=== PATIENT | female | born 1965 | race Caucasian/White ===

== ENCOUNTER 2016-07-30 07:55 | Inpatient (IN) | payer MEDICARE, BC ==
[2016-07-30] MEDS ORDERED: SODIUM CHLORIDE 0.9% 1,000 ML IV STA (08:00)
[2016-07-30] MEDS ORDERED: IPRATROPIUM-ALBUTEROL 3 ML NEB INHALATION STA (08:01)
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
[2016-07-30 08:54] LABS: Basophils # (A) 0.2 k/uL (0-0.2); Basophils % (A) 2 %; CH 30.5; CHCM 31.7; Eosinophils # (A) 0.2 k/uL (0-0.7); Eosinophils % (A) 2 %; HCT 48.5 % (34.0-46.0); HDW 3.07; HGB 15.2 gm/dL (11.4-16.0); Hypochromasia Slight; Luc # (Auto) 0.16; Luc % (Auto) 2; Lymphocytes # (A) 0.9 k/uL (1.0-4.8); Lymphocytes % (A) 11 %; MCH 30.3 pg (25.0-35.0); MCHC 31.3 g/dL (31.0-37.0); MCV 96.7 fL (80.0-100.0); Mean Platelet Volume 8.9; Monocytes # (A) 0.5 k/uL (0-1.0); Monocytes % (A) 7 %; Neutrophils # (A) 5.8 k/uL (1.3-7.7); Neutrophils % (A) 75 %; RBC 5.02 m/uL (3.80-5.40); RDW 15.2 % (11.5-15.5); WBC 7.7 k/uL (3.8-10.6); WBC (Perox) 7.88
[2016-07-30 09:05] LABS: ALT 38 U/L (9-52); AST 24 U/L (14-36); Alkaline Phosphatase 105 U/L (38-126); Anion Gap 12 mmol/L; Blood Urea Nitrogen 19 mg/dL (7-17); Calcium 9.3 mg/dL (8.4-10.2); Carbon Dioxide 28 mmol/L (22-30); Chloride 103 mmol/L (98-107); Glucose 287 mg/dL (74-99); Magnesium 1.9 mg/dL (1.6-2.3); Non-African American GFR(MDRD) 59 (>60 ml/min/1.73 sqM); Potassium 3.7 mmol/L (3.5-5.1); Sodium 143 mmol/L (137-145); Total Bilirubin 0.7 mg/dL (0.2-1.3); Total Protein 6.8 g/dL (6.3-8.2)
[2016-07-30 09:23] LABS: Partial Thromboplastin Time 22.7 sec (22.0-30.0); Prothrombin Time 10.3 sec (9.0-12.0)
[2016-07-30 09:29] LABS: Creatine Kinase 216 U/L (30-135)
[2016-07-30 09:42] LABS: Troponin I <0.012 ng/mL (0.000-0.034)
[2016-07-30 09:45] LABS: Creatine Kinase MB 3.5 ng/mL (0.0-2.4)
--- NOTE | 2016-07-30 10:11 | XR ---
EXAMINATION TYPE: XR chest 1V DATE OF EXAM: 07/30/2016 9:35 AM COMPARISON: 04/08/2016 HISTORY: 51-year-old female difficulty breathing TECHNIQUE: Single frontal view of the chest is obtained. FINDINGS: Heart is mildly enlarged. Diffuse interstitial and vascular prominence. No consolidation or pleural e ffusion. IMPRESSION: Lateral view cannot be obtained due to patient's condition. There is cardiomegaly and mild interstiti al prominence. Correlate for mild pulmonary vascular congestion.
[2016-07-30] MEDS ORDERED: ONDANSETRON 4 MG TAB PO PRN (12:30)
[2016-07-30] MEDS: CLINDAMYCIN 300 MG in DEXTROSE 5% IN WATER 50 ML IVPB SCH ×6 (15:53→23:32)
[2016-07-30] MEDS: SODIUM CHLORIDE 0.9% 1,000 ML IV SCH (15:56)
[2016-07-30] MEDS ORDERED: GABAPENTIN 400 MG CAP PO SCH (16:00)
[2016-07-30] MEDS: IPRATROPIUM-ALBUTEROL 3 ML NEB INHALATION SCH ×2 (16:41→21:09)
[2016-07-30 17:05] LABS: Glucose,Whole Blood 326 mg/dL (75-99)
[2016-07-30] MEDS ORDERED: LORazepam 0.5 MG TAB PO PRN (17:19)
[2016-07-30] MEDS: INSULIN NPL/INSULIN LISPRO 100 UNIT/ML 10 ML VIAL (Humalog 75/25) SQ SCH (17:22)
[2016-07-30] MEDS: INSULIN LISPRO (humaLOG) 300 UNIT/3 ML VIAL SQ SCH ×2 (17:23→20:35)
[2016-07-30] MEDS ORDERED: methylPREDNISolone SOD SUCCI 125 MG/2 ML VIAL IV SCH (18:00)
[2016-07-30] MEDS: ENOXAPARIN 40 MG/0.4 ML SYRINGE SQ SCH (18:52)
[2016-07-30] MEDS: GABAPENTIN 300 MG CAP PO SCH ×2 (18:52→21:27)
[2016-07-30] MEDS: TOPIRAMATE 100 MG TAB PO SCH (18:53)
[2016-07-30 19:32] LABS: Hemoglobin A1C 7.8 % (4.2-6.1)
[2016-07-30] MEDS: MORPHINE SULFATE ER 60 MG TABLET PO SCH (20:33)
[2016-07-30] MEDS: ATORVASTATIN 20 MG TAB PO SCH (20:34)
[2016-07-30] MEDS: busPIRone HCl 10 MG TAB PO SCH (20:34)
[2016-07-30] MEDS: MELOXICAM 7.5 MG TAB PO SCH (20:34)
[2016-07-30] MEDS: METOCLOPRAMIDE 10 MG TAB PO SCH (20:34)
[2016-07-30] MEDS: SERTRALINE 100 MG TAB PO SCH (20:35)
[2016-07-30 20:41] LABS: Glucose,Whole Blood 312 mg/dL (75-99)
[2016-07-30] MEDS: BACLOFEN 10 MG TAB PO SCH (21:27)
[2016-07-30] MEDS: OXYBUTYNIN CHLORIDE 5 MG TAB PO SCH (21:27)
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
[2016-07-30] MEDS: methylPREDNISolone SOD SUCCI 40 MG/ML 1 ML VIAL IV SCH (23:32)
[2016-07-31] MEDS: IPRATROPIUM-ALBUTEROL 3 ML NEB INHALATION SCH ×6 (00:30→19:35)
[2016-07-31 02:26] LABS: Glucose,Whole Blood 216 mg/dL (75-99)
[2016-07-31] MEDS: HYDROcodone/APAP 10-325MG 1 EACH TAB PO PRN ×2 (04:12→23:46)
[2016-07-31] MEDS: LEVOTHYROXINE 100 MCG TAB PO SCH (06:10)
[2016-07-31] MEDS: CLINDAMYCIN 300 MG in DEXTROSE 5% IN WATER 50 ML IVPB SCH ×8 (06:10→23:46)
[2016-07-31] MEDS ORDERED: NON-FORMULARY DRUG (Dextroamphetamine/Amphetamine [Adderall] 20 MG) PO SCH (07:00)
[2016-07-31 07:41] LABS: Glucose,Whole Blood 312 mg/dL (75-99)
[2016-07-31] MEDS: busPIRone HCl 10 MG TAB PO SCH ×2 (08:20→21:23)
[2016-07-31] MEDS: GABAPENTIN 300 MG CAP PO SCH ×3 (08:20→21:26)
[2016-07-31] MEDS: OXYBUTYNIN CHLORIDE 5 MG TAB PO SCH ×3 (08:20→21:26)
[2016-07-31] MEDS: methylPREDNISolone SOD SUCCI 40 MG/ML 1 ML VIAL IV SCH ×2 (08:20→17:59)
[2016-07-31] MEDS: TOPIRAMATE 100 MG TAB PO SCH ×2 (08:21→17:45)
[2016-07-31] MEDS: SERTRALINE 100 MG TAB PO SCH ×2 (08:21→21:26)
[2016-07-31] MEDS: BACLOFEN 10 MG TAB PO SCH ×3 (08:21→21:26)
[2016-07-31] MEDS: MELOXICAM 7.5 MG TAB PO SCH ×2 (08:21→21:24)
[2016-07-31] MEDS: MORPHINE SULFATE ER 60 MG TABLET PO SCH ×2 (08:22→21:27)
[2016-07-31] MEDS: INSULIN NPL/INSULIN LISPRO 100 UNIT/ML 10 ML VIAL (Humalog 75/25) SQ SCH ×2 (08:28→17:49)
[2016-07-31] MEDS: INSULIN LISPRO (humaLOG) 300 UNIT/3 ML VIAL SQ SCH ×4 (08:28→21:23)
[2016-07-31] MEDS ORDERED: LEVOFLOXACIN 500 MG TAB PO SCH (09:00)
[2016-07-31 12:48] LABS: Glucose,Whole Blood 287 mg/dL (75-99)
[2016-07-31] MEDS ORDERED: MAG HYDROX/AL HYDROX/SIMETH 30 ML CUP PO PRN (13:24)
[2016-07-31] MEDS: SODIUM CHLORIDE 0.9% 1,000 ML IV SCH (14:31)
[2016-07-31 14:53] LABS: Appearance,Urine Clear (Clear); Bilirubin,Urine Negative (Negative); Glucose,Urine (UA) 4+ (Negative); Ketones,Urine Negative (Negative); Leukocyte Esterase,Urine Negative (Negative); Nitrite,Urine Negative (Negative); PH, Urine 6.5 (5.0-8.0); Protein,Urine Negative (Negative); Specific Gravity,Urine 1.014 (1.001-1.035); UA Billing (MACRO vs. MICRO) CHEM; Urobilinogen,Urine <2.0 mg/dL (<2.0)
[2016-07-31 17:28] LABS: Glucose,Whole Blood 310 mg/dL (75-99)
[2016-07-31] MEDS: ENOXAPARIN 40 MG/0.4 ML SYRINGE SQ SCH (17:43)
[2016-07-31] MEDS ORDERED: TAMSULOSIN 0.4 MG CAP.ER.24H PO SCH (18:30)
[2016-07-31] MEDS: ATORVASTATIN 20 MG TAB PO SCH (21:23)
[2016-07-31] MEDS: METOCLOPRAMIDE 10 MG TAB PO SCH (21:25)
[2016-07-31 21:31] LABS: Glucose,Whole Blood 243 mg/dL (75-99)
--- NOTE | 2016-07-31 22:56 | PN ---
DATE OF SERVICE: 07/31/2016 PRESENTING COMPLAINT: Pneumonia. INTERVAL HISTORY: This patient presented with pneumonia with sepsis-like picture presentation. Cough is better, breathing better, tolerating a diet. Patient did have urine retention, ( )100. Lying in bed. Review of systems done for constitutional, cardiovascular, GI, pulmonary; as above. Current medications are reviewed that include: IV clindamycin and ( ). On examination, temperature 98.5, pulse 87, respirations 20, blood pressure 120/66, pulse ox 94% on nasal cannula. GENERAL APPEARANCE: Lying in bed, comfortable. EYES: Pupils equal. Conjunctivae normal. NECK: JVD not raised. Mass not palpable. RESPIRATORY: Effort increased. LUNGS: Diminished breath sounds. CARDIOVASCULAR: First and second sounds normal. No edema. ABDOMEN: Soft, nontender. Liver and spleen not palpable. PSYCHIATRY: Awake, answering questions appropriately. INVESTIGATIONS: Accu-Cheks are noted. Blood cultures are negative. ASSESSMENT: 1. Possible pneumonia with sepsis like presentation with some clinical response. 2. Moderate obesity body mass index of 47.8. 3. Diabetes mellitus type 2, chronically on insulin. 4. Primary osteoarthritis of multiple joints, bilateral. 5. Hypothyroidism. 6. Peripheral neuropathy secondary to diabetes. 7. Chronic low back pain. 8. Depression not otherwise specified. 9. Restless leg syndrome. 10. Possible acute metabolic encephalopathy, on presentation with sepsis, with clinical improvement. 11. Acute urinary retention, could be underlying sepsis. PLAN: Straight catheter was placed. We will put the patient on Flomax. Continue with antibiotics for another 24 hours, switched to p.o. steroids.
[2016-08-01] MEDS: IPRATROPIUM-ALBUTEROL 3 ML NEB INHALATION SCH ×5 (00:29→16:31)
[2016-08-01 03:20] LABS: Glucose,Whole Blood 152 mg/dL (75-99)
[2016-08-01] MEDS: CLINDAMYCIN 300 MG in DEXTROSE 5% IN WATER 50 ML IVPB SCH ×4 (05:46→13:14)
[2016-08-01] MEDS: LEVOTHYROXINE 100 MCG TAB PO SCH (05:47)
[2016-08-01 07:55] LABS: Glucose,Whole Blood 283 mg/dL (75-99)
[2016-08-01 08:13] VITALS: BP 157/67; RESP 22; TEMP 97.6
[2016-08-01] MEDS: busPIRone HCl 10 MG TAB PO SCH (08:33)
[2016-08-01] MEDS: BACLOFEN 10 MG TAB PO SCH ×2 (08:33→16:58)
[2016-08-01] MEDS: INSULIN LISPRO (humaLOG) 300 UNIT/3 ML VIAL SQ SCH ×2 (08:33→13:14)
[2016-08-01] MEDS: INSULIN NPL/INSULIN LISPRO 100 UNIT/ML 10 ML VIAL (Humalog 75/25) SQ SCH (08:33)
[2016-08-01] MEDS: GABAPENTIN 300 MG CAP PO SCH ×2 (08:34→16:58)
[2016-08-01] MEDS: MORPHINE SULFATE ER 60 MG TABLET PO SCH (08:34)
[2016-08-01] MEDS: MELOXICAM 7.5 MG TAB PO SCH (08:34)
[2016-08-01] MEDS: SERTRALINE 100 MG TAB PO SCH (08:35)
[2016-08-01] MEDS: OXYBUTYNIN CHLORIDE 5 MG TAB PO SCH ×2 (08:35→16:58)
[2016-08-01] MEDS: TOPIRAMATE 100 MG TAB PO SCH (08:35)
[2016-08-01] MEDS ORDERED: predniSONE 20 MG TAB PO SCH (09:00)
[2016-08-01 12:17] LABS: Glucose,Whole Blood 278 mg/dL (75-99)
[2016-08-01] MEDS: SODIUM CHLORIDE 0.9% 1,000 ML IV SCH (13:17)
[2016-08-01 16:34] VITALS: PULSE 70
--- NOTE | 2016-08-03 12:44 | DS ---
DATE OF ADMISSION: 07/30/2016 DATE OF DISCHARGE: 08/01/2016 FINAL DIAGNOSIS(ES): 1. Possible pneumonia with sepsis ( ) presentation. 2. Moderate obesity body mass index of 47.8. 3. Diabetes mellitus type 2, chronically on insulin. 4. Chronic urinary incontinence. 5. Primary osteoarthritis, multiple joints, bilateral. 6. Hypothyroidism, chronic. 7. Peripheral neuropathy secondary to diabetes. 8. Chronic low back pain, probably osteoarthritis. 9. Depression not otherwise specified. 10. Restless leg syndrome. 11. Acute metabolic encephalopathy on presentation with sepsis could be some contribution from pain medications. 12. Acute urinary retention, probably from underlying sepsis. HOSPITAL COURSE: This patient presented with pneumonia, sepsis like picture, responded well to antibiotics. Back to her baseline. Keen to go home. The patient with rather hefty dose of pain medications. I did make some changes. The patient is still well controlled. I did decrease Neurontin from 800 mg 3 times a day down to 400 mg 3 times a day. Also, the baclofen from 20 mg three times a day to 10 mg 3 times a day. As ( ) higher doses of pain medication, normally the side effects take over with not too much benefit in pain. Care was discussed with the patient. On examination: LUNGS: Fair air entry. PSYCH: Alert and oriented x3. Mood and affect is normal. DISCHARGE MEDICATIONS: 1. Lipitor 20 mg q.h.s. 2. Adderall 20 mg b.i.d. 3. Lasix ( ) mg daily p.r.n. 4. [place] 10 1 tablets q.8 p.r.n. 5. Ativan 0.5 p.o. daily p.r.n. 6. Levothyroxine 300 mcg p.o. daily. 7. Mobic 7.5 p.o. b.i.d. 8. MS Contin 50 mg p.o. q.12. 9. Zofran 1 mg p.o. q.8 p.r.n. 10. Ditropan 500 mg p.o. t.i.d. 11. Potassium 20 meq p.o. daily. 12. Zoloft 100 mg p.o. b.i.d. 13. Topamax 100 mg p.o. daily. 14. ( ) mg before supper. 15. BuSpar 10 mg p.o. b.i.d. 16. Requip 1 mg p.o. q.h.s. 17. Humalog mix 75/( ) 40 units subcu b.i.d. 18. Proventil HFA 2 puffs q.6 p.r.n. 19. Humalog per t.i.d. 20. Silvadene cream topical daily. 21. Baclofen 10 mg p.o. t.i.d. 22. Clindamycin 150 mg p.o. q.6 24 capsules. 23. Neurontin 400 mg p.o. t.i.d., new dose. 24. Flomax 0.4 mg at supper. 25. Prednisone 40 mg for 3 days. Patient to follow up with Dr. Sánchez on 08/04/2016. Care was discussed with the patient.
== END 2016-08-01 17:36 | disposition home health service (06) | DRG 871 ==
LOC: EC 07:55 → 5MS5E 12:28 → 4MS4W 14:40
PROVIDERS: ADMIT Hospitalist; ATTEND Hospitalist
DX: A41.9 Sepsis, unspecified organism (principal); J18.9 Pneumonia, unspecified organism; G93.41 Metabolic encephalopathy; J44.0 Chronic obstructive pulmonary disease with (acute) lower respiratory infection; J44.1 Chronic obstructive pulmonary disease with (acute) exacerbation; E11.42 Type 2 diabetes mellitus with diabetic polyneuropathy; I50.9 Heart failure, unspecified; E03.9 Hypothyroidism, unspecified; E66.01 Morbid (severe) obesity due to excess calories; F32.9 Major depressive disorder, single episode, unspecified; G25.81 Restless legs syndrome; G89.4 Chronic pain syndrome; M15.9 Polyosteoarthritis, unspecified; R09.02 Hypoxemia; R32 Unspecified urinary incontinence; R33.9 Retention of urine, unspecified; I65.29 Occlusion and stenosis of unspecified carotid artery; M47.896 Other spondylosis, lumbar region; R53.82 Chronic fatigue, unspecified; Z68.42 Body mass index [BMI] 45.0-49.9, adult; Z79.4 Long term (current) use of insulin; Z79.899 Other long term (current) drug therapy; Z86.14 Personal history of Methicillin resistant Staphylococcus aureus infection; Z88.5 Allergy status to narcotic agent; Z88.0 Allergy status to penicillin; Z91.041 Radiographic dye allergy status; Z91.040 Latex allergy status
CPT/HCPCS: 36415; 71010; 80053; 81003; 82550; 82553; 83036; 83605; 83735; 83880; 84484; 85025; 85610; 85730; 87040; 87077; 87086; 87186; 93005; 94640; 94760; 96360; 96361; 99291

== ENCOUNTER → 2020-08-02 | Outpatient (CLI) | payer MEDICARE ==
--- NOTE | 2020-08-02 19:14 | US ---
EXAMINATION TYPE: US venous doppler duplex LE DATE OF EXAM: 08/02/2020 6:45 PM COMPARISON: US 2013 CLINICAL HISTORY: edema. Edema and pain. No hx of DVT. SIDE PERFORMED: Bilateral TECHNIQUE: The lower extremity deep venous system is examined utilizing real time linear array sonog marciano with graded compression, doppler sonography and color-flow sonography. VESSELS IMAGED: Common Femoral Vein Deep Femoral Vein Greater Saphenous Vein * Femoral Vein Popliteal Vein Small Saphenous Vein * Proximal Calf Veins (* superficial vessels) *Exam is limited due to large patient body habitus. Right Leg: No evidence of DVT in veins imaged at this time. Exam limited. Unable to fully compress d istal femoral veins bilaterally due to patient's pain tolerance. Left Leg: No evidence of DVT in veins imaged at this time. Exam limited. Unable to fully compress di stal femoral veins bilaterally due to patient's pain tolerance. IMPRESSION: No evidence of deep vein thrombosis in the left leg.
== END | disposition home or self-care (01) ==
LOC: RADUSMAIN 17:23
PROVIDERS: ATTEND Family Medicine
DX: R60.0 Localized edema (principal)
CPT/HCPCS: 93970

== ENCOUNTER 2021-04-15 13:54 | Emergency (ER) | payer MEDICARE ==
[2021-04-15 14:11] VITALS: RESP 18
[2021-04-15] MEDS ORDERED: HYDROmorphone 0.5 MG/0.5 ML SYRINGE IM STA (14:34)
--- NOTE | 2021-04-15 16:05 | XR ---
EXAMINATION TYPE: XR femur RT, XR tibia fibula RT DATE OF EXAM: 04/15/2021 CLINICAL HISTORY: Fall injury with pain TECHNIQUE: Two views of the right femur and leg are obtained. COMPARISON: None. FINDINGS: No acute fracture or dislocation in the right femur. Moderate to severe axial joint space l oss in the right hip with moderate acetabular spurring. There is lateral fixating plate through healed fracture distal femur. Metallic hardware from total ri ght knee arthroplasty is present. No new fracture is seen. No acute displaced fracture in the right tibia or fibula. Right ankle joint appears within normal falcon its. The hoh osseous structures are demineralized. There are soft tissue phleboliths anterior prox imal leg level. There is moderate diffuse subcutaneous edema and soft tissue swelling noted greatest distally. IMPRESSION: There is no acute fracture or dislocation seen in the right leg or femur.
[2021-04-15] MEDS ORDERED: IBUPROFEN 600 MG TAB PO STA (16:18)
[2021-04-15] MEDS ORDERED: ACETAMINOPHEN TAB 325 MG TAB PO STA (16:18)
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
[2021-04-15 19:25] VITALS: BP 105/66; PULSE 51; TEMP 99.7
== END 2021-04-15 19:26 | disposition home or self-care (01) ==
LOC: EC 13:54
DX: S70.11XA Contusion of right thigh, initial encounter (principal); S80.11XA Contusion of right lower leg, initial encounter; E11.40 Type 2 diabetes mellitus with diabetic neuropathy, unspecified; I50.9 Heart failure, unspecified; M19.90 Unspecified osteoarthritis, unspecified site; F32.9 Major depressive disorder, single episode, unspecified; Z79.1 Long term (current) use of non-steroidal anti-inflammatories (NSAID); Z79.52 Long term (current) use of systemic steroids; Z79.4 Long term (current) use of insulin; Z79.890 Hormone replacement therapy; Z79.51 Long term (current) use of inhaled steroids; Z79.899 Other long term (current) drug therapy; Z88.0 Allergy status to penicillin; Z88.1 Allergy status to other antibiotic agents; Z90.49 Acquired absence of other specified parts of digestive tract; Z83.3 Family history of diabetes mellitus; W05.0XXA Fall from non-moving wheelchair, initial encounter
CPT/HCPCS: 73552; 73590; 99284; 96372; J1170

== ENCOUNTER 2021-12-25 14:26 | Inpatient (IN) | payer MEDICARE ==
[2021-12-25 14:46] LABS: Glucose,Whole Blood 456 mg/dL (75-99)
[2021-12-25] MEDS ORDERED: SODIUM CHLORIDE 0.9% 1,000 ML IV ONE ×4 (14:51→23:18)
[2021-12-25 15:01] LABS: Appearance,Urine Clear (Clear); Bilirubin,Urine 1+ (Negative); Blood,Urine Large (Negative); Color,Urine Yellow; Glucose,Urine (UA) 4+ (Negative); Leukocyte Esterase,Urine Negative (Negative); Mucus,Urine Rare /hpf; Nitrite,Urine Negative (Negative); PH, Urine 6.5 (5.0-8.0); Protein,Urine 2+ (Negative); RBC,Urine 5 /hpf (0-5); Specific Gravity,Urine 1.027 (1.001-1.035); Squamous Epithelial Cell,Urine <1 /hpf (0-4); WBC,Urine 4 /hpf (0-5)
[2021-12-25 15:09] LABS: Ketones,Urine 3+ (Negative)
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
[2021-12-25 15:13] LABS: Basophils # (A) 0.1 k/uL (0-0.2); Basophils % (A) 1 %; Eosinophils % (A) 0 %; HGB 18.4 gm/dL (11.4-16.0); Hypochromasia Slight; Lymphocytes # (A) 0.9 k/uL (1.0-4.8); Lymphocytes % (A) 7 %; MCH 30.7 pg (25.0-35.0); MCHC 32.4 g/dL (31.0-37.0); MCV 94.6 fL (80.0-100.0); Mean Platelet Volume 9.8; Monocytes # (A) 0.8 k/uL (0-1.0); Monocytes % (A) 6 %; Neutrophils # (A) 11.3 k/uL (1.3-7.7); Neutrophils % (A) 85 %; Platelet Count 201 k/uL (150-450); RBC 6.01 m/uL (3.80-5.40); RDW 15.1 % (11.5-15.5); WBC 13.4 k/uL (3.8-10.6)
[2021-12-25] MEDS ORDERED: cefTRIAXone IN SWFI 1,000 MG/10 ML SYRINGE IVP STA (15:20)
[2021-12-25 15:21] LABS: ABG Base Excess -5.9 mmol/L; ABG HCO3 20 mmol/L (21-25); ABG Oxygen Saturation 89.7 % (94-97); ABG PCO2 35 mmHg (35-45); ABG PH 7.36 (7.35-7.45); ABG TCO2 21 mmol/L (19-24); Allen Test Performed? Yes
[2021-12-25 15:22] LABS: HCT 56.8 % (34.0-46.0)
[2021-12-25 15:24] LABS: ALT 28 U/L (4-34); AST 100 U/L (14-36); African American GFR (CKD) 40 (>60 ml/min/1.73 sqM); Albumin 4.3 g/dL (3.5-5.0); Alkaline Phosphatase 138 U/L (38-126); Anion Gap 22 mmol/L; Blood Urea Nitrogen 27 mg/dL (7-17); Calcium 9.6 mg/dL (8.4-10.2); Carbon Dioxide 22 mmol/L (22-30); Chloride 90 mmol/L (98-107); Glucose 421 mg/dL (74-99); Non-African American GFR(CKD) 35 (>60 ml/min/1.73 sqM); Potassium 2.8 mmol/L (3.5-5.1); Sodium 134 mmol/L (137-145); Total Bilirubin 1.1 mg/dL (0.2-1.3)
[2021-12-25 15:25] LABS: ABG PO2 57 mmHg (83-108)
--- NOTE | 2021-12-25 15:46 | XR ---
EXAMINATION TYPE: XR chest 1V portable DATE OF EXAM: 12/25/2021 COMPARISON: Chest x-ray July 30, 2016 HISTORY: Altered mental status and weakness. TECHNIQUE: Single AP portable frontal upright view of the chest is obtained. FINDINGS: There is no suspicious new focal air space opacity, pleural effusion, or pneumothorax seen . The cardiac silhouette size is mildly enlarged. The osseous structures are intact. IMPRESSION: Mild cardiomegaly without acute pulmonary process.
[2021-12-25] MEDS ORDERED: Magnesium Replacement Protocol 1 EACH MISC MISCELLANE PRN (16:16)
[2021-12-25] MEDS ORDERED: INSULIN REGULAR BOLUS (FROM DRIP BAG) IV ONE (16:16)
[2021-12-25] MEDS ORDERED: Potassium Replacement Protocol 1 EACH MISC MISCELLANE PRN (16:16)
[2021-12-25] MEDS ORDERED: ACETAMINOPHEN TAB 500 MG TAB PO STA (16:18)
[2021-12-25] MEDS: INSULIN REGULAR 100 UNIT in SODIUM CHLORIDE 0.9% 100 ML IV SCH ×2 (16:43→23:14)
[2021-12-25] MEDS: SODIUM CHLORIDE 0.9% 1,000 ML IV SCH ×2 (16:45→23:41)
[2021-12-25 16:49] LABS: Glucose,Whole Blood 433 mg/dL (70-110)
[2021-12-25] MEDS ORDERED: NALOXONE 0.4 MG/ML 1 ML VIAL IV PRN (17:29)
[2021-12-25] MEDS ORDERED: hydrOXYzine HCL 25 MG TAB PO PRN (17:32)
[2021-12-25] MEDS ORDERED: LORazepam 0.5 MG TAB PO PRN (17:32)
[2021-12-25] MEDS ORDERED: PROCHLORPERAZINE 10 MG TAB PO PRN (17:32)
[2021-12-25 17:46] LABS: Glucose,Whole Blood 356 mg/dL (70-110)
[2021-12-25 17:51] LABS: INR 1.5 (<1.2); Partial Thromboplastin Time 23.7 sec (22.0-30.0); Prothrombin Time 15.4 sec (9.0-12.0)
[2021-12-25 18:50] LABS: Amphetamine Screen,Urine Not Detected (NotDetected); Barbiturate Screen,Urine Not Detected (NotDetected); Benzodiazepines Screen,Urine Not Detected (NotDetected); Cocaine Screen,Urine Not Detected (NotDetected); Methadone Screen, Urine Not Detected (NotDetected); Opiate Screen,Urine Detected (NotDetected); Oxycodone Screen, Urine Not Detected (NotDetected); Phencyclidine Screen,Urine Not Detected (NotDetected); Tricyclic Antidepressant,Urine Not Detected (NotDetected); Urn Cannabinoid Scrn Not Detected (NotDetected)
[2021-12-25 18:51] LABS: Glucose,Whole Blood 339 mg/dL (70-110)
[2021-12-25] MEDS ORDERED: POTASSIUM CHLORIDE 20 MEQ in WATER FOR INJECTION 1 100ML.BAG IVPB STA (18:59)
[2021-12-25] MEDS ORDERED: POTASSIUM BICARBONATE/CIT AC 20 MEQ TABLET.EFF PO ONE (19:00)
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
[2021-12-25 20:08] LABS: Glucose,Whole Blood 272 mg/dL (70-110)
[2021-12-25] MEDS ORDERED: BACLOFEN 10 MG TAB PO SCH (21:00)
[2021-12-25 21:18] LABS: African American GFR (CKD) 46 (>60 ml/min/1.73 sqM); Anion Gap 15 mmol/L; Blood Urea Nitrogen 26 mg/dL (7-17); Carbon Dioxide 21 mmol/L (22-30); Chloride 100 mmol/L (98-107); Glucose 207 mg/dL (74-99); Non-African American GFR(CKD) 40 (>60 ml/min/1.73 sqM); Sodium 136 mmol/L (137-145)
--- NOTE | 2021-12-25 21:22 | US ---
EXAMINATION TYPE: US kidneys/renal and bladder DATE OF EXAM: 12/25/2021 COMPARISON: NONE CLINICAL HISTORY: KATELYNN. DKA, KATELYNN EXAM MEASUREMENTS: Right Kidney: 9.3 x 4.8 x 4.2 cm Left Kidney: Unable to visualize Right Kidney: Very limited visualization due to morbidly obese patient. Left Kidney: Unable to visualize due to large body habitus and immobility. Bladder: Not visualized There is no evidence for hydronephrosis at this point in time. No nephrolithiasis is seen. No kacey s are identified. The urinary bladder is anechoic. Bilateral ureteral jets are seen. IMPRESSION: 1. Limited evaluation without gross evidence for right hydronephrosis. 2. Left kidney is not visualized. 3. Bladder not visualized.
[2021-12-25 21:26] LABS: Glucose,Whole Blood 232 mg/dL (70-110)
[2021-12-25 21:32] LABS: Phosphorus <0.5 mg/dL (2.5-4.5)
--- NOTE | 2021-12-25 22:00 | CT ---
EXAMINATION TYPE: CT brain wo con CT DLP: 1241.4 mGycm, Automated exposure control for dose reduction was used. DATE OF EXAM: 12/25/2021 9:48 PM COMPARISON: None. CLINICAL INDICATION:Female, 56 years old with history of altered MS, ams TECHNIQUE: Brain: Multiple axial CT images of the brain were obtained without IV contrast. FINDINGS: Brain: Extra-axial spaces: No abnormal extra-axial fluid collections. Ventricular system: Within normal limits Cerebral parenchyma: No acute intraparenchymal hemorrhage or mass effect. The mendoza-white junction is well differentiated. Cerebellum: Unremarkable. Mass effect: No evidence of midline shift. Intracranial vasculature: unremarkable Soft tissues: Normal. Calvarium/osseous structures: No depressed skull fracture. Paranasal sinuses and mastoid air cells: Mild scattered paranasal sinus disease. Visualized orbits: Bilateral aphakia IMPRESSION: No acute intracranial process.
[2021-12-25 22:37] LABS: Glucose,Whole Blood 256 mg/dL (70-110)
[2021-12-25] MEDS ORDERED: DEXTROSE 5%-0.45% NACL 1,000 ML with POTASSIUM CHLORIDE 20 MEQ IV SCH ×2 (23:00)
[2021-12-25] MEDS: LORATADINE 10 MG TAB PO SCH (23:12)
[2021-12-25] MEDS: METOCLOPRAMIDE 10 MG TAB PO SCH (23:12)
[2021-12-25] MEDS: MORPHINE SULFATE ER 60 MG TABLET PO SCH (23:12)
[2021-12-25] MEDS: POTAS-SOD-PHOS 278-164-250 MG 1 EACH PACKET PO SCH (23:13)
[2021-12-25] MEDS: busPIRone HCl 10 MG TAB PO SCH (23:21)
[2021-12-25] MEDS: tiZANidine 4 MG TAB PO SCH (23:22)
[2021-12-25] MEDS: Dextroamphetamine/Amphetamine [Adderall] PO SCH (23:22)
[2021-12-25] MEDS: SERTRALINE 100 MG TAB PO SCH (23:22)
[2021-12-25] MEDS: PANTOPRAZOLE 40 MG TABLET PO SCH (23:22)
[2021-12-25 23:29] LABS: Glucose,Whole Blood 190 mg/dL (70-110)
[2021-12-26 00:43] LABS: Glucose,Whole Blood 230 mg/dL (70-110)
[2021-12-26] MEDS: HEPARIN SODIUM,PORCINE/PF 5,000 UNIT/0.5 ML SYRINGE SQ SCH ×4 (01:31→22:34)
[2021-12-26 01:37] LABS: Glucose,Whole Blood 236 mg/dL (70-110)
[2021-12-26 01:41] LABS: Albumin 3.4 g/dL (3.5-5.0); Calcium 8.7 mg/dL (8.4-10.2); Total Bilirubin 0.8 mg/dL (0.2-1.3); Total Protein 5.9 g/dL (6.3-8.2)
[2021-12-26 02:02] LABS: Potassium 2.4 mmol/L (3.5-5.1)
[2021-12-26 02:03] LABS: Phosphorus 0.8 mg/dL (2.5-4.5)
--- NOTE | 2021-12-26 02:15 | CT ---
EXAM: CT Abdomen and Pelvis Without Intravenous Contrast CLINICAL HISTORY: Sepsis Reason: sepsis TECHNIQUE: Axial computed tomography images of the abdomen and pelvis without intravenous contrast. CTDI is 39 mGy and DLP is 2633.2 mGy-cm. This CT exam was performed using one or more of the following dose reduction techniques: automated exposure control, adjustment of the mA and/or kV according to patient size, and/or use of iterative reconstruction technique. COMPARISON: Ultrasound from December 25, 2021 FINDINGS: Lung bases: Trace amount of edema or atelectasis in the lung bases. ABDOMEN: Liver: The liver is mildly enlarged at 18 cm craniocaudad. Gallbladder and bile ducts: Previous cholecystectomy. No biliary duct dilation is seen. Pancreas: Unremarkable. No ductal dilation. Spleen: Unremarkable. No splenomegaly. Adrenals: Unremarkable. No mass. Kidneys and ureters: The kidneys are unremarkable. No hydronephrosis or ureterolithiasis is seen. The urinary bladder is decompressed by Martin catheter. Stomach and bowel: Anterior pelvic wall hernia containing a section of sigmoid colon. There is mild gaseous distention of the sigmoid colon. No sign of obstruction. No pneumoperitoneum, or free fluid is seen. No mucosal thickening. PELVIS: Appendix: No findings to suggest acute appendicitis. Bladder: See above. Reproductive: Unremarkable as visualized. ABDOMEN and PELVIS: Intraperitoneal space: See above. Bones/joints: No acute fracture. No dislocation. Soft tissues: Hazy increased density in the right posterior thigh and buttock soft tissues could represent contusion, cellulitis, or developing decubitus ulcer. Vasculature: The abdominal aorta is mildly calcified but nondilated. Lymph nodes: Unremarkable. No enlarged lymph nodes. IMPRESSION: 1. The kidneys are unremarkable. No hydronephrosis or ureterolithiasis is seen. The urinary bladder is decompressed by Martin catheter. 2. Hazy increased density in the right posterior thigh and buttock soft tissues could represent contusion, cellulitis, or developing decubitus ulcer. 3. Anterior pelvic wall hernia containing a section of sigmoid colon. There is mild gaseous distention of the sigmoid colon. No sign of obstruction. No pneumoperitoneum, or free fluid is seen.
[2021-12-26] MEDS: POTASSIUM CHLORIDE 10 MEQ in WATER FOR INJECTION 1 100ML.BAG IVPB SCH ×13 (02:22→22:31)
[2021-12-26 02:31] LABS: Glucose,Whole Blood 177 mg/dL (70-110)
[2021-12-26] MEDS ORDERED: Phosphorus Replacement Protoco 1 EACH MISC MISCELLANE PRN (02:41)
[2021-12-26 03:36] LABS: Glucose,Whole Blood 209 mg/dL (70-110)
[2021-12-26] MEDS: POTASSIUM PHOSPHATE 10 MMOL in SODIUM CHLORIDE 0.9% 250 ML IV SCH ×3 (03:39→08:51)
[2021-12-26] MEDS ORDERED: INSULIN NPH 300 UNIT/3 ML VIAL SQ ONE (04:08)
[2021-12-26] MEDS ORDERED: DEXTROSE 5%-0.45% NACL 1,000 ML IV SCH (04:15)
[2021-12-26 04:34] LABS: Glucose,Whole Blood 213 mg/dL (70-110)
[2021-12-26] MEDS ORDERED: D5-0.45% NACL WITH KCL 20MEQ/L 1,000 ML IV SCH (05:30)
[2021-12-26 05:40] LABS: Albumin 3.2 g/dL (3.5-5.0); C Reactive Protein 1.6 mg/dL (<1.0); Calcium 8.5 mg/dL (8.4-10.2); Potassium 2.9 mmol/L (3.5-5.1); Total Bilirubin 0.9 mg/dL (0.2-1.3); Total Protein 5.5 g/dL (6.3-8.2)
[2021-12-26] MEDS: LEVOTHYROXINE 100 MCG TAB PO SCH (05:56)
[2021-12-26] MEDS: DOCUSATE 100 MG CAP PO SCH (05:56)
[2021-12-26 06:53] LABS: Glucose,Whole Blood 293 mg/dL (70-110)
[2021-12-26] MEDS: INSULIN ASPART (NovoLOG) 100 UNIT/ML VIAL SQ SCH ×3 (06:56→17:14)
[2021-12-26] MEDS: OXYBUTYNIN 15 MG TAB.ER.24 PO SCH ×2 (07:00→17:22)
[2021-12-26] MEDS ORDERED: Potassium Replacement Protocol 1 EACH MISC MISCELLANE PRN ×2 (07:44→10:57)
--- NOTE | 2021-12-26 08:29 | CA ---
Transthoracic Echo Report Name: Carolina Cedillo Age: 56 Gender: F : 1965 Exam Date: 12/25/2021 15:41 Exam Location: [facility] Ht (in): 67 Wt (lb): 268 Ordering Physician: Andrew Johnson MD Attending/Referring Phys: Engineer And Geologist Anabella Stack RDCS Procedure CPT: Indications: abnormal ekg Cardiac Hx: Technical Quality: Technically difficult study Contrast 1: Lumason Total Dose (mL): 1 Contrast 2: Total Dose (mL): MEASUREMENTS (Male / Female) Normal Values 2D ECHO LV Diastolic Diameter PLAX 2.6 cm 4.2 - 5.9 / 3.9 - 5.3 cm LV Systolic Diameter PLAX 1.6 cm IVS Diastolic Thickness 1.4 cm 0.6 - 1.0 / 0.6 - 0.9 cm LVPW Diastolic Thickness 1.4 cm 0.6 - 1.0 / 0.6 - 0.9 cm LV Relative Wall Thickness 1.1 RV Internal Dim ED PLAX 1.8 cm M-MODE Aortic Root Diameter MM 2.5 cm LA Systolic Diameter MM 1.1 cm LA Ao Ratio MM 0.4 AV Cusp Separation MM 1.6 cm DOPPLER AV Peak Velocity 177.0 cm/s AV Peak Gradient 12.5 mmHg LVOT Peak Velocity 133.9 cm/s LVOT Peak Gradient 7.2 mmHg MV Area PHT 6.8 cm??? MR Peak Velocity 153.8 cm/s MR Peak Gradient 9.5 mmHg Mitral E Point Velocity 52.7 cm/s Mitral A Point Velocity 98.9 cm/s Mitral E to A Ratio 0.5 MV Deceleration Time 112.0 ms TR Peak Velocity 221.0 cm/s TR Peak Gradient 19.5 mmHg Right Ventricular Systolic Press 24.5 mmHg FINDINGS Left Ventricle Moderately increased septal wall thickness. Moderately increased posterior wall thickness. Left ventricular ejection fraction is estimated at 65-70 %. Hyperdynamic due to heart rate.left ventricular cavity size normal. Right Ventricle The right ventricle is normal in size and function. Right Atrium The right atrium is normal in size. Left Atrium The left atrium is normal in size. Mitral Valve Structurally normal mitral valve without significant stenosis or prolapse. There is mild mitral regurgitation. Aortic Valve Structurally normal aortic valve without significant sclerosis or stenosis. There is no aortic regurgitation. Tricuspid Valve Structurally normal tricuspid valve without significant stenosis. Pulmonary artery systolic pressure is normal. Trace tricuspid regurgitation. Pulmonic Valve Structurally normal pulmonic valve without significant stenosis. There is no pulmonic regurgitation. Pericardium Normal pericardium without effusion. Aorta Normal aortic root dimension. CONCLUSIONS Technically difficult study. Echo contrast was used him enhance quality of images. LV systolic function is probably normal and may be hyperdynamic. Doppler exam is suboptimal [place] no significant abnormalities. No pericardial effusion. This is however a difficult study overall. Previewed by: Dr. Suzy Eisenberg MD (Electronically Signed) Final Date: 26 December 2021 08:28
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
[2021-12-26] MEDS: Dextroamphetamine/Amphetamine [Adderall] PO SCH ×2 (08:50→21:23)
[2021-12-26] MEDS: SODIUM CHLORIDE 0.9% 1,000 ML IV SCH ×3 (08:53→22:40)
[2021-12-26] MEDS ORDERED: TOPIRAMATE 100 MG TAB PO SCH ×2 (09:00→17:30)
[2021-12-26] MEDS: tiZANidine 4 MG TAB PO SCH ×2 (11:29→21:25)
[2021-12-26 11:42] LABS: Glucose,Whole Blood 313 mg/dL (70-110)
[2021-12-26] MEDS ORDERED: POTASSIUM CHLORIDE 10 MEQ in WATER FOR INJECTION 1 100ML.BAG IVPB STA (12:50)
--- NOTE | 2021-12-26 12:57 | P.PN ---
Subjective Progress Note Date: 12/26/21 History of Present Illness per H&P H&P Date: 12/25/21 56-year-old female with past medical history significant for insulin-dependent type 2 diabetes mellitus chronic pain syndrome secondary to chronic back pain and right hip pain, hypothyroidism. Patient is not a very good history secondary to altered mental status. She is alert oriented to herself. She appears very weak and fatigue and disheveled. RN and emergency room stated that EMS told her that her brother called EMS due to increased weakness and altered mental status. Patient is complaining of right ear pain. She denies any chest pain but she stated that she short of breath. Other than that unable to obtain a good review of system secondary to altered mental status. Interval history: Patient was and examined at the bedside. She is alert oriented 2. She is complaining of chronic buttock and hip pain. Patient denies any chest pain shortness of breath. Physical examination: General: Oriented 2 Obese. appears older than stated age Derm: warm, dry Head: atraumatic, normocephalic, symmetric Eyes: EOMI, no lid lag, anicteric sclera Mouth: Dry Cardiovascular: S1S2 reg, no murmur, positive posterior tibial pulse bilateral, Lungs: CTA bilateral, no rhonchi, no rales , no accessory muscle use Abdominal: soft, obese nontender to palpation, no guarding, no appreciable organomegaly. Abdominal fold candidiasis Ext: Chronic venous changes, no edema, no contractures Neuro: Unable to assess secondary to confusion Psych: Confused Assessment and plan: #Acute toxic metabolic encephalopathy -Stable -Medications including narcotics and gabapentin -Worsening mental status secondary to acute renal failure and dehydration -CT of the head without contrast ordered -Neuro consultation was placed #Insulin-dependent type 2 diabetes mellitus with Uncontrolled hyperglycemia -Patient currently on insulin drip -8.1 #Severe dehydration with hemoconcentration -Resume IV fluids #Lactic acidosis -Computed tomography scan of chest, without contrast abdomen and pelvis unremarkable -Resume IV fluids #Chronic pain syndrome -Patient on gabapentin and long-acting morphine and oxycodone for breakthrough pain -Holding long-acting morphine and gabapentin due to altered mental status and acute toxic metabolic encephalopathy #Fever of unknown origin -Blood culture urine culture ordered -Negative influenza and COVID 19 -Patient on Rocephin and Flagyl per infectious disease recommendation #Severe hypokalemia -Replaced -Holding home dose Lasix #Type II and a STEMI secondary to above -2-D echo ordered and cardiology consultation was placed -Trend troponin #Hypothyroidism -TSH of resume levothyroxine #Super Morbid obesity BMI 42 #Abdominal fold candidiasis -Nystatin powder #Severe debility and deconditioning -Consult PT/OT #Right buttock because ulcer -Present on admission -Consult wound care #DVT prophylaxis with subcutaneous heparin Objective - Vital Signs Vital signs: Vital Signs Temp 98.7 F 12/26/21 11:19 Pulse 121 H 12/26/21 11:19 Resp 17 12/26/21 11:19 BP 105/55 12/26/21 11:19 Pulse Ox 94 L 12/26/21 11:19 FiO2 Intake & Output 12/25/21 12/26/21 12/26/21 18:59 06:59 18:59 Intake Total 221.192 Output Total 900 Balance -678.808 Weight 122 kg 125 kg Intake: Intake, IV Titration 121.192 Amount Insulin Regular 100 unit 121.192 In Sodium Chloride 0.9% 100 ml @ 0.1 UNITS/KG/HR 12.322 mls/hr IV .[id number] [facility] Rx#:[id number] Oral 100 Output: Urine 900 Other: Voiding Method Indwelling Catheter Indwelling Catheter - Labs CBC & Chem 7: 12/25/21 14:57 12/26/21 04:57 Labs: Abnormal Lab Results - Last 24 Hours (Table) 12/25/21 12/25/21 12/25/21 Range/Units 14:44 14:46 14:46 WBC (3.8-10.6) k/uL RBC (3.80-5.40) m/uL Hgb (11.4-16.0) gm/dL Hct (34.0-46.0) % Neutrophils # (1.3-7.7) k/uL Lymphocytes # (1.0-4.8) k/uL PT (9.0-12.0) sec INR (<1.2) ABG pO2 (83-108) mmHg ABG HCO3 (21-25) mmol/L ABG O2 Saturation (94-97) % Sodium (137-145) mmol/L Potassium (3.5-5.1) mmol/L Chloride (98-107) mmol/L Carbon Dioxide (22-30) mmol/L BUN (7-17) mg/dL Creatinine (0.52-1.04) mg/dL Glucose (74-99) mg/dL POC Glucose (mg/dL) 456 H (75-99) mg/dL Hemoglobin A1c (0.0-6.0) % Plasma Lactic Acid Roddy (0.7-2.0) mmol/L Phosphorus (2.5-4.5) mg/dL AST (14-36) U/L Alkaline Phosphatase (38-126) U/L CK-MB (CK-2) (0.0-2.4) ng/mL Troponin I (0.000-0.034) ng/mL C-Reactive Protein (<1.0) mg/dL Total Protein (6.3-8.2) g/dL Albumin (3.5-5.0) g/dL Urine Protein 2+ H (Negative) Urine Glucose (UA) 4+ H (Negative) Urine Ketones 3+ H (Negative) Urine Blood Large H (Negative) Urine Bilirubin 1+ H (Negative) Urine Mucus Rare H (None) /hpf Urine Opiates Screen Detected H (NotDetected) 12/25/21 12/25/21 12/25/21 Range/Units 14:57 14:57 14:57 WBC 13.4 H (3.8-10.6) k/uL RBC 6.01 H (3.80-5.40) m/uL Hgb 18.4 H (11.4-16.0) gm/dL Hct 56.8 H (34.0-46.0) % Neutrophils # 11.3 H (1.3-7.7) k/uL Lymphocytes # 0.9 L (1.0-4.8) k/uL PT (9.0-12.0) sec INR (<1.2) ABG pO2 (83-108) mmHg ABG HCO3 (21-25) mmol/L ABG O2 Saturation (94-97) % Sodium 134 L (137-145) mmol/L Potassium 2.8 L (3.5-5.1) mmol/L Chloride 90 L (98-107) mmol/L Carbon Dioxide (22-30) mmol/L BUN 27 H (7-17) mg/dL Creatinine 1.61 H (0.52-1.04) mg/dL Glucose 421 H (74-99) mg/dL POC Glucose (mg/dL) (75-99) mg/dL Hemoglobin A1c (0.0-6.0) % Plasma Lactic Acid Roddy (0.7-2.0) mmol/L Phosphorus (2.5-4.5) mg/dL AST 100 H (14-36) U/L Alkaline Phosphatase 138 H (38-126) U/L CK-MB (CK-2) (0.0-2.4) ng/mL Troponin I 0.060 H* (0.000-0.034) ng/mL C-Reactive Protein (<1.0) mg/dL Total Protein (6.3-8.2) g/dL Albumin (3.5-5.0) g/dL Urine Protein (Negative) Urine Glucose (UA) (Negative) Urine Ketones (Negative) Urine Blood (Negative) Urine Bilirubin (Negative) Urine Mucus (None) /hpf Urine Opiates Screen (NotDetected) 12/25/21 12/25/21 12/25/21 Range/Units 15:15 15:17 16:48 WBC (3.8-10.6) k/uL RBC (3.80-5.40) m/uL Hgb (11.4-16.0) gm/dL Hct (34.0-46.0) % Neutrophils # (1.3-7.7) k/uL Lymphocytes # (1.0-4.8) k/uL PT (9.0-12.0) sec INR (<1.2) ABG pO2 57 L* (83-108) mmHg ABG HCO3 20 L (21-25) mmol/L ABG O2 Saturation 89.7 L (94-97) % Sodium (137-145) mmol/L Potassium (3.5-5.1) mmol/L Chloride (98-107) mmol/L Carbon Dioxide (22-30) mmol/L BUN (7-17) mg/dL Creatinine (0.52-1.04) mg/dL Glucose (74-99) mg/dL POC Glucose (mg/dL) 433 H (75-99) mg/dL Hemoglobin A1c (0.0-6.0) % Plasma Lactic Acid Roddy 3.8 H* (0.7-2.0) mmol/L Phosphorus (2.5-4.5) mg/dL AST (14-36) U/L Alkaline Phosphatase (38-126) U/L CK-MB (CK-2) (0.0-2.4) ng/mL Troponin I (0.000-0.034) ng/mL C-Reactive Protein (<1.0) mg/dL Total Protein (6.3-8.2) g/dL Albumin (3.5-5.0) g/dL Urine Protein (Negative) Urine Glucose (UA) (Negative) Urine Ketones (Negative) Urine Blood (Negative) Urine Bilirubin (Negative) Urine Mucus (None) /hpf Urine Opiates Screen (NotDetected) 12/25/21 12/25/21 12/25/21 Range/Units 17:24 17:44 18:18 WBC (3.8-10.6) k/uL RBC (3.80-5.40) m/uL Hgb (11.4-16.0) gm/dL Hct (34.0-46.0) % Neutrophils # (1.3-7.7) k/uL Lymphocytes # (1.0-4.8) k/uL PT 15.4 H (9.0-12.0) sec INR 1.5 H (<1.2) ABG pO2 (83-108) mmHg ABG HCO3 (21-25) mmol/L ABG O2 Saturation (94-97) % Sodium (137-145) mmol/L Potassium (3.5-5.1) mmol/L Chloride (98-107) mmol/L Carbon Dioxide (22-30) mmol/L BUN (7-17) mg/dL Creatinine (0.52-1.04) mg/dL Glucose (74-99) mg/dL POC Glucose (mg/dL) 356 H (75-99) mg/dL Hemoglobin A1c 8.1 H (0.0-6.0) % Plasma Lactic Acid Roddy (0.7-2.0) mmol/L Phosphorus (2.5-4.5) mg/dL AST (14-36) U/L Alkaline Phosphatase (38-126) U/L CK-MB (CK-2) (0.0-2.4) ng/mL Troponin I (0.000-0.034) ng/mL C-Reactive Protein (<1.0) mg/dL Total Protein (6.3-8.2) g/dL Albumin (3.5-5.0) g/dL Urine Protein (Negative) Urine Glucose (UA) (Negative) Urine Ketones (Negative) Urine Blood (Negative) Urine Bilirubin (Negative) Urine Mucus (None) /hpf Urine Opiates Screen (NotDetected) 12/25/21 12/25/21 12/25/21 Range/Units 18:40 18:40 18:49 WBC (3.8-10.6) k/uL RBC (3.80-5.40) m/uL Hgb (11.4-16.0) gm/dL Hct (34.0-46.0) % Neutrophils # (1.3-7.7) k/uL Lymphocytes # (1.0-4.8) k/uL PT (9.0-12.0) sec INR (<1.2) ABG pO2 (83-108) mmHg ABG HCO3 (21-25) mmol/L ABG O2 Saturation (94-97) % Sodium (137-145) mmol/L Potassium (3.5-5.1) mmol/L Chloride (98-107) mmol/L Carbon Dioxide (22-30) mmol/L BUN (7-17) mg/dL Creatinine (0.52-1.04) mg/dL Glucose (74-99) mg/dL POC Glucose (mg/dL) 339 H (75-99) mg/dL Hemoglobin A1c (0.0-6.0) % Plasma Lactic Acid Roddy 4.1 H* (0.7-2.0) mmol/L Phosphorus (2.5-4.5) mg/dL AST (14-36) U/L Alkaline Phosphatase (38-126) U/L CK-MB (CK-2) 7.0 H (0.0-2.4) ng/mL Troponin I (0.000-0.034) ng/mL C-Reactive Protein (<1.0) mg/dL Total Protein (6.3-8.2) g/dL Albumin (3.5-5.0) g/dL Urine Protein (Negative) Urine Glucose (UA) (Negative) Urine Ketones (Negative) Urine Blood (Negative) Urine Bilirubin (Negative) Urine Mucus (None) /hpf Urine Opiates Screen (NotDetected) 12/25/21 12/25/21 12/25/21 Range/Units 20:06 20:56 20:56 WBC (3.8-10.6) k/uL RBC (3.80-5.40) m/uL Hgb (11.4-16.0) gm/dL Hct (34.0-46.0) % Neutrophils # (1.3-7.7) k/uL Lymphocytes # (1.0-4.8) k/uL PT (9.0-12.0) sec INR (<1.2) ABG pO2 (83-108) mmHg ABG HCO3 (21-25) mmol/L ABG O2 Saturation (94-97) % Sodium 136 L (137-145) mmol/L Potassium 3.0 L (3.5-5.1) mmol/L Chloride (98-107) mmol/L Carbon Dioxide 21 L (22-30) mmol/L BUN 26 H (7-17) mg/dL Creatinine 1.46 H (0.52-1.04) mg/dL Glucose 207 H (74-99) mg/dL POC Glucose (mg/dL) 272 H (75-99) mg/dL Hemoglobin A1c (0.0-6.0) % Plasma Lactic Acid Roddy (0.7-2.0) mmol/L Phosphorus <0.5 L* (2.5-4.5) mg/dL AST (14-36) U/L Alkaline Phosphatase (38-126) U/L CK-MB (CK-2) (0.0-2.4) ng/mL Troponin I 0.072 H* (0.000-0.034) ng/mL C-Reactive Protein 2.0 H (<1.0) mg/dL Total Protein (6.3-8.2) g/dL Albumin (3.5-5.0) g/dL Urine Protein (Negative) Urine Glucose (UA) (Negative) Urine Ketones (Negative) Urine Blood (Negative) Urine Bilirubin (Negative) Urine Mucus (None) /hpf Urine Opiates Screen (NotDetected) 12/25/21 12/25/21 12/25/21 Range/Units 21:25 21:59 21:59 WBC (3.8-10.6) k/uL RBC (3.80-5.40) m/uL Hgb (11.4-16.0) gm/dL Hct (34.0-46.0) % Neutrophils # (1.3-7.7) k/uL Lymphocytes # (1.0-4.8) k/uL PT (9.0-12.0) sec INR (<1.2) ABG pO2 (83-108) mmHg ABG HCO3 (21-25) mmol/L ABG O2 Saturation (94-97) % Sodium (137-145) mmol/L Potassium (3.5-5.1) mmol/L Chloride (98-107) mmol/L Carbon Dioxide (22-30) mmol/L BUN (7-17) mg/dL Creatinine (0.52-1.04) mg/dL Glucose (74-99) mg/dL POC Glucose (mg/dL) 232 H (75-99) mg/dL Hemoglobin A1c (0.0-6.0) % Plasma Lactic Acid Roddy 4.4 H* (0.7-2.0) mmol/L Phosphorus (2.5-4.5) mg/dL AST (14-36) U/L Alkaline Phosphatase (38-126) U/L CK-MB (CK-2) (0.0-2.4) ng/mL Troponin I 0.082 H* (0.000-0.034) ng/mL C-Reactive Protein (<1.0) mg/dL Total Protein (6.3-8.2) g/dL Albumin (3.5-5.0) g/dL Urine Protein (Negative) Urine Glucose (UA) (Negative) Urine Ketones (Negative) Urine Blood (Negative) Urine Bilirubin (Negative) Urine Mucus (None) /hpf Urine Opiates Screen (NotDetected) 12/25/21 12/25/21 12/26/21 Range/Units 22:35 23:28 00:39 WBC (3.8-10.6) k/uL RBC (3.80-5.40) m/uL Hgb (11.4-16.0) gm/dL Hct (34.0-46.0) % Neutrophils # (1.3-7.7) k/uL Lymphocytes # (1.0-4.8) k/uL PT (9.0-12.0) sec INR (<1.2) ABG pO2 (83-108) mmHg ABG HCO3 (21-25) mmol/L ABG O2 Saturation (94-97) % Sodium (137-145) mmol/L Potassium 2.4 L* (3.5-5.1) mmol/L Chloride (98-107) mmol/L Carbon Dioxide (22-30) mmol/L BUN 28 H (7-17) mg/dL Creatinine 1.42 H (0.52-1.04) mg/dL Glucose 221 H (74-99) mg/dL POC Glucose (mg/dL) 256 H 190 H (75-99) mg/dL Hemoglobin A1c (0.0-6.0) % Plasma Lactic Acid Roddy (0.7-2.0) mmol/L Phosphorus 0.8 L* (2.5-4.5) mg/dL AST 75 H (14-36) U/L Alkaline Phosphatase (38-126) U/L CK-MB (CK-2) (0.0-2.4) ng/mL Troponin I (0.000-0.034) ng/mL C-Reactive Protein (<1.0) mg/dL Total Protein 5.9 L (6.3-8.2) g/dL Albumin 3.4 L (3.5-5.0) g/dL Urine Protein (Negative) Urine Glucose (UA) (Negative) Urine Ketones (Negative) Urine Blood (Negative) Urine Bilirubin (Negative) Urine Mucus (None) /hpf Urine Opiates Screen (NotDetected) 12/26/21 12/26/21 12/26/21 Range/Units 00:39 00:40 01:11 WBC (3.8-10.6) k/uL RBC (3.80-5.40) m/uL Hgb (11.4-16.0) gm/dL Hct (34.0-46.0) % Neutrophils # (1.3-7.7) k/uL Lymphocytes # (1.0-4.8) k/uL PT (9.0-12.0) sec INR (<1.2) ABG pO2 (83-108) mmHg ABG HCO3 (21-25) mmol/L ABG O2 Saturation (94-97) % Sodium (137-145) mmol/L Potassium (3.5-5.1) mmol/L Chloride (98-107) mmol/L Carbon Dioxide (22-30) mmol/L BUN (7-17) mg/dL Creatinine (0.52-1.04) mg/dL Glucose (74-99) mg/dL POC Glucose (mg/dL) 230 H (75-99) mg/dL Hemoglobin A1c (0.0-6.0) % Plasma Lactic Acid Roddy 3.1 H* (0.7-2.0) mmol/L Phosphorus (2.5-4.5) mg/dL AST (14-36) U/L Alkaline Phosphatase (38-126) U/L CK-MB (CK-2) (0.0-2.4) ng/mL Troponin I 0.107 H* (0.000-0.034) ng/mL C-Reactive Protein (<1.0) mg/dL Total Protein (6.3-8.2) g/dL Albumin (3.5-5.0) g/dL Urine Protein (Negative) Urine Glucose (UA) (Negative) Urine Ketones (Negative) Urine Blood (Negative) Urine Bilirubin (Negative) Urine Mucus (None) /hpf Urine Opiates Screen (NotDetected) 12/26/21 12/26/21 12/26/21 Range/Units 01:35 02:29 03:35 WBC (3.8-10.6) k/uL RBC (3.80-5.40) m/uL Hgb (11.4-16.0) gm/dL Hct (34.0-46.0) % Neutrophils # (1.3-7.7) k/uL Lymphocytes # (1.0-4.8) k/uL PT (9.0-12.0) sec INR (<1.2) ABG pO2 (83-108) mmHg ABG HCO3 (21-25) mmol/L ABG O2 Saturation (94-97) % Sodium (137-145) mmol/L Potassium (3.5-5.1) mmol/L Chloride (98-107) mmol/L Carbon Dioxide (22-30) mmol/L BUN (7-17) mg/dL Creatinine (0.52-1.04) mg/dL Glucose (74-99) mg/dL POC Glucose (mg/dL) 236 H 177 H 209 H (75-99) mg/dL Hemoglobin A1c (0.0-6.0) % Plasma Lactic Acid Roddy (0.7-2.0) mmol/L Phosphorus (2.5-4.5) mg/dL AST (14-36) U/L Alkaline Phosphatase (38-126) U/L CK-MB (CK-2) (0.0-2.4) ng/mL Troponin I (0.000-0.034) ng/mL C-Reactive Protein (<1.0) mg/dL Total Protein (6.3-8.2) g/dL Albumin (3.5-5.0) g/dL Urine Protein (Negative) Urine Glucose (UA) (Negative) Urine Ketones (Negative) Urine Blood (Negative) Urine Bilirubin (Negative) Urine Mucus (None) /hpf Urine Opiates Screen (NotDetected) 12/26/21 12/26/21 12/26/21 Range/Units 04:32 04:57 04:57 WBC (3.8-10.6) k/uL RBC (3.80-5.40) m/uL Hgb (11.4-16.0) gm/dL Hct (34.0-46.0) % Neutrophils # (1.3-7.7) k/uL Lymphocytes # (1.0-4.8) k/uL PT (9.0-12.0) sec INR (<1.2) ABG pO2 (83-108) mmHg ABG HCO3 (21-25) mmol/L ABG O2 Saturation (94-97) % Sodium (137-145) mmol/L Potassium 2.9 L (3.5-5.1) mmol/L Chloride (98-107) mmol/L Carbon Dioxide (22-30) mmol/L BUN 29 H (7-17) mg/dL Creatinine 1.44 H (0.52-1.04) mg/dL Glucose 238 H (74-99) mg/dL POC Glucose (mg/dL) 213 H (75-99) mg/dL Hemoglobin A1c (0.0-6.0) % Plasma Lactic Acid Roddy (0.7-2.0) mmol/L Phosphorus (2.5-4.5) mg/dL AST 81 H (14-36) U/L Alkaline Phosphatase (38-126) U/L CK-MB (CK-2) (0.0-2.4) ng/mL Troponin I 0.105 H* (0.000-0.034) ng/mL C-Reactive Protein 1.6 H (<1.0) mg/dL Total Protein 5.5 L (6.3-8.2) g/dL Albumin 3.2 L (3.5-5.0) g/dL Urine Protein (Negative) Urine Glucose (UA) (Negative) Urine Ketones (Negative) Urine Blood (Negative) Urine Bilirubin (Negative) Urine Mucus (None) /hpf Urine Opiates Screen (NotDetected) 12/26/21 12/26/21 12/26/21 Range/Units 04:57 04:57 06:52 WBC (3.8-10.6) k/uL RBC (3.80-5.40) m/uL Hgb (11.4-16.0) gm/dL Hct (34.0-46.0) % Neutrophils # (1.3-7.7) k/uL Lymphocytes # (1.0-4.8) k/uL PT (9.0-12.0) sec INR (<1.2) ABG pO2 (83-108) mmHg ABG HCO3 (21-25) mmol/L ABG O2 Saturation (94-97) % Sodium (137-145) mmol/L Potassium (3.5-5.1) mmol/L Chloride (98-107) mmol/L Carbon Dioxide (22-30) mmol/L BUN (7-17) mg/dL Creatinine (0.52-1.04) mg/dL Glucose (74-99) mg/dL POC Glucose (mg/dL) 293 H (75-99) mg/dL Hemoglobin A1c (0.0-6.0) % Plasma Lactic Acid Roddy 2.8 H* (0.7-2.0) mmol/L Phosphorus 1.4 L (2.5-4.5) mg/dL AST (14-36) U/L Alkaline Phosphatase (38-126) U/L CK-MB (CK-2) (0.0-2.4) ng/mL Troponin I (0.000-0.034) ng/mL C-Reactive Protein (<1.0) mg/dL Total Protein (6.3-8.2) g/dL Albumin (3.5-5.0) g/dL Urine Protein (Negative) Urine Glucose (UA) (Negative) Urine Ketones (Negative) Urine Blood (Negative) Urine Bilirubin (Negative) Urine Mucus (None) /hpf Urine Opiates Screen (NotDetected) 12/26/21 Range/Units 11:40 WBC (3.8-10.6) k/uL RBC (3.80-5.40) m/uL Hgb (11.4-16.0) gm/dL Hct (34.0-46.0) % Neutrophils # (1.3-7.7) k/uL Lymphocytes # (1.0-4.8) k/uL PT (9.0-12.0) sec INR (<1.2) ABG pO2 (83-108) mmHg ABG HCO3 (21-25) mmol/L ABG O2 Saturation (94-97) % Sodium (137-145) mmol/L Potassium (3.5-5.1) mmol/L Chloride (98-107) mmol/L Carbon Dioxide (22-30) mmol/L BUN (7-17) mg/dL Creatinine (0.52-1.04) mg/dL Glucose (74-99) mg/dL POC Glucose (mg/dL) 313 H (75-99) mg/dL Hemoglobin A1c (0.0-6.0) % Plasma Lactic Acid Roddy (0.7-2.0) mmol/L Phosphorus (2.5-4.5) mg/dL AST (14-36) U/L Alkaline Phosphatase (38-126) U/L CK-MB (CK-2) (0.0-2.4) ng/mL Troponin I (0.000-0.034) ng/mL C-Reactive Protein (<1.0) mg/dL Total Protein (6.3-8.2) g/dL Albumin (3.5-5.0) g/dL Urine Protein (Negative) Urine Glucose (UA) (Negative) Urine Ketones (Negative) Urine Blood (Negative) Urine Bilirubin (Negative) Urine Mucus (None) /hpf Urine Opiates Screen (NotDetected) Microbiology - Last 24 Hours (Table) 12/25/21 19:50 Urine Culture - Preliminary Urine,Catheterized
[2021-12-26] MEDS: busPIRone HCl 10 MG TAB PO SCH ×2 (13:35→21:23)
[2021-12-26] MEDS: MORPHINE SULFATE ER 60 MG TABLET PO SCH ×2 (13:35→21:24)
[2021-12-26] MEDS: POTAS-SOD-PHOS 278-164-250 MG 1 EACH PACKET PO SCH ×3 (13:39→21:29)
[2021-12-26] MEDS: SERTRALINE 100 MG TAB PO SCH ×2 (13:39→21:24)
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
[2021-12-26 16:38] LABS: Hepatitis A Antibody IgM Nonreactive (Nonreactive); Hepatitis B Core IgM Nonreactive (Nonreactive); Hepatitis B Surface Antigen Nonreactive (Nonreactive); Hepatitis C IgG Antibody Nonreactive (Nonreactive)
[2021-12-26 16:41] LABS: Glucose,Whole Blood 367 mg/dL (70-110)
[2021-12-26 16:50] VITALS: BMI 43.1
[2021-12-26] MEDS: metroNIDAZOLE-NS PMX 500 MG in SALINE 1 100ML.BAG IVPB SCH ×2 (17:14→22:34)
[2021-12-26 19:01] LABS: Potassium 3.2 mmol/L (3.5-5.1)
[2021-12-26 20:17] LABS: Glucose,Whole Blood 305 mg/dL (70-110)
[2021-12-26] MEDS: INSULIN DETEMIR (LEVEMIR) 100 UNIT/ML SYR SQ SCH (21:23)
[2021-12-26] MEDS: METOCLOPRAMIDE 10 MG TAB PO SCH (21:23)
[2021-12-26] MEDS: LORATADINE 10 MG TAB PO SCH (21:23)
[2021-12-26] MEDS: PANTOPRAZOLE 40 MG TABLET PO SCH (21:24)
[2021-12-26] MEDS: NYSTATIN 100,000 UNIT/GM POWD 15 GM TOPICAL SCH (21:29)
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
[2021-12-27 00:58] LABS: Albumin 2.9 g/dL (3.5-5.0); Calcium 8.1 mg/dL (8.4-10.2); Phosphorus 1.7 mg/dL (2.5-4.5); Potassium 3.7 mmol/L (3.5-5.1); Total Bilirubin 0.6 mg/dL (0.2-1.3); Total Protein 5.2 g/dL (6.3-8.2)
[2021-12-27] MEDS: SODIUM PHOSPHATE 10 MMOL in SODIUM CHLORIDE 0.9% 250 ML IVPB SCH ×2 (01:38→04:32)
[2021-12-27] MEDS ORDERED: POTASSIUM CHLORIDE ER 20 MEQ TAB.ER PO SCH (02:00)
[2021-12-27] MEDS: LEVOTHYROXINE 100 MCG TAB PO SCH (05:37)
[2021-12-27 05:57] LABS: Glucose,Whole Blood 283 mg/dL (70-110)
[2021-12-27] MEDS: OXYBUTYNIN 15 MG TAB.ER.24 PO SCH ×2 (05:58→18:01)
[2021-12-27] MEDS: DOCUSATE 100 MG CAP PO SCH (05:58)
[2021-12-27] MEDS: INSULIN ASPART (NovoLOG) 100 UNIT/ML VIAL SQ SCH ×3 (06:11→18:06)
[2021-12-27] MEDS: ALBUTEROL NEBULIZED 2.5 MG/3 ML INHALATION PRN (08:13)
--- NOTE | 2021-12-27 08:21 | XR ---
EXAMINATION TYPE: XR chest 1V portable DATE OF EXAM: 12/27/2021 Comparison: 12/25/2021 Clinical History: 56 year-old female shortness of breath, dyspnea Findings: Portable exam further limited by large body habitus. Heart borderline enlarged. Prominence to the vas cular markings possibly due to magnification from large body habitus. No chang consolidation or pleur al effusion. Impression: Portable exam further limited by large body habitus. There is borderline heart size. No definite acut e process.
[2021-12-27] MEDS: Dextroamphetamine/Amphetamine [Adderall] PO SCH ×2 (08:40→20:16)
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
[2021-12-27] MEDS: HEPARIN SODIUM,PORCINE/PF 5,000 UNIT/0.5 ML SYRINGE SQ SCH ×3 (10:01→23:16)
[2021-12-27] MEDS: tiZANidine 4 MG TAB PO SCH ×2 (10:01→20:20)
[2021-12-27] MEDS: TOPIRAMATE 100 MG TAB PO SCH ×2 (10:01→20:20)
[2021-12-27] MEDS: busPIRone HCl 10 MG TAB PO SCH ×2 (10:02→20:20)
[2021-12-27] MEDS: SERTRALINE 100 MG TAB PO SCH ×2 (10:02→20:20)
[2021-12-27] MEDS: metroNIDAZOLE-NS PMX 500 MG in SALINE 1 100ML.BAG IVPB SCH ×3 (10:02→23:16)
[2021-12-27] MEDS: oxyCODONE-APAP 10-325MG 1 EACH TAB PO PRN (10:03)
[2021-12-27] MEDS: NYSTATIN 100,000 UNIT/GM POWD 15 GM TOPICAL SCH ×2 (10:03→20:20)
[2021-12-27 10:05] LABS: Calcium 7.9 mg/dL (8.4-10.2); Magnesium 1.6 mg/dL (1.6-2.3); Potassium 3.1 mmol/L (3.5-5.1); Total Bilirubin 0.6 mg/dL (0.2-1.3); Total Protein 5.2 g/dL (6.3-8.2)
[2021-12-27 10:08] LABS: Basophils % (A) 0 %; Eosinophils % (A) 0 %; Lymphocytes # (A) 1.5 k/uL (1.0-4.8); Lymphocytes % (A) 10 %; MCH 29.6 pg (25.0-35.0); MCHC 31.6 g/dL (31.0-37.0); MCV 93.6 fL (80.0-100.0); Mean Platelet Volume 9.6; Monocytes % (A) 6 %; Neutrophils # (A) 12.5 k/uL (1.3-7.7); Neutrophils % (A) 82 %; Platelet Count 116 k/uL (150-450); RDW 15.1 % (11.5-15.5); WBC 15.1 k/uL (3.8-10.6)
[2021-12-27 10:15] LABS: HGB 14.2 gm/dL (11.4-16.0)
--- NOTE | 2021-12-27 10:17 | P.PN ---
Subjective Patient is seen for follow-up for acute kidney injury. Patient was on NSAIDs prior to admission. There is possible component of urine retention as well. Currently patient has an indwelling Martin catheter. Serum creatinine has improved from 1.6 to 1.0 mg/dL. Blood pressure had been low and patient was maintained on IV fluids. 24-hour urine output at about 900 mL. No significant complaints today Objective - Vital Signs Vital signs: Vital Signs Temp 98.2 F 12/27/21 07:56 Pulse 111 H 12/27/21 08:26 Resp 18 12/27/21 07:56 BP 132/78 12/27/21 07:56 Pulse Ox 96 12/27/21 07:56 FiO2 Intake & Output 12/26/21 12/27/21 12/27/21 18:59 06:59 18:59 Intake Total 222 Output Total 550 350 400 Balance -550 -128 -400 Weight 125 kg Intake: Oral 222 Output: Urine 550 350 400 Other: Voiding Method Indwelling Catheter Indwelling Catheter - Exam Patient is awake, comfortable, not in any acute distress Examination of the heart S1 and S2 Examination of the lungs bilateral breath sounds are heard Abdomen is soft nontender obese Examination lower extremity shows edema 1+ bilaterally [facility] exam grossly intact - Labs CBC & Chem 7: 12/25/21 14:57 12/27/21 09:26 Labs: Abnormal Lab Results - Last 24 Hours (Table) 12/26/21 12/26/21 12/26/21 Range/Units 11:40 16:39 18:32 Sodium 135 L (137-145) mmol/L Potassium 3.2 L (3.5-5.1) mmol/L Carbon Dioxide 18 L (22-30) mmol/L BUN 24 H (7-17) mg/dL Creatinine 1.14 H (0.52-1.04) mg/dL Glucose 305 H (74-99) mg/dL POC Glucose (mg/dL) 313 H 367 H (70-110) mg/dL Calcium 7.0 L (8.4-10.2) mg/dL Phosphorus (2.5-4.5) mg/dL AST (14-36) U/L Total Protein (6.3-8.2) g/dL Albumin (3.5-5.0) g/dL 12/26/21 12/27/21 12/27/21 Range/Units 20:16 00:07 05:49 Sodium 134 L (137-145) mmol/L Potassium (3.5-5.1) mmol/L Carbon Dioxide (22-30) mmol/L BUN 25 H (7-17) mg/dL Creatinine 1.18 H (0.52-1.04) mg/dL Glucose 317 H (74-99) mg/dL POC Glucose (mg/dL) 305 H 283 H (70-110) mg/dL Calcium 8.1 L (8.4-10.2) mg/dL Phosphorus 1.7 L (2.5-4.5) mg/dL AST 62 H (14-36) U/L Total Protein 5.2 L (6.3-8.2) g/dL Albumin 2.9 L (3.5-5.0) g/dL 12/27/21 Range/Units 09:26 Sodium 135 L (137-145) mmol/L Potassium 3.1 L (3.5-5.1) mmol/L Carbon Dioxide (22-30) mmol/L BUN 22 H (7-17) mg/dL Creatinine (0.52-1.04) mg/dL Glucose 244 H (74-99) mg/dL POC Glucose (mg/dL) (70-110) mg/dL Calcium 7.9 L (8.4-10.2) mg/dL Phosphorus (2.5-4.5) mg/dL AST 54 H (14-36) U/L Total Protein 5.2 L (6.3-8.2) g/dL Albumin 3.0 L (3.5-5.0) g/dL Microbiology - Last 24 Hours (Table) 12/25/21 15:15 Blood Culture - Preliminary Blood No Growth after 24 hours 12/25/21 14:57 Blood Culture - Preliminary Blood No Growth after 24 hours Assessment and Plan Assessment: 1. Acute kidney injury, ATN nonoliguric secondary to low blood pressure. Patient was also maintained on nonsteroidal anti-inflammatory agents prior to admission. She may have had a component of urine retention as well as 900 mL of urine as documented. I'm not sure this was obtained on initial Martin catheter p lacement. UA shows 2+ protein and large blood. Renal function significantly improved. Currently maintained on IV fluids. Diuretics and NSAIDs currently on hold 2. Hypokalemia associated with use of diuretics prior to admission currently being replaced magnesium 1.9 3. Lactic acidosis currently improving 4. Diabetic ketoacidosis status post insulin drip 5. Chronic kidney disease NKF stage II with previous creatinine 0.9 in 2017 but UA has shown proteinuria. Etiology is diabetic kidney disease 6. Elevated troponin being followed by cardiology. No evidence of acute MN Plan: Decrease IV fluids Continue to Replace potassium and phosphorus Encourage increased oral intake.
[2021-12-27 11:36] LABS: Glucose,Whole Blood 217 mg/dL (70-110)
[2021-12-27] MEDS: MORPHINE SULFATE ER 60 MG TABLET PO SCH ×2 (11:40→20:20)
[2021-12-27] MEDS ORDERED: Potassium Replacement Protocol 1 EACH MISC MISCELLANE PRN (11:41)
[2021-12-27] MEDS: POTAS-SOD-PHOS 278-164-250 MG 1 EACH PACKET PO SCH ×3 (11:47→20:21)
--- NOTE | 2021-12-27 11:54 | CDI ---
Documentation Clarification Form Date: From: Mckenna Melgar RN, CCDS Admit Date: 12/25/2021 04:33:00 PM Patient Name: Carolina Cedillo Visit Number: [id number] Discharge Date: ATTENTION: The Clinical Documentation Specialists (CDI) and [facility] Coding Staff appreciate your assistance in clarifying documentation. Please respond to the clarification below the line at the bottom and electronically sign. The CDI & [facility] Coding staff will review the response and follow-up if needed. Please note: Queries are made part of the Legal Health Record. If you have any questions, please contact the author of this message via ITS. Dr. Viktoria Candelario Insulin-dependent type 2 diabetes mellitus with uncontrolled hyperglycemia is documented in the H/P and subsequent progress notes. On admission she had positive acetone. Additional specificity regarding the diabetes diagnosis is requested. 12/26 Cardiology consult: Elevated troponin secondary to diabetic ketoacidosis and renal insufficiency History/Risk Factors: Diabetes Mellitus, Heart Failure Clinical Indicators: 56-year-old female present to ED with severe fatigue, altered mental status and hyperglycemia. 12/25 VS: 123/80 131 20 100.9 12/25 Labs: Acetone, Positive; Glucose 421, 456 12/25 Labs WBC 13.4, K+ 2.8 Bun 27, CR 1.61, Lactic acid 3.8, 4.1, 4.4, Troponin I 0.060, 0.082; UA: Glucose 4+, Ketones 3+ Treatment Cardiac/Telemetry monitoring Insulin Drip per orders w blood sugar monitoring, change to Novolog 12 Units SQ AC-TID 12/26 Levemir 37 units SQ Q HS .9NS bolus 1000 mls x3 .9NS @130 MLS/HR IV Please further clarify DM Type II with uncontrolled hyperglycemia with: [X ] Diabetes Type 2 with uncontrolled hyperglycemia and diabetic ketoacidosis [ ] Other, please specify [ ] Unable to Determine (Template Last Revised: September 2020) MTDD
--- NOTE | 2021-12-27 11:57 | P.PN ---
Subjective Progress Note Date: 12/27/21 Patient has a known history of hypertension dyslipidemia diabetes and morbid obesity presented to the hospital with mental status change and had an abnormal EKG raising the possibility of an anterior wall myocardial infarction. Patient did not have any chest pain shortness of breath and was not in heart failure. Her EKG showed sinus rhythm with left axis deviation and poor R wave progression and some ST segment elevations from V1 to V4. EKG changes were new when compared to old EKG from several years ago. An echocardiogram on this admission did not reveal any LV systolic dysfunction or wall motion abnormalities. Her mild troponin elevation probably related to her diabetic ketoacidosis. She is examined today resting comfortably in bed. She denies chest pain or shortness of breath. Her heart rate is elevated in the low 100s will start Toprol-XL 25 mg daily. Recommended patient undergo further workup outpatient. Objective - Vital Signs Vital signs: Vital Signs Temp 98.3 F 12/27/21 11:39 Pulse 104 H 12/27/21 11:39 Resp 16 12/27/21 11:39 BP 124/75 12/27/21 11:39 Pulse Ox 97 12/27/21 11:39 FiO2 Intake & Output 12/26/21 12/27/21 12/27/21 18:59 06:59 18:59 Intake Total 222 Output Total 550 350 400 Balance -550 -128 -400 Weight 125 kg Intake: Oral 222 Output: Urine 550 350 400 Other: Voiding Method Indwelling Catheter Indwelling Catheter - Exam PHYSICAL EXAM: VITAL SIGNS: Reviewed. GENERAL: Well-developed in no acute distress. HEENT: Head is normocephalic. Pupils are equal, round. Sclerae anicteric. Mucous membranes of the mouth are moist. NECK: Supple. No JVD or thyromegaly RESPIRATORY: Respirations even and unlabored. Lungs diminished to auscultation bilaterally. CARDIO: Regular rate and rhythm. S1 and S2 heard. No murmur or gallops. EXTREMITIES: Normal range of motion. No clubbing or cyanosis. Peripheral pulses intact. Negative for bilateral lower extremity edema NEURO: Orientated to person, time, mood is appropriate - Labs CBC & Chem 7: 12/27/21 09:26 12/27/21 09:26 Labs: Abnormal Lab Results - Last 24 Hours (Table) 12/26/21 12/26/21 12/26/21 Range/Units 16:39 18:32 20:16 WBC (3.8-10.6) k/uL Plt Count (150-450) k/uL Neutrophils # (1.3-7.7) k/uL Sodium 135 L (137-145) mmol/L Potassium 3.2 L (3.5-5.1) mmol/L Carbon Dioxide 18 L (22-30) mmol/L BUN 24 H (7-17) mg/dL Creatinine 1.14 H (0.52-1.04) mg/dL Glucose 305 H (74-99) mg/dL POC Glucose (mg/dL) 367 H 305 H (70-110) mg/dL Calcium 7.0 L (8.4-10.2) mg/dL Phosphorus (2.5-4.5) mg/dL AST (14-36) U/L Total Protein (6.3-8.2) g/dL Albumin (3.5-5.0) g/dL 12/27/21 12/27/21 12/27/21 Range/Units 00:07 05:49 09:26 WBC 15.1 H (3.8-10.6) k/uL Plt Count 116 L (150-450) k/uL Neutrophils # 12.5 H (1.3-7.7) k/uL Sodium 134 L (137-145) mmol/L Potassium (3.5-5.1) mmol/L Carbon Dioxide (22-30) mmol/L BUN 25 H (7-17) mg/dL Creatinine 1.18 H (0.52-1.04) mg/dL Glucose 317 H (74-99) mg/dL POC Glucose (mg/dL) 283 H (70-110) mg/dL Calcium 8.1 L (8.4-10.2) mg/dL Phosphorus 1.7 L (2.5-4.5) mg/dL AST 62 H (14-36) U/L Total Protein 5.2 L (6.3-8.2) g/dL Albumin 2.9 L (3.5-5.0) g/dL 12/27/21 12/27/21 Range/Units 09:26 11:34 WBC (3.8-10.6) k/uL Plt Count (150-450) k/uL Neutrophils # (1.3-7.7) k/uL Sodium 135 L (137-145) mmol/L Potassium 3.1 L (3.5-5.1) mmol/L Carbon Dioxide (22-30) mmol/L BUN 22 H (7-17) mg/dL Creatinine (0.52-1.04) mg/dL Glucose 244 H (74-99) mg/dL POC Glucose (mg/dL) 217 H (70-110) mg/dL Calcium 7.9 L (8.4-10.2) mg/dL Phosphorus (2.5-4.5) mg/dL AST 54 H (14-36) U/L Total Protein 5.2 L (6.3-8.2) g/dL Albumin 3.0 L (3.5-5.0) g/dL Microbiology - Last 24 Hours (Table) 12/25/21 15:15 Blood Culture - Preliminary Blood No Growth after 24 hours 12/25/21 14:57 Blood Culture - Preliminary Blood No Growth after 24 hours Assessment and Plan Assessment: Elevated troponin secondary to diabetic ketoacidosis and renal insufficiency Acute coronary syndrome ruled out due to normal LV function without wall motion abnormalities Diabetic ketoacidosis Hypokalemia Plan: Echocardiogram ordered and reviewed Continue with all current cardiac medications Continue with telemetry monitoring Recommended further workup outpatient, Lexiscan after discharge Further recommendations based on clinical course The above impression and plan of care have been discussed and directed by the signing physician. Viridiana Peña, nurse practitioner, acting as scribe for signing physician.
[2021-12-27] MEDS: POTASSIUM CHLORIDE ER 20 MEQ TAB.ER PO SCH ×2 (12:30→17:59)
--- NOTE | 2021-12-27 12:45 | CDI ---
Documentation Clarification Form Date: 12/27/2021 11:55:39 AM From: Mckenna Melgar RN, CCDS Admit Date: 12/25/2021 04:33:00 PM Patient Name: Carolina Cedillo Visit Number: [id number] Discharge Date: ATTENTION: The Clinical Documentation Specialists (CDI) and [facility] Coding Staff appreciate your assistance in clarifying documentation. Please respond to the clarification below the line at the bottom and electronically sign. The CDI & [facility] Coding staff will review the response and follow-up if needed. Please note: Queries are made part of the Legal Health Record. If you have any questions, please contact the author of this message via ITS. Dr. Viktoria Candelario Conflicting documentation has been found in the medical record. As attending physician, please provide clarification. 12/25 H/P and subsequent progress notes: Type II and a STEMI 12/26 Cardiology consult: Elevated troponin secondary to diabetic ketoacidosis and renal insufficiency 12/27 Cardiology progress notes: She did not have any chest pain, shortness of breath and was not in heart failure. ECHO No LV systolic dysfunction or wall motion abnormalities. Her mild troponin elevation probably related to her diabetic ketoacidosis. Acute coronary syndrome ruled out due to normal LV function without wall motion abnormalities. History/Risk Factors: Diabetes Mellitus, Heart Failure Clinical Indicators: 56-year-old female present to ED with severe fatigue, altered mental status and hypergycemia 12/25 VS: 123/80 131 20 100.9 12/25 Labs WBC 13.4, K+ 2.8 Bun 27, CR 1.61, Lactic acid 3.8, 4.1, 4.4, Troponin I 0.060, 0.082; UA: Glucose 4+, Ketones 3+ 12/25 EKG: sinus tachycardia at 125 bpm. Patient has a very unique T-wave with some minimal elevation in leads V4 V5 and inferiorly 12/25 ECHO: Left ventricular EF is estimated at 65-70 % Treatment: Cardiac/Telemetry monitoring Insulin Drip per orders w blood sugar monitoring, change to Novolog 12 Units SQ AC-TID 12/26 Toprol-XL 25 MG Daily (12/27 cardiology notes not on med sheet) Levemir 37 units SQ Q HS .9NS @130 MLS/HR IV Lexican after discharge Please clarify which diagnosis is most appropriate: [ X ] Type II AK secondary diabetic ketoacidosis [ ] Other (please specify) [ ] Unable to determine (Template Last Revised: September 2020) MTDD
[2021-12-27] MEDS: SODIUM CHLORIDE 0.9% 1,000 ML IV SCH ×2 (14:37→14:41)
[2021-12-27 14:52] LABS: Protein, Total 5.2 g/dL (6.2-8.2)
[2021-12-27] MEDS ORDERED: POTASSIUM CHLORIDE ER 20 MEQ TAB.ER PO STA (15:02)
--- NOTE | 2021-12-27 15:09 | P.PN ---
Subjective History of Present Illness per H&P H&P Date: 12/25/21 56-year-old female with past medical history significant for insulin-dependent type 2 diabetes mellitus chronic pain syndrome secondary to chronic back pain and right hip pain, hypothyroidism. Patient is not a very good history secondary to altered mental status. She is alert oriented to herself. She appears very weak and fatigue and disheveled. RN and emergency room stated that EMS told her that her brother called EMS due to increased weakness and altered mental status. Patient is complaining of right ear pain. She denies any chest pain but she stated that she short of breath. Other than that unable to obtain a good review of system secondary to altered mental status. Interval history: Patient was and examined at the bedside. She is alert oriented 2. She is complaining of chronic buttock and hip pain. Patient denies any chest pain shortness of breath. Physical examination: General: Oriented 2. Obese. appears older than stated age Derm: warm, dry Head: atraumatic, normocephalic, symmetric Eyes: EOMI, no lid lag, anicteric sclera Mouth: Dry Cardiovascular: S1S2 reg, no murmur, positive posterior tibial pulse bilateral, Lungs: CTA bilateral, no rhonchi, no rales , no accessory muscle use Abdominal: soft, obese nontender to palpation, no guarding, no appreciable organomegaly. Abdominal fold candidiasis Ext: Chronic venous changes, no edema, no contractures Neuro: Unable to assess secondary to confusion Psych: Confused Assessment and plan: #Acute toxic metabolic encephalopathy -Stable -Unclear etiology could be secondary to Medications including narcotics, gabapentin and Atarax -Worsening mental status secondary to acute renal failure and dehydration -CT of the head without contrast ordered -Neuro decreased to topamax 100 mg twice daily -Holding Atarax and gabapentin -Lumbar puncture ordered #Insulin-dependent type 2 diabetes mellitus with Uncontrolled hyperglycemia -Patient currently on insulin drip -A1c 8.1 #Severe dehydration with hemoconcentration. -Resume IV fluids #Lactic acidosis -Computed tomography scan of chest, without contrast abdomen and pelvis unremarkable -Resume IV fluids. #Chronic pain syndrome -Patient on gabapentin and long-acting morphine and oxycodone for breakthrough pain -Holding long-acting morphine and gabapentin due to altered mental status and acute toxic metabolic encephalopathy #Fever of unknown origin #Leukocytosis -Discussed with neurologist lumbar puncture -Blood culture urine culture ordered -Negative influenza and COVID 19 -Patient on Rocephin and Flagyl per infectious disease recommendation #Severe hypokalemia -Replaced -Holding home dose Lasix #Type II and a STEMI secondary to above -2-D echo ordered and cardiology consultation was placed -Trend troponin #Hypothyroidism -TSH of resume Levothyroxine #Super Morbid obesity BMI 42 #Abdominal fold candidiasis -Nystatin powder #Severe debility and deconditioning -Consult PT/OT #Right buttock because ulcer -Present on admission -Consult wound care #DVT prophylaxis with subcutaneous heparin Objective - Vital Signs Vital signs: Vital Signs Temp 98.3 F 12/27/21 11:39 Pulse 104 H 12/27/21 11:39 Resp 16 12/27/21 11:39 BP 124/75 12/27/21 11:39 Pulse Ox 97 12/27/21 11:39 FiO2 Intake & Output 12/26/21 12/27/21 12/27/21 18:59 06:59 18:59 Intake Total 222 222 Output Total 550 350 400 Balance -550 -128 -178 Weight 125 kg Intake: Oral 222 222 Output: Urine 550 350 400 Other: Voiding Method Indwelling Catheter Indwelling Catheter Indwelling Catheter # Bowel Movements 1 - Labs CBC & Chem 7: 12/27/21 09:26 12/27/21 09:26 Labs: Abnormal Lab Results - Last 24 Hours (Table) 12/26/21 12/26/21 12/26/21 Range/Units 16:39 18:32 20:16 WBC (3.8-10.6) k/uL Plt Count (150-450) k/uL Neutrophils # (1.3-7.7) k/uL Sodium 135 L (137-145) mmol/L Potassium 3.2 L (3.5-5.1) mmol/L Carbon Dioxide 18 L (22-30) mmol/L BUN 24 H (7-17) mg/dL Creatinine 1.14 H (0.52-1.04) mg/dL Glucose 305 H (74-99) mg/dL POC Glucose (mg/dL) 367 H 305 H (70-110) mg/dL Calcium 7.0 L (8.4-10.2) mg/dL Phosphorus (2.5-4.5) mg/dL AST (14-36) U/L Total Protein (6.3-8.2) g/dL Total Protein (PEP) (6.2-8.2) g/dL Albumin (3.5-5.0) g/dL 12/27/21 12/27/21 12/27/21 Range/Units 00:07 05:49 09:26 WBC 15.1 H (3.8-10.6) k/uL Plt Count 116 L (150-450) k/uL Neutrophils # 12.5 H (1.3-7.7) k/uL Sodium 134 L (137-145) mmol/L Potassium (3.5-5.1) mmol/L Carbon Dioxide (22-30) mmol/L BUN 25 H (7-17) mg/dL Creatinine 1.18 H (0.52-1.04) mg/dL Glucose 317 H (74-99) mg/dL POC Glucose (mg/dL) 283 H (70-110) mg/dL Calcium 8.1 L (8.4-10.2) mg/dL Phosphorus 1.7 L (2.5-4.5) mg/dL AST 62 H (14-36) U/L Total Protein 5.2 L (6.3-8.2) g/dL Total Protein (PEP) (6.2-8.2) g/dL Albumin 2.9 L (3.5-5.0) g/dL 12/27/21 12/27/21 12/27/21 Range/Units 09:26 09:26 11:34 WBC (3.8-10.6) k/uL Plt Count (150-450) k/uL Neutrophils # (1.3-7.7) k/uL Sodium 135 L (137-145) mmol/L Potassium 3.1 L (3.5-5.1) mmol/L Carbon Dioxide (22-30) mmol/L BUN 22 H (7-17) mg/dL Creatinine (0.52-1.04) mg/dL Glucose 244 H (74-99) mg/dL POC Glucose (mg/dL) 217 H (70-110) mg/dL Calcium 7.9 L (8.4-10.2) mg/dL Phosphorus (2.5-4.5) mg/dL AST 54 H (14-36) U/L Total Protein 5.2 L (6.3-8.2) g/dL Total Protein (PEP) 5.2 L (6.2-8.2) g/dL Albumin 3.0 L (3.5-5.0) g/dL Microbiology - Last 24 Hours (Table) 12/25/21 19:50 Urine Culture - Final Urine,Catheterized 12/25/21 15:15 Blood Culture - Preliminary Blood No Growth after 24 hours 12/25/21 14:57 Blood Culture - Preliminary Blood No Growth after 24 hours
[2021-12-27 16:25] LABS: Glucose,Whole Blood 189 mg/dL (70-110)
[2021-12-27] MEDS: HYDROPHILIC CREAM 180 GM TUBE TOPICAL SCH (17:59)
[2021-12-27] MEDS: PANTOPRAZOLE 40 MG TABLET PO SCH (20:20)
[2021-12-27] MEDS: LORATADINE 10 MG TAB PO SCH (20:20)
[2021-12-27] MEDS: METOCLOPRAMIDE 10 MG TAB PO SCH (20:20)
[2021-12-27 20:49] LABS: Glucose,Whole Blood 239 mg/dL (70-110)
[2021-12-27] MEDS: INSULIN DETEMIR (LEVEMIR) 100 UNIT/ML SYR SQ SCH (20:53)
--- NOTE | 2021-12-27 22:08 | P.PN ---
Subjective Progress Note Date: 12/27/21 Principal diagnosis: Fever Patient is a 53 female presenting to the hospital for evaluation of weakness fatigue symptoms for about a week and did have low-grade fever of 1.9 on presentation hospital. Initial Workup including CT of abdominal pelvis has been negative. On today's evaluation that is 12/27/2021, the patient is afebrile the patient is more awake and alert today she is breathing comfortably on room air. Denies any headache no nausea no vomiting and abdominal pain no diarrhea Objective - Vital Signs Vital signs: Vital Signs Temp 98.3 F 12/27/21 11:39 Pulse 104 H 12/27/21 11:39 Resp 16 12/27/21 11:39 BP 124/75 12/27/21 11:39 Pulse Ox 97 12/27/21 11:39 FiO2 Intake & Output 12/26/21 12/27/21 12/27/21 18:59 06:59 18:59 Intake Total 222 Output Total 550 350 400 Balance -550 -128 -400 Weight 125 kg Intake: Oral 222 Output: Urine 550 350 400 Other: Voiding Method Indwelling Catheter Indwelling Catheter - Exam GENERAL DESCRIPTION: Middle-age female male lying in bed in no distress RESPIRATORY SYSTEM: Unlabored breathing , decreased breath sounds at bases HEART: S1 S2 regular rate and rhythm , ABDOMEN: Soft , no tenderness EXTREMITIES: Left lower extremity some superficial ulceration with minimal redness, right posterior thigh and gluteal area with no swelling no redness - Labs CBC & Chem 7: 12/27/21 09:26 12/27/21 09:26 Labs: Abnormal Lab Results - Last 24 Hours (Table) 12/26/21 12/26/21 12/26/21 Range/Units 16:39 18:32 20:16 WBC (3.8-10.6) k/uL Plt Count (150-450) k/uL Neutrophils # (1.3-7.7) k/uL Sodium 135 L (137-145) mmol/L Potassium 3.2 L (3.5-5.1) mmol/L Carbon Dioxide 18 L (22-30) mmol/L BUN 24 H (7-17) mg/dL Creatinine 1.14 H (0.52-1.04) mg/dL Glucose 305 H (74-99) mg/dL POC Glucose (mg/dL) 367 H 305 H (70-110) mg/dL Calcium 7.0 L (8.4-10.2) mg/dL Phosphorus (2.5-4.5) mg/dL AST (14-36) U/L Total Protein (6.3-8.2) g/dL Albumin (3.5-5.0) g/dL 12/27/21 12/27/21 12/27/21 Range/Units 00:07 05:49 09:26 WBC 15.1 H (3.8-10.6) k/uL Plt Count 116 L (150-450) k/uL Neutrophils # 12.5 H (1.3-7.7) k/uL Sodium 134 L (137-145) mmol/L Potassium (3.5-5.1) mmol/L Carbon Dioxide (22-30) mmol/L BUN 25 H (7-17) mg/dL Creatinine 1.18 H (0.52-1.04) mg/dL Glucose 317 H (74-99) mg/dL POC Glucose (mg/dL) 283 H (70-110) mg/dL Calcium 8.1 L (8.4-10.2) mg/dL Phosphorus 1.7 L (2.5-4.5) mg/dL AST 62 H (14-36) U/L Total Protein 5.2 L (6.3-8.2) g/dL Albumin 2.9 L (3.5-5.0) g/dL 12/27/21 12/27/21 Range/Units 09:26 11:34 WBC (3.8-10.6) k/uL Plt Count (150-450) k/uL Neutrophils # (1.3-7.7) k/uL Sodium 135 L (137-145) mmol/L Potassium 3.1 L (3.5-5.1) mmol/L Carbon Dioxide (22-30) mmol/L BUN 22 H (7-17) mg/dL Creatinine (0.52-1.04) mg/dL Glucose 244 H (74-99) mg/dL POC Glucose (mg/dL) 217 H (70-110) mg/dL Calcium 7.9 L (8.4-10.2) mg/dL Phosphorus (2.5-4.5) mg/dL AST 54 H (14-36) U/L Total Protein 5.2 L (6.3-8.2) g/dL Albumin 3.0 L (3.5-5.0) g/dL Microbiology - Last 24 Hours (Table) 12/25/21 19:50 Urine Culture - Final Urine,Catheterized 12/25/21 15:15 Blood Culture - Preliminary Blood No Growth after 24 hours 12/25/21 14:57 Blood Culture - Preliminary Blood No Growth after 24 hours Assessment and Plan (1) Fever Current Visit: Yes Status: Acute Code(s): R50.9 - FEVER, UNSPECIFIED SNOMED Code(s): 313546365 Plan: 1patient presented to hospital with generalized weakness did have a fever in this patient did have a subsequent visualization of the left leg and a stage II wound to the sacral area however the nursing staff mention there was no evidence of any redness or drainage, in this patient with negative UA CT abdominal pelvis did not show any acute abnormality chest x-ray was negative with a question of possible cellulitis etiology of her fever. 2patient with multiple antibiotic allergies that would limit the number of antibiotics safe to use. 3patient to continue with Rocephin 2 g daily while waiting for the cultures to finalize 4local wound care to left leg wound with Aquacel silver dressing change every 48 hour. 5we will recheck her inflammatory markers and CBC with am lab Time with Patient: Less than 30
[2021-12-28 05:18] LABS: Basophils % (A) 0 %; Eosinophils % (A) 0 %; HCT 41.8 % (34.0-46.0); HGB 13.3 gm/dL (11.4-16.0); Lymphocytes # (A) 1.5 k/uL (1.0-4.8); Lymphocytes % (A) 18 %; MCH 30.2 pg (25.0-35.0); MCHC 31.9 g/dL (31.0-37.0); MCV 94.6 fL (80.0-100.0); Mean Platelet Volume 9.4; Monocytes # (A) 0.6 k/uL (0-1.0); Monocytes % (A) 7 %; Neutrophils % (A) 73 %; RBC 4.42 m/uL (3.80-5.40); RDW 15.2 % (11.5-15.5); WBC 8.3 k/uL (3.8-10.6)
[2021-12-28 05:29] LABS: Platelet Count 91 k/uL (150-450)
[2021-12-28 05:40] LABS: Albumin 2.6 g/dL (3.5-5.0); C Reactive Protein 0.5 mg/dL (<1.0); Calcium 7.7 mg/dL (8.4-10.2); Magnesium 1.6 mg/dL (1.6-2.3); Phosphorus 1.5 mg/dL (2.5-4.5); Total Bilirubin 0.5 mg/dL (0.2-1.3); Total Protein 4.8 g/dL (6.3-8.2)
[2021-12-28 06:25] LABS: Glucose,Whole Blood 171 mg/dL (70-110)
[2021-12-28] MEDS: LEVOTHYROXINE 100 MCG TAB PO SCH (06:31)
[2021-12-28] MEDS: DOCUSATE 100 MG CAP PO SCH (06:31)
[2021-12-28] MEDS: OXYBUTYNIN 15 MG TAB.ER.24 PO SCH ×2 (06:32→17:20)
[2021-12-28] MEDS: INSULIN ASPART (NovoLOG) 100 UNIT/ML VIAL SQ SCH ×3 (06:32→17:19)
[2021-12-28] MEDS: TOPIRAMATE 100 MG TAB PO SCH ×2 (08:11→21:20)
[2021-12-28] MEDS: MORPHINE SULFATE ER 60 MG TABLET PO SCH ×2 (08:11→21:19)
[2021-12-28] MEDS: POTAS-SOD-PHOS 278-164-250 MG 1 EACH PACKET PO SCH ×3 (08:12→21:20)
[2021-12-28] MEDS: NYSTATIN 100,000 UNIT/GM POWD 15 GM TOPICAL SCH ×2 (08:12→21:21)
[2021-12-28] MEDS: busPIRone HCl 10 MG TAB PO SCH ×2 (08:12→21:19)
[2021-12-28] MEDS: SERTRALINE 100 MG TAB PO SCH ×2 (08:12→21:19)
[2021-12-28] MEDS: HYDROPHILIC CREAM 180 GM TUBE TOPICAL SCH (08:12)
[2021-12-28] MEDS: tiZANidine 4 MG TAB PO SCH ×2 (08:12→21:20)
[2021-12-28] MEDS: Dextroamphetamine/Amphetamine [Adderall] PO SCH ×2 (08:13→21:20)
[2021-12-28] MEDS: metroNIDAZOLE-NS PMX 500 MG in SALINE 1 100ML.BAG IVPB SCH ×2 (08:13→17:21)
[2021-12-28] MEDS: HEPARIN SODIUM,PORCINE/PF 5,000 UNIT/0.5 ML SYRINGE SQ SCH ×2 (09:32→17:20)
[2021-12-28] MEDS: POTASSIUM CHLORIDE ER 20 MEQ TAB.ER PO SCH ×3 (09:56→12:33)
[2021-12-28] MEDS: SODIUM CHLORIDE 0.9% 1,000 ML IV SCH (11:39)
[2021-12-28 11:43] LABS: Glucose,Whole Blood 167 mg/dL (70-110)
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
--- NOTE | 2021-12-28 12:20 | P.PN ---
Subjective History of Present Illness per H&P: H&P Date: 12/25/21 56-year-old female with past medical history significant for insulin-dependent t ype 2 diabetes mellitus chronic pain syndrome secondary to chronic back pain and right hip pain, hypothyroidism. Patient is not a very good history secondary to altered mental status. She is alert oriented to herself. She appears very weak and fatigue and disheveled. RN and emergency room stated that EMS told her that her brother called EMS due to increased weakness and altered mental status. Patient is complaining of right ear pain. She denies any chest pain but she stated that she short of breath. Other than that unable to obtain a good review of system secondary to altered mental status. Interval history: Patient was and examined at the bedside. She is alert oriented 2. She is complaining of chronic buttock and hip pain. Patient denies any chest pain shortness of breath. Physical examination: General: Oriented 2. Obese. appears older than stated age Derm: warm, dry Head: atraumatic, normocephalic, symmetric Eyes: EOMI, no lid lag, anicteric sclera Mouth: Dry Cardiovascular: S1S2 reg, no murmur, positive posterior tibial pulse bilateral, Lungs: CTA bilateral, no rhonchi, no rales , no accessory muscle use Abdominal: soft, obese nontender to palpation, no guarding, no appreciable organomegaly. Abdominal fold candidiasis Ext: Chronic venous changes, no edema, no contractures Neuro: Unable to assess secondary to confusion Psych: Confused Assessment and plan: #Acute toxic metabolic encephalopathy -Improving but the patient still alert oriented 2 -Unclear etiology could be secondary to Medications including narcotics, gabapentin and Atarax -Worsening mental status secondary to acute renal failure and dehydration -CT of the head without contrast ordered -Neuro decreased to topamax 100 mg twice daily -Holding Atarax and gabapentin -Lumbar puncture ordered but the patient declines #Insulin-dependent type 2 diabetes mellitus with Uncontrolled hyperglycemia -She is currently off insulin drip -Resume basal bolus insulin -A1c 8.1 #Severe dehydration with hemoconcentration. -Improving with IV fluids #Acute kidney injury -Most likely secondary to prerenal azotemia and dehydration -Improved with IV fluids #Lactic acidosis -Possibly secondary to dehydration -Computed tomography scan of chest, without contrast abdomen and pelvis unremarkable -Resume IV fluids. #Chronic pain syndrome -Patient on gabapentin and long-acting morphine and oxycodone for breakthrough pain -Holding long-acting morphine and gabapentin due to altered mental status and acute toxic metabolic encephalopathy #Fever of unknown origin #Leukocytosis -Discussed with neurologist lumbar puncture -Blood culture urine culture ordered -Negative influenza and COVID 19 -Patient on Rocephin and Flagyl per infectious disease recommendation #Severe hypokalemia -Replaced -Holding home dose Lasix #Type II and a STEMI secondary to above -2-D echo ordered and cardiology consultation was placed -Trend troponin #Hypothyroidism -TSH of resume Levothyroxine #Super Morbid obesity BMI 42 #Abdominal fold candidiasis -Nystatin powder #Severe debility and deconditioning -Consult PT/OT #Right buttock because ulcer -Present on admission -Consult wound care #DVT prophylaxis with subcutaneous heparin Objective - Vital Signs Vital signs: Vital Signs Temp 98.2 F 12/28/21 08:00 Pulse 105 H 12/28/21 08:00 Resp 18 12/28/21 08:00 BP 124/76 12/28/21 08:00 Pulse Ox 96 12/28/21 08:00 FiO2 Intake & Output 12/27/21 12/28/21 12/28/21 18:59 06:59 18:59 Intake Total 722 1070 250 Output Total 400 Balance 322 1070 250 Intake: IV 10 Invasive Line 1 10 Intake, IV Titration 100 Amount metroNIDAZOLE-NS PMX 500 100 mg In Saline 1 100ml.bag @ 100 mls/hr IVPB Q8HR [facility] Rx#:[id number] Oral 722 970 240 Output: Urine 400 Other: Voiding Method Indwelling Catheter Indwelling Catheter Indwelling Catheter # Bowel Movements 1 - Labs CBC & Chem 7: 12/28/21 04:50 12/28/21 04:50 Labs: Abnormal Lab Results - Last 24 Hours (Table) 12/27/21 12/27/21 12/27/21 Range/Units 09:26 16:19 20:48 Plt Count (150-450) k/uL Sodium (137-145) mmol/L Potassium (3.5-5.1) mmol/L Glucose (74-99) mg/dL POC Glucose (mg/dL) 189 H 239 H (70-110) mg/dL Calcium (8.4-10.2) mg/dL Phosphorus (2.5-4.5) mg/dL AST (14-36) U/L Total Protein (6.3-8.2) g/dL Total Protein (PEP) 5.2 L (6.2-8.2) g/dL Albumin (3.5-5.0) g/dL Procalcitonin (0.02-0.09) ng/mL IgG 522.0 L (700.0-1600.0) mg/dL 12/28/21 12/28/21 12/28/21 Range/Units 04:50 04:50 04:50 Plt Count 91 L (150-450) k/uL Sodium 135 L (137-145) mmol/L Potassium 3.0 L (3.5-5.1) mmol/L Glucose 196 H (74-99) mg/dL POC Glucose (mg/dL) (70-110) mg/dL Calcium 7.7 L (8.4-10.2) mg/dL Phosphorus 1.5 L (2.5-4.5) mg/dL AST 38 H (14-36) U/L Total Protein 4.8 L (6.3-8.2) g/dL Total Protein (PEP) (6.2-8.2) g/dL Albumin 2.6 L (3.5-5.0) g/dL Procalcitonin 0.31 H (0.02-0.09) ng/mL IgG (700.0-1600.0) mg/dL 12/28/21 12/28/21 Range/Units 06:23 11:41 Plt Count (150-450) k/uL Sodium (137-145) mmol/L Potassium (3.5-5.1) mmol/L Glucose (74-99) mg/dL POC Glucose (mg/dL) 171 H 167 H (70-110) mg/dL Calcium (8.4-10.2) mg/dL Phosphorus (2.5-4.5) mg/dL AST (14-36) U/L Total Protein (6.3-8.2) g/dL Total Protein (PEP) (6.2-8.2) g/dL Albumin (3.5-5.0) g/dL Procalcitonin (0.02-0.09) ng/mL IgG (700.0-1600.0) mg/dL Microbiology - Last 24 Hours (Table) 12/25/21 15:15 Blood Culture - Preliminary Blood No Growth after 48 hours 12/25/21 14:57 Blood Culture - Preliminary Blood No Growth after 48 hours 12/25/21 19:50 Urine Culture - Final Urine,Catheterized
--- NOTE | 2021-12-28 12:32 | P.PN ---
Subjective Progress Note Date: 12/28/21 Principal diagnosis: Fever Patient is a 53 female presenting to the hospital for evaluation of weakness fatigue symptoms for about a week and did have low-grade fever of 1.9 on presentation hospital. Initial Workup including CT of abdominal pelvis has been negative. On today's evaluation that is 12/28/2021, the patient remains to be afebrile, the patient is breathing comfortably on room air. the pt denies any headache no nausea no vomiting and abdominal pain no diarrhea Objective - Vital Signs Vital signs: Vital Signs Temp 98.2 F 12/28/21 08:00 Pulse 105 H 12/28/21 08:00 Resp 18 12/28/21 08:00 BP 124/76 12/28/21 08:00 Pulse Ox 96 12/28/21 08:00 FiO2 Intake & Output 12/27/21 12/28/21 12/28/21 18:59 06:59 18:59 Intake Total 722 1070 250 Output Total 400 Balance 322 1070 250 Intake: IV 10 Invasive Line 1 10 Intake, IV Titration 100 Amount metroNIDAZOLE-NS PMX 500 100 mg In Saline 1 100ml.bag @ 100 mls/hr IVPB Q8HR [facility] Rx#:[id number] Oral 722 970 240 Output: Urine 400 Other: Voiding Method Indwelling Catheter Indwelling Catheter Indwelling Catheter # Bowel Movements 1 - Exam GENERAL DESCRIPTION: Middle-age female male lying in bed in no distress RESPIRATORY SYSTEM: Unlabored breathing , decreased breath sounds at bases HEART: S1 S2 regular rate and rhythm , ABDOMEN: Soft , no tenderness EXTREMITIES: Left lower extremity some superficial ulceration with minimal redness, right posterior thigh and gluteal area with no swelling no redness - Labs CBC & Chem 7: 12/28/21 04:50 12/28/21 04:50 Labs: Abnormal Lab Results - Last 24 Hours (Table) 12/27/21 12/27/21 12/27/21 Range/Units 09:26 16:19 20:48 Plt Count (150-450) k/uL Sodium (137-145) mmol/L Potassium (3.5-5.1) mmol/L Glucose (74-99) mg/dL POC Glucose (mg/dL) 189 H 239 H (70-110) mg/dL Calcium (8.4-10.2) mg/dL Phosphorus (2.5-4.5) mg/dL AST (14-36) U/L Total Protein (6.3-8.2) g/dL Total Protein (PEP) 5.2 L (6.2-8.2) g/dL Albumin (3.5-5.0) g/dL Procalcitonin (0.02-0.09) ng/mL IgG 522.0 L (700.0-1600.0) mg/dL 12/28/21 12/28/21 12/28/21 Range/Units 04:50 04:50 04:50 Plt Count 91 L (150-450) k/uL Sodium 135 L (137-145) mmol/L Potassium 3.0 L (3.5-5.1) mmol/L Glucose 196 H (74-99) mg/dL POC Glucose (mg/dL) (70-110) mg/dL Calcium 7.7 L (8.4-10.2) mg/dL Phosphorus 1.5 L (2.5-4.5) mg/dL AST 38 H (14-36) U/L Total Protein 4.8 L (6.3-8.2) g/dL Total Protein (PEP) (6.2-8.2) g/dL Albumin 2.6 L (3.5-5.0) g/dL Procalcitonin 0.31 H (0.02-0.09) ng/mL IgG (700.0-1600.0) mg/dL 12/28/21 Range/Units 06:23 Plt Count (150-450) k/uL Sodium (137-145) mmol/L Potassium (3.5-5.1) mmol/L Glucose (74-99) mg/dL POC Glucose (mg/dL) 171 H (70-110) mg/dL Calcium (8.4-10.2) mg/dL Phosphorus (2.5-4.5) mg/dL AST (14-36) U/L Total Protein (6.3-8.2) g/dL Total Protein (PEP) (6.2-8.2) g/dL Albumin (3.5-5.0) g/dL Procalcitonin (0.02-0.09) ng/mL IgG (700.0-1600.0) mg/dL Microbiology - Last 24 Hours (Table) 12/25/21 15:15 Blood Culture - Preliminary Blood No Growth after 48 hours 12/25/21 14:57 Blood Culture - Preliminary Blood No Growth after 48 hours 12/25/21 19:50 Urine Culture - Final Urine,Catheterized Assessment and Plan (1) Fever Current Visit: Yes Status: Acute Code(s): R50.9 - FEVER, UNSPECIFIED SNOMED Code(s): 503354159 Plan: 1patient presented to hospital with generalized weakness did have a fever in this patient did have a subsequent visualization of the left leg and a stage II wound to the sacral area however the nursing staff mention there was no evidence of any redness or drainage, in this patient with negative UA CT abdominal pelvis did not show any acute abnormality chest x-ray was negative with a question of possible cellulitis etiology of her fever. 2patient with multiple antibiotic allergies that would limit the number of antibiotics safe to use. 3patient has shown clinical improvement the patient white count has normalized cultures are negative so far, patient to continue with Rocephin 2 g daily and plan to finish therapy with oral antibiotics 4local wound care to left leg wound with Aquacel silver dressing change every 48 hour. Time with Patient: Less than 30
[2021-12-28 12:44] LABS: LDH 657 U/L (313-618)
[2021-12-28 12:57] LABS: INR 2.2 (<1.2); Partial Thromboplastin Time 29.8 sec (22.0-30.0); Prothrombin Time 21.9 sec (9.0-12.0); Reticulocyte % 0.9 % (0.5-2.0)
--- NOTE | 2021-12-28 13:05 | P.PN ---
Subjective Progress Note Date: 12/28/21 Patient has a known history of hypertension dyslipidemia diabetes sleep apnea and morbid obesity presented to the hospital with mental status change and had an abnormal EKG raising the possibility of an anterior wall myocardial infarction. Patient did not have any chest pain shortness of breath and was not in heart failure. Her EKG showed sinus rhythm with left axis deviation and poor R wave progression and some ST segment elevations from V1 to V4. EKG changes were new when compared to old EKG from several years ago. An echocardiogram on this admission did not reveal any LV systolic dysfunction or wall motion abnormalities. Her mild troponin elevation probably related to her diabetic ketoacidosis. Patient is seen today resting comfortably in bed with no signs of acute distress. She continues to deny chest pain or shortness of breath. Patient's heart rate is well-controlled today. All other vital signs are stable and well- controlled. Will continue Toprol-XL 25 mg daily patient is hypokalemia, will supplement potassium. Objective - Vital Signs Vital signs: Vital Signs Temp 98.2 F 12/28/21 08:00 Pulse 105 H 12/28/21 08:00 Resp 18 12/28/21 08:00 BP 124/76 12/28/21 08:00 Pulse Ox 96 12/28/21 08:00 FiO2 Intake & Output 12/27/21 12/28/21 12/28/21 18:59 06:59 18:59 Intake Total 722 1070 250 Output Total 400 Balance 322 1070 250 Intake: IV 10 Invasive Line 1 10 Intake, IV Titration 100 Amount metroNIDAZOLE-NS PMX 500 100 mg In Saline 1 100ml.bag @ 100 mls/hr IVPB Q8HR [facility] Rx#:[id number] Oral 722 970 240 Output: Urine 400 Other: Voiding Method Indwelling Catheter Indwelling Catheter Indwelling Catheter # Bowel Movements 1 - Exam PHYSICAL EXAM: VITAL SIGNS: Reviewed. GENERAL: Well-developed in no acute distress. HEENT: Head is normocephalic. Pupils are equal, round. Sclerae anicteric. Mucous membranes of the mouth are moist. NECK: Supple. No JVD or thyromegaly RESPIRATORY: Respirations even and unlabored. Lungs diminished to auscultation bilaterally. CARDIO: Regular rate and rhythm. S1 and S2 heard. No murmur or gallops. EXTREMITIES: Normal range of motion. No clubbing or cyanosis. Peripheral pulses intact. Negative for bilateral lower extremity edema NEURO: Orientated to person, time, mood is appropriate - Labs CBC & Chem 7: 12/28/21 04:50 12/28/21 04:50 Labs: Abnormal Lab Results - Last 24 Hours (Table) 12/27/21 12/27/21 12/27/21 Range/Units 09:26 16:19 20:48 Plt Count (150-450) k/uL Sodium (137-145) mmol/L Potassium (3.5-5.1) mmol/L Glucose (74-99) mg/dL POC Glucose (mg/dL) 189 H 239 H (70-110) mg/dL Calcium (8.4-10.2) mg/dL Phosphorus (2.5-4.5) mg/dL AST (14-36) U/L Total Protein (6.3-8.2) g/dL Total Protein (PEP) 5.2 L (6.2-8.2) g/dL Albumin (3.5-5.0) g/dL Procalcitonin (0.02-0.09) ng/mL IgG 522.0 L (700.0-1600.0) mg/dL 12/28/21 12/28/21 12/28/21 Range/Units 04:50 04:50 04:50 Plt Count 91 L (150-450) k/uL Sodium 135 L (137-145) mmol/L Potassium 3.0 L (3.5-5.1) mmol/L Glucose 196 H (74-99) mg/dL POC Glucose (mg/dL) (70-110) mg/dL Calcium 7.7 L (8.4-10.2) mg/dL Phosphorus 1.5 L (2.5-4.5) mg/dL AST 38 H (14-36) U/L Total Protein 4.8 L (6.3-8.2) g/dL Total Protein (PEP) (6.2-8.2) g/dL Albumin 2.6 L (3.5-5.0) g/dL Procalcitonin 0.31 H (0.02-0.09) ng/mL IgG (700.0-1600.0) mg/dL 12/28/21 12/28/21 Range/Units 06:23 11:41 Plt Count (150-450) k/uL Sodium (137-145) mmol/L Potassium (3.5-5.1) mmol/L Glucose (74-99) mg/dL POC Glucose (mg/dL) 171 H 167 H (70-110) mg/dL Calcium (8.4-10.2) mg/dL Phosphorus (2.5-4.5) mg/dL AST (14-36) U/L Total Protein (6.3-8.2) g/dL Total Protein (PEP) (6.2-8.2) g/dL Albumin (3.5-5.0) g/dL Procalcitonin (0.02-0.09) ng/mL IgG (700.0-1600.0) mg/dL Microbiology - Last 24 Hours (Table) 12/25/21 15:15 Blood Culture - Preliminary Blood No Growth after 48 hours 12/25/21 14:57 Blood Culture - Preliminary Blood No Growth after 48 hours 12/25/21 19:50 Urine Culture - Final Urine,Catheterized Assessment and Plan Assessment: Elevated troponin secondary to diabetic ketoacidosis and renal insufficiency Acute coronary syndrome ruled out due to normal LV function without wall motion abnormalities Diabetic ketoacidosis Hypokalemia Plan: Supplement potassium Continue with all current cardiac medications Continue with telemetry monitoring Recommended further workup outpatient, Lexiscan after discharge Further recommendations based on clinical course The above impression and plan of care have been discussed and directed by the signing physician. Viridiana Peña, nurse practitioner, acting as scribe for signing physician.
--- NOTE | 2021-12-28 13:23 | XR ---
EXAMINATION TYPE: XR chest 1V portable DATE OF EXAM: 12/28/2021 COMPARISON: Chest x-ray 12/27/2021 HISTORY: Dyspnea TECHNIQUE: Single frontal view of the chest is obtained. FINDINGS: Technique is somewhat apical lordotic. There is no focal air space opacity, pleural effusi on, or pneumothorax seen. The cardiac silhouette size is within normal limits. The osseous structu res are intact. IMPRESSION: No acute process.
--- NOTE | 2021-12-28 13:49 | P.PN ---
Subjective Patient is seen for follow-up for acute kidney injury. Patient was on NSAIDs prior to admission. There is possible component of urine retention as well. Currently patient has an indwelling Martin catheter. Serum creatinine has improved from 1.6 to 0.8 mg/dL. She was 3.0 Blood pressure had been low and patient was maintained on IV fluids. No significant complaints today Objective - Vital Signs Vital signs: Vital Signs Temp 97.9 F 12/28/21 12:18 Pulse 82 12/28/21 12:18 Resp 18 12/28/21 12:18 BP 98/59 12/28/21 12:18 Pulse Ox 95 12/28/21 12:18 FiO2 Intake & Output 12/27/21 12/28/21 12/28/21 18:59 06:59 18:59 Intake Total 722 1070 250 Output Total 400 Balance 322 1070 250 Intake: IV 10 Invasive Line 1 10 Intake, IV Titration 100 Amount metroNIDAZOLE-NS PMX 500 100 mg In Saline 1 100ml.bag @ 100 mls/hr IVPB Q8HR [facility] Rx#:[id number] Oral 722 [id number] 240 Output: Urine 400 Other: Voiding Method Indwelling Catheter Indwelling Catheter Indwelling Catheter # Bowel Movements 1 - Exam Patient is awake, comfortable, not in any acute distress Patient currently receiving a bed bath Abdomen is soft nontender obese Examination lower extremity shows edema 1+ bilaterally [employer] exam grossly intact - Labs CBC & Chem 7: 12/28/21 04:50 12/28/21 04:50 Labs: Abnormal Lab Results - Last 24 Hours (Table) 12/27/21 12/27/21 12/27/21 Range/Units 09:26 16:19 20:48 Plt Count (150-450) k/uL PT (9.0-12.0) sec INR (<1.2) Sodium (137-145) mmol/L Potassium (3.5-5.1) mmol/L Glucose (74-99) mg/dL POC Glucose (mg/dL) 189 H 239 H (70-110) mg/dL Calcium (8.4-10.2) mg/dL Phosphorus (2.5-4.5) mg/dL AST (14-36) U/L Lactate Dehydrogenase (313-618) U/L Total Protein (6.3-8.2) g/dL Total Protein (PEP) 5.2 L (6.2-8.2) g/dL Albumin (3.5-5.0) g/dL Procalcitonin (0.02-0.09) ng/mL IgG 522.0 L (700.0-1600.0) mg/dL 12/28/21 12/28/21 12/28/21 Range/Units 04:50 04:50 04:50 Plt Count 91 L (150-450) k/uL PT (9.0-12.0) sec INR (<1.2) Sodium 135 L (137-145) mmol/L Potassium 3.0 L (3.5-5.1) mmol/L Glucose 196 H (74-99) mg/dL POC Glucose (mg/dL) (70-110) mg/dL Calcium 7.7 L (8.4-10.2) mg/dL Phosphorus 1.5 L (2.5-4.5) mg/dL AST 38 H (14-36) U/L Lactate Dehydrogenase (313-618) U/L Total Protein 4.8 L (6.3-8.2) g/dL Total Protein (PEP) (6.2-8.2) g/dL Albumin 2.6 L (3.5-5.0) g/dL Procalcitonin 0.31 H (0.02-0.09) ng/mL IgG (700.0-1600.0) mg/dL 12/28/21 12/28/21 12/28/21 Range/Units 06:23 11:41 11:53 Plt Count (150-450) k/uL PT (9.0-12.0) sec INR (<1.2) Sodium (137-145) mmol/L Potassium (3.5-5.1) mmol/L Glucose (74-99) mg/dL POC Glucose (mg/dL) 171 H 167 H (70-110) mg/dL Calcium (8.4-10.2) mg/dL Phosphorus (2.5-4.5) mg/dL AST (14-36) U/L Lactate Dehydrogenase 657 H (313-618) U/L Total Protein (6.3-8.2) g/dL Total Protein (PEP) (6.2-8.2) g/dL Albumin (3.5-5.0) g/dL Procalcitonin (0.02-0.09) ng/mL IgG (700.0-1600.0) mg/dL 12/28/21 Range/Units 11:53 Plt Count (150-450) k/uL PT 21.9 H (9.0-12.0) sec INR 2.2 H (<1.2) Sodium (137-145) mmol/L Potassium (3.5-5.1) mmol/L Glucose (74-99) mg/dL POC Glucose (mg/dL) (70-110) mg/dL Calcium (8.4-10.2) mg/dL Phosphorus (2.5-4.5) mg/dL AST (14-36) U/L Lactate Dehydrogenase (313-618) U/L Total Protein (6.3-8.2) g/dL Total Protein (PEP) (6.2-8.2) g/dL Albumin (3.5-5.0) g/dL Procalcitonin (0.02-0.09) ng/mL IgG (700.0-1600.0) mg/dL Microbiology - Last 24 Hours (Table) 12/25/21 15:15 Blood Culture - Preliminary Blood No Growth after 48 hours 12/25/21 14:57 Blood Culture - Preliminary Blood No Growth after 48 hours 12/25/21 19:50 Urine Culture - Final Urine,Catheterized Assessment and Plan Assessment: 1. Acute kidney injury, ATN nonoliguric secondary to low blood pressure. Patient was also maintained on nonsteroidal anti-inflammatory agents prior to admission. She may have had a component of urine retention as well as 900 mL of urine as documented. I'm not sure this was obtained on initial Martin catheter placement. UA shows 2+ protein and large blood. Renal function significantly improved. Currently maintained on IV fluids. Diuretics and NSAIDs currently on hold 2. Hypokalemia associated with use of diuretics prior to admission currently being replaced magnesium 1.9 3. Lactic acidosis currently improving 4. Diabetic ketoacidosis status post insulin drip 5. Chronic kidney disease NKF stage II with previous creatinine 0.9 in 2017 but UA has shown proteinuria. Etiology is diabetic kidney disease 6. Elevated troponin being followed by cardiology. No evidence of acute [place] 7. Hypophosphatemia maintained on Neutra-Phos Plan: DC IV fluids Continue to Replace potassium and phosphorus Encourage increased oral intake.
[2021-12-28 16:37] LABS: Glucose,Whole Blood 134 mg/dL (70-110)
[2021-12-28 18:23] LABS: Rheumatoid Factor, Qnt <10 IU/mL (0-15)
[2021-12-28 18:29] LABS: % Iron Saturation 43.69 (12.00-45.00)
[2021-12-28 20:16] LABS: Glucose,Whole Blood 106 mg/dL (70-110)
[2021-12-28] MEDS: INSULIN DETEMIR (LEVEMIR) 100 UNIT/ML SYR SQ SCH (21:19)
[2021-12-28] MEDS: LORATADINE 10 MG TAB PO SCH (21:19)
[2021-12-28] MEDS: PANTOPRAZOLE 40 MG TABLET PO SCH (21:19)
[2021-12-28] MEDS: oxyCODONE-APAP 10-325MG 1 EACH TAB PO PRN (21:19)
[2021-12-28] MEDS: METOCLOPRAMIDE 10 MG TAB PO SCH (21:20)
[2021-12-29] MEDS: metroNIDAZOLE-NS PMX 500 MG in SALINE 1 100ML.BAG IVPB SCH ×2 (00:27→09:27)
[2021-12-29] MEDS: HEPARIN SODIUM,PORCINE/PF 5,000 UNIT/0.5 ML SYRINGE SQ SCH ×3 (00:28→17:10)
--- NOTE | 2021-12-29 02:07 | P.PN ---
Subjective Progress Note Date: 12/27/21 Patient was seen for a follow-up. Patient is laying comfortably in the bed. Patient is more alert and awake. Patient denies any headache, no dizziness. Denies any neck pain. Per nurse patient is getting more better. More alert and awake, and better oriented. Still gets confused. Less lethargic. Objective - Vital Signs Vital signs: Vital Signs Temp 98.3 F 12/27/21 11:39 Pulse 104 H 12/27/21 11:39 Resp 16 12/27/21 11:39 BP 124/75 12/27/21 11:39 Pulse Ox 97 12/27/21 11:39 FiO2 Intake & Output 12/26/21 12/27/21 12/27/21 18:59 06:59 18:59 Intake Total 222 222 Output Total 550 350 400 Balance -550 -128 -178 Weight 125 kg Intake: Oral 222 222 Output: Urine 550 350 400 Other: Voiding Method Indwelling Catheter Indwelling Catheter Indwelling Catheter # Bowel Movements 1 - Exam Patient is alert and awake. Speech and language functions are normal. Patient can name and repeat very well. Patient states it's February and the year is 2020. She knows that she is in [facility] in [facility] and name of the current president. Her pupils are equal, round and reactive to light, visual huggins are full, extraocular muscles intact, face is symmetric and tongue protrudes the midline. Rest of the examination is unchanged. - Labs CBC & Chem 7: 12/28/21 04:50 12/28/21 04:50 Labs: Abnormal Lab Results - Last 24 Hours (Table) 12/26/21 12/26/21 12/26/21 Range/Units 16:39 18:32 20:16 WBC (3.8-10.6) k/uL Plt Count (150-450) k/uL Neutrophils # (1.3-7.7) k/uL Sodium 135 L (137-145) mmol/L Potassium 3.2 L (3.5-5.1) mmol/L Carbon Dioxide 18 L (22-30) mmol/L BUN 24 H (7-17) mg/dL Creatinine 1.14 H (0.52-1.04) mg/dL Glucose 305 H (74-99) mg/dL POC Glucose (mg/dL) 367 H 305 H (70-110) mg/dL Calcium 7.0 L (8.4-10.2) mg/dL Phosphorus (2.5-4.5) mg/dL AST (14-36) U/L Total Protein (6.3-8.2) g/dL Albumin (3.5-5.0) g/dL 12/27/21 12/27/21 12/27/21 Range/Units 00:07 05:49 09:26 WBC 15.1 H (3.8-10.6) k/uL Plt Count 116 L (150-450) k/uL Neutrophils # 12.5 H (1.3-7.7) k/uL Sodium 134 L (137-145) mmol/L Potassium (3.5-5.1) mmol/L Carbon Dioxide (22-30) mmol/L BUN 25 H (7-17) mg/dL Creatinine 1.18 H (0.52-1.04) mg/dL Glucose 317 H (74-99) mg/dL POC Glucose (mg/dL) 283 H (70-110) mg/dL Calcium 8.1 L (8.4-10.2) mg/dL Phosphorus 1.7 L (2.5-4.5) mg/dL AST 62 H (14-36) U/L Total Protein 5.2 L (6.3-8.2) g/dL Albumin 2.9 L (3.5-5.0) g/dL 12/27/21 12/27/21 Range/Units 09:26 11:34 WBC (3.8-10.6) k/uL Plt Count (150-450) k/uL Neutrophils # (1.3-7.7) k/uL Sodium 135 L (137-145) mmol/L Potassium 3.1 L (3.5-5.1) mmol/L Carbon Dioxide (22-30) mmol/L BUN 22 H (7-17) mg/dL Creatinine (0.52-1.04) mg/dL Glucose 244 H (74-99) mg/dL POC Glucose (mg/dL) 217 H (70-110) mg/dL Calcium 7.9 L (8.4-10.2) mg/dL Phosphorus (2.5-4.5) mg/dL AST 54 H (14-36) U/L Total Protein 5.2 L (6.3-8.2) g/dL Albumin 3.0 L (3.5-5.0) g/dL Microbiology - Last 24 Hours (Table) 12/25/21 19:50 Urine Culture - Final Urine,Catheterized 12/25/21 15:15 Blood Culture - Preliminary Blood No Growth after 24 hours 12/25/21 14:57 Blood Culture - Preliminary Blood No Growth after 24 hours Assessment and Plan Assessment: * Altered mental status, likely due to metabolic encephalopathy. Reasons multifactorial as mentioned below. Encephalopathy much improved. Patient more alert and awake and oriented. * Diabetic ketoacidosis * Hypoxemia (on ABG) * Uncontrolled diabetes * Decubitus ulcer sacral region, stage II * Hypokalemia * Lactic acidosis * Mild renal insufficiency * Severe peripheral neuropathy Plan: * Patient's mental status, encephalopathy has much improved. * Patient is taking high dose Topamax 300 mg a day (for headaches). High dose Topamax can be associated with lactic acidosis and may be contributing to her altered mental status. We will decrease Topamax down to 100 mg twice a day. * Patient declined MRI of the cervical spine, we will cancel it. * Patient has chronic weakness of the lower extremities. Patient was recommended to follow up with a neurologist. She may need EMG and nerve conduction of lower extremities to rule out any inflammatory polyneuropathy. * B12 364, folate 5.40, MMA, B6, IgM normal 128, IgG 522, IgA 182 normal, rheumatoid factor negative, immunofixation electrophoresis, serum protein electrophoresis. Hemoglobin A1c is 8.1 * We will start folic acid 1 mg daily and vitamin B12 1000 g IM 1 dose, then 1000 g orally daily. * Discussed in detail with infectious disease and primary physician. Patient denies headache, her neck is supple. No clinical evidence of meningitis.
--- NOTE | 2021-12-29 02:14 | P.PN ---
Subjective Progress Note Date: 12/28/21 This is a telemedicine neurology follow performed today on 12/28/2021. Patient is laying comfortably in the bed. Patient is more alert and awake. Patient denies any headache, no dizziness. Denies any neck pain. Per nurse patient is getting more better. More alert and awake, and better oriented 2. Patient is more appropriate, alert, but sometimes gets gets confused regarding the month and year. Primary physician has recommended lumbar puncture, but she has declined. Objective - Vital Signs Vital signs: Vital Signs Temp 97.9 F 12/28/21 20:00 Pulse 72 12/29/21 00:00 Resp 16 12/29/21 00:00 BP 102/54 12/29/21 00:00 Pulse Ox 95 12/29/21 00:00 FiO2 Intake & Output 12/28/21 12/28/21 12/29/21 06:59 18:59 06:59 Intake Total 1070 1600 Output Total 250 Balance 1070 1350 Intake: IV 10 Invasive Line 1 10 Intake, IV Titration 100 750 Amount Sodium Chloride 0.9% 1, 600 000 ml @ 50 mls/hr IV . Q20H JEREL Rx#:[id number] cefTRIAXone 2 gm In 50 Sodium Chloride 0.9% 50 ml @ 100 mls/hr IVPB Q24HR JEREL Rx#:[id number] metroNIDAZOLE-NS PMX 500 100 100 mg In Saline 1 100ml.bag @ 100 mls/hr IVPB Q8HR JEREL Rx#:[id number] Oral 970 840 Output: Urine 250 Other: Voiding Method Indwelling Catheter Indwelling Catheter Indwelling Catheter # Bowel Movements 1 - Exam Patient is alert and awake. Speech and language functions are normal. Patient can name and repeat very well. Patient states it's January and the year is 2020. She knows that she is in [facility] in [facility] and name of the current president. Patient complains of pain in the leg but she has chronic back pain. Her neck is supple - Labs CBC & Chem 7: 12/28/21 04:50 12/28/21 04:50 Labs: Abnormal Lab Results - Last 24 Hours (Table) 12/28/21 12/28/21 12/28/21 Range/Units 04:50 04:50 04:50 Plt Count 91 L (150-450) k/uL PT (9.0-12.0) sec INR (<1.2) Sodium 135 L (137-145) mmol/L Potassium 3.0 L (3.5-5.1) mmol/L Glucose 196 H (74-99) mg/dL POC Glucose (mg/dL) (70-110) mg/dL Calcium 7.7 L (8.4-10.2) mg/dL Phosphorus 1.5 L (2.5-4.5) mg/dL TIBC (228-460) ug/dL Transferrin (204.0-354.0) mg/dL Ferritin (10.0-291.0) ng/mL AST 38 H (14-36) U/L Lactate Dehydrogenase (313-618) U/L Total Protein 4.8 L (6.3-8.2) g/dL Albumin 2.6 L (3.5-5.0) g/dL Vitamin D 25-Hydroxy (30.0-100.0) ng/mL Procalcitonin 0.31 H (0.02-0.09) ng/mL 12/28/21 12/28/21 12/28/21 Range/Units 06:23 11:41 11:53 Plt Count (150-450) k/uL PT (9.0-12.0) sec INR (<1.2) Sodium (137-145) mmol/L Potassium (3.5-5.1) mmol/L Glucose (74-99) mg/dL POC Glucose (mg/dL) 171 H 167 H (70-110) mg/dL Calcium (8.4-10.2) mg/dL Phosphorus (2.5-4.5) mg/dL TIBC (228-460) ug/dL Transferrin (204.0-354.0) mg/dL Ferritin 381.0 H (10.0-291.0) ng/mL AST (14-36) U/L Lactate Dehydrogenase 657 H (313-618) U/L Total Protein (6.3-8.2) g/dL Albumin (3.5-5.0) g/dL Vitamin D 25-Hydroxy 5.3 L (30.0-100.0) ng/mL Procalcitonin (0.02-0.09) ng/mL 12/28/21 12/28/2112/28/22 Range/Units 11:53 11:53 16:35 Plt Count (150-450) k/uL PT 21.9 H (9.0-12.0) sec INR 2.2 H (<1.2) Sodium (137-145) mmol/L Potassium (3.5-5.1) mmol/L Glucose (74-99) mg/dL POC Glucose (mg/dL) 134 H (70-110) mg/dL Calcium (8.4-10.2) mg/dL Phosphorus (2.5-4.5) mg/dL TIBC 181 L (228-460) ug/dL Transferrin 129.0 L (204.0-354.0) mg/dL Ferritin (10.0-291.0) ng/mL AST (14-36) U/L Lactate Dehydrogenase (313-618) U/L Total Protein (6.3-8.2) g/dL Albumin (3.5-5.0) g/dL Vitamin D 25-Hydroxy (30.0-100.0) ng/mL Procalcitonin (0.02-0.09) ng/mL Microbiology - Last 24 Hours (Table) 12/25/21 15:15 Blood Culture - Preliminary Blood No Growth after 72 hours 12/25/21 14:57 Blood Culture - Preliminary Blood No Growth after 72 hours Assessment and Plan Assessment: * Altered mental status, likely due to metabolic encephalopathy, much improved. * Diabetic ketoacidosis * Hypoxemia (on ABG) * Uncontrolled diabetes * Decubitus ulcer sacral region, stage II * Hypokalemia * Lactic acidosis * Mild renal insufficiency * Severe peripheral neuropathy * Folate deficiency * B12 insufficiency Plan: * Patient's mental status, encephalopathy has much improved. * Patient is taking high dose Topamax 300 mg a day (for headaches). High dose Topamax can be associated with lactic acidosis and may be contributing to her altered mental status. We will decrease Topamax down to 100 mg twice a day. * Patient has chronic weakness of the lower extremities. Patient was recommended to follow up with a neurologist. She may need EMG and nerve conduction of lower extremities to rule out any inflammatory polyneuropathy. * B12 364, folate 5.40, MMA, B6, IgM normal 128, IgG 522, IgA 182 normal, rheumatoid factor negative, immunofixation electrophoresis, serum protein electrophoresis still pending. Hemoglobin A1c is 8.1 * We will start folic acid 1 mg daily and vitamin B12 1000 g IM 1 dose, then 1000 g orally daily. * As there is no active neurological issue, we will sign off. Please reconsult neurology if any other concerns.
[2021-12-29] MEDS: oxyCODONE-APAP 10-325MG 1 EACH TAB PO PRN ×2 (03:20→22:13)
[2021-12-29 05:46] LABS: Basophils % (A) 0 %; Eosinophils # (A) 0.1 k/uL (0-0.7); Eosinophils % (A) 2 %; HCT 41.2 % (34.0-46.0); HGB 13.4 gm/dL (11.4-16.0); Hypochromasia Slight; Lymphocytes # (A) 1.6 k/uL (1.0-4.8); Lymphocytes % (A) 26 %; MCH 31.1 pg (25.0-35.0); MCHC 32.6 g/dL (31.0-37.0); MCV 95.5 fL (80.0-100.0); Mean Platelet Volume 9.6; Monocytes # (A) 0.4 k/uL (0-1.0); Monocytes % (A) 6 %; Neutrophils # (A) 3.8 k/uL (1.3-7.7); Neutrophils % (A) 63 %; RBC 4.32 m/uL (3.80-5.40); RDW 15.5 % (11.5-15.5)
[2021-12-29 05:50] LABS: Platelet Count 84 k/uL (150-450)
[2021-12-29 05:58] LABS: ALT 16 U/L (4-34); AST 41 U/L (14-36); African American GFR (CKD) >90 (>60 ml/min/1.73 sqM); Albumin 2.5 g/dL (3.5-5.0); Alkaline Phosphatase 63 U/L (38-126); Anion Gap 2 mmol/L; Blood Urea Nitrogen 12 mg/dL (7-17); Calcium 7.6 mg/dL (8.4-10.2); Carbon Dioxide 30 mmol/L (22-30); Chloride 104 mmol/L (98-107); Glucose 100 mg/dL (74-99); Magnesium 1.5 mg/dL (1.6-2.3); Non-African American GFR(CKD) 78 (>60 ml/min/1.73 sqM); Potassium 3.1 mmol/L (3.5-5.1); Sodium 136 mmol/L (137-145); Total Bilirubin 0.5 mg/dL (0.2-1.3); Total Protein 4.6 g/dL (6.3-8.2)
[2021-12-29 06:01] LABS: Glucose,Whole Blood 85 mg/dL (70-110)
[2021-12-29] MEDS: INSULIN ASPART (NovoLOG) 100 UNIT/ML VIAL SQ SCH ×3 (06:03→17:10)
[2021-12-29] MEDS: DOCUSATE 100 MG CAP PO SCH (06:07)
[2021-12-29] MEDS: OXYBUTYNIN 15 MG TAB.ER.24 PO SCH ×2 (06:07→17:11)
[2021-12-29] MEDS: LEVOTHYROXINE 100 MCG TAB PO SCH (06:07)
[2021-12-29] MEDS: ALBUTEROL NEBULIZED 2.5 MG/3 ML INHALATION PRN (07:40)
[2021-12-29] MEDS ORDERED: CYANOCOBALAMIN 1,000 MCG/ML 1 ML VIAL IM ONE (09:00)
[2021-12-29] MEDS: MORPHINE SULFATE ER 60 MG TABLET PO SCH (09:27)
[2021-12-29] MEDS: TOPIRAMATE 100 MG TAB PO SCH ×2 (09:28→21:59)
[2021-12-29] MEDS: POTAS-SOD-PHOS 278-164-250 MG 1 EACH PACKET PO SCH ×3 (09:28→22:02)
[2021-12-29] MEDS: busPIRone HCl 10 MG TAB PO SCH ×2 (09:28→21:59)
[2021-12-29] MEDS: POTASSIUM CHLORIDE ER 20 MEQ TAB.ER PO SCH ×2 (09:28→11:54)
[2021-12-29] MEDS: FOLIC ACID 1 MG TAB PO SCH (09:28)
[2021-12-29] MEDS: tiZANidine 4 MG TAB PO SCH ×2 (09:29→21:59)
[2021-12-29] MEDS: SERTRALINE 100 MG TAB PO SCH ×2 (09:29→21:59)
[2021-12-29] MEDS: HYDROPHILIC CREAM 180 GM TUBE TOPICAL SCH (09:29)
[2021-12-29] MEDS: NYSTATIN 100,000 UNIT/GM POWD 15 GM TOPICAL SCH ×2 (09:29→23:31)
[2021-12-29] MEDS: Dextroamphetamine/Amphetamine [Adderall] PO SCH ×2 (09:30→23:30)
--- NOTE | 2021-12-29 09:39 | P.PN ---
Subjective Patient is seen for follow-up for acute kidney injury. Patient was on NSAIDs prior to admission. There is possible component of urine retention as well. Currently patient has an indwelling Martin catheter. Serum creatinine has improved from 1.6 to 0.8 mg/dL. Blood pressure had been low and patient was maintained on IV fluids. No significant complaints today Serum potassium 3.1 today. Objective - Vital Signs Vital signs: Vital Signs Temp 97.9 F 12/28/21 20:00 Pulse 81 12/29/21 04:00 Resp 16 12/29/21 04:00 BP 105/58 12/29/21 04:00 Pulse Ox 95 12/29/21 04:00 FiO2 Intake & Output 12/28/21 12/29/21 12/29/21 18:59 06:59 18:59 Intake Total 1600 585 Output Total 250 Balance 1350 585 Intake: IV 10 Invasive Line 1 10 Intake, IV Titration 750 100 Amount Sodium Chloride 0.9% 1, 600 000 ml @ 50 mls/hr IV . Q20H JEREL Rx#:[id number] cefTRIAXone 2 gm In 50 Sodium Chloride 0.9% 50 ml @ 100 mls/hr IVPB Q24HR JEREL Rx#:[id number] metroNIDAZOLE-NS PMX 500 100 100 mg In Saline 1 100ml.bag @ 100 mls/hr IVPB Q8HR JEREL Rx#:[id number] Oral 840 485 Output: Urine 250 Other: Voiding Method Indwelling Catheter Indwelling Catheter Indwelling Catheter # Bowel Movements 1 - Exam Patient is awake, comfortable, not in any acute distress Patient currently receiving a bed bath Abdomen is soft nontender obese Examination lower extremity shows edema 1+ bilaterally NIGHT TIME NANNY exam grossly intact - Labs CBC & Chem 7: 12/29/21 05:01 12/29/21 05:01 Labs: Abnormal Lab Results - Last 24 Hours (Table) 12/28/21 12/28/21 12/28/21 Range/Units 04:50 11:41 11:53 Plt Count 91 L (150-450) k/uL PT (9.0-12.0) sec INR (<1.2) Sodium (137-145) mmol/L Potassium (3.5-5.1) mmol/L Glucose (74-99) mg/dL POC Glucose (mg/dL) 167 H (70-110) mg/dL Calcium (8.4-10.2) mg/dL Magnesium (1.6-2.3) mg/dL TIBC (228-460) ug/dL Transferrin (204.0-354.0) mg/dL Ferritin 381.0 H (10.0-291.0) ng/mL AST (14-36) U/L Lactate Dehydrogenase 657 H (313-618) U/L Total Protein (6.3-8.2) g/dL Albumin (3.5-5.0) g/dL Vitamin D 25-Hydroxy 5.3 L (30.0-100.0) ng/mL 12/28/21 12/28/21 12/28/21 Range/Units 11:53 11:53 16:35 Plt Count (150-450) k/uL PT 21.9 H (9.0-12.0) sec INR 2.2 H (<1.2) Sodium (137-145) mmol/L Potassium (3.5-5.1) mmol/L Glucose (74-99) mg/dL POC Glucose (mg/dL) 134 H (70-110) mg/dL Calcium (8.4-10.2) mg/dL Magnesium (1.6-2.3) mg/dL TIBC 181 L (228-460) ug/dL Transferrin 129.0 L (204.0-354.0) mg/dL Ferritin (10.0-291.0) ng/mL AST (14-36) U/L Lactate Dehydrogenase (313-618) U/L Total Protein (6.3-8.2) g/dL Albumin (3.5-5.0) g/dL Vitamin D 25-Hydroxy (30.0-100.0) ng/mL 12/29/21 12/29/21 Range/Units 05:01 05:01 Plt Count 84 L (150-450) k/uL PT (9.0-12.0) sec INR (<1.2) Sodium 136 L (137-145) mmol/L Potassium 3.1 L (3.5-5.1) mmol/L Glucose 100 H (74-99) mg/dL POC Glucose (mg/dL) (70-110) mg/dL Calcium 7.6 L (8.4-10.2) mg/dL Magnesium 1.5 L (1.6-2.3) mg/dL TIBC (228-460) ug/dL Transferrin (204.0-354.0) mg/dL Ferritin (10.0-291.0) ng/mL AST 41 H (14-36) U/L Lactate Dehydrogenase (313-618) U/L Total Protein 4.6 L (6.3-8.2) g/dL Albumin 2.5 L (3.5-5.0) g/dL Vitamin D 25-Hydroxy (30.0-100.0) ng/mL Microbiology - Last 24 Hours (Table) 12/25/21 15:15 Blood Culture - Preliminary Blood No Growth after 72 hours 12/25/21 14:57 Blood Culture - Preliminary Blood No Growth after 72 hours Assessment and Plan Assessment: 1. Acute kidney injury, ATN nonoliguric secondary to low blood pressure. Patient was also maintained on nonsteroidal anti-inflammatory agents prior to admission. She may have had a component of urine retention as well as 900 mL of urine as documented. I'm not sure this was obtained on initial Martin catheter placement. UA shows 2+ protein and large blood. Renal function significantly improved. Currently maintained on IV fluids. Diuretics and NSAIDs currently on hold 2. Hypokalemia associated with use of diuretics prior to admission currently being replaced magnesium 1.9 3. Lactic acidosis currently improving 4. Diabetic ketoacidosis status post insulin drip 5. Chronic kidney disease NKF stage II with previous creatinine 0.9 in 2017 but UA has shown proteinuria. Etiology is diabetic kidney disease 6. Elevated troponin being followed by cardiology. No evidence of acute ME 7. Hypophosphatemia maintained on Neutra-Phos Plan: DC IV fluids Continue to Replace potassium and phosphorus Encourage increased oral intake.
--- NOTE | 2021-12-29 10:56 | P.PN ---
Subjective History of Present Illness per H&P: H&P Date: 12/25/21 56-year-old female with past medical history significant for insulin-dependent t ype 2 diabetes mellitus chronic pain syndrome secondary to chronic back pain and right hip pain, hypothyroidism. Patient is not a very good history secondary to altered mental status. She is alert oriented to herself. She appears very weak and fatigue and disheveled. RN and emergency room stated that EMS told her that her brother called EMS due to increased weakness and altered mental status. Patient is complaining of right ear pain. She denies any chest pain but she stated that she short of breath. Other than that unable to obtain a good review of system secondary to altered mental status. Interval history: Patient was and examined at the bedside. She is alert oriented 2. Patient denies any chest pain or shortness of breath. No acute changes overnight Physical examination: General: Oriented 2. Obese. appears older than stated age Derm: warm, dry Head: atraumatic, normocephalic, symmetric Eyes: EOMI, no lid lag, anicteric sclera Mouth: Dry Cardiovascular: S1S2 reg, no murmur, positive posterior tibial pulse bilateral, Lungs: CTA bilateral, no rhonchi, no rales , no accessory muscle use Abdominal: soft, obese nontender to palpation, no guarding, no appreciable organomegaly. Abdominal fold candidiasis Ext: Chronic venous changes, no edema, no contractures Neuro: Unable to assess secondary to confusion Psych: Confused Assessment and plan: #Acute toxic metabolic encephalopathy -Improving but the patient still alert oriented 2 -Unclear etiology could be secondary to Medications including narcotics, gabapentin and Atarax -Possibly secondary to acute renal failure and dehydration -CT of the head without contrast without any acute process -Neuro decreased to topamax 100 mg twice daily -Holding Atarax and gabapentin -Patient declined lumbar puncture #Insulin-dependent type 2 diabetes mellitus with Uncontrolled hyperglycemia -She is currently off insulin drip -Resume basal bolus insulin -A1c 8.1 #Acute thrombocytopenia -Unclear etiology. -Hematology consulted -Monitor CBC daily #Severe dehydration with hemoconcentration. -Improvedwith IV fluids #Acute kidney injury -Most likely secondary to prerenal azotemia and dehydration -Appreciate input from nephrology -Renal ultrasound without obstruction -Improved with IV fluids #Lactic acidosis -Possibly secondary to dehydration -Computed tomography scan of chest, without contrast abdomen and pelvis unremarkable -Resume IV fluids. #Chronic pain syndrome -Patient on gabapentin and long-acting morphine and oxycodone for breakthrough pain -Holding long-acting morphine and gabapentin due to altered mental status and acute toxic metabolic encephalopathy #Fever #Leukocytosis -Unclear source of infection -Patient afebrile -Blood culture negative to date -Negative influenza and COVID 19 -Patient on Rocephin and Flagyl per infectious disease recommendation #Severe hypokalemia -Replaced -Holding home dose Lasix #Type II and a STEMI secondary to above -2-D echo :Showed normal left ventricular systolic function -Appreciate cardiology input #Hypothyroidism -Resume levothyroxine #Super Morbid obesity BMI 42 #Abdominal folds candidiasis -Nystatin powder #Right buttock because ulcer -Present on admission -Resume wound care #DVT prophylaxis with subcutaneous heparin #Severe debility and deconditioning -Patient found to wheelchair for years secondary to chronic lower extremity weakness -Consult PT/OT. -Plan to discharge to longterm home in 2-3 days Objective - Vital Signs Vital signs: Vital Signs Temp 98.3 F 12/29/21 09:43 Pulse 93 12/29/21 09:43 Resp 18 12/29/21 09:43 BP 116/75 12/29/21 09:43 Pulse Ox 94 L 12/29/21 09:43 FiO2 Intake & Output 12/28/21 12/29/21 12/29/21 18:59 06:59 18:59 Intake Total 1600 585 Output Total 250 Balance 1350 585 Intake: IV 10 Invasive Line 1 10 Intake, IV Titration 750 100 Amount Sodium Chloride 0.9% 1, 600 000 ml @ 50 mls/hr IV . Q20H JEREL Rx#:[id number] cefTRIAXone 2 gm In 50 Sodium Chloride 0.9% 50 ml @ 100 mls/hr IVPB Q24HR JEREL Rx#:[id number] metroNIDAZOLE-NS PMX 500 100 100 mg In Saline 1 100ml.bag @ 100 mls/hr IVPB Q8HR JEREL Rx#:[id number] Oral 840 485 Output: Urine 250 Other: Voiding Method Indwelling Catheter Indwelling Catheter Indwelling Catheter # Bowel Movements 1 - Labs CBC & Chem 7: 12/29/21 05:01 12/29/21 05:01 Labs: Abnormal Lab Results - Last 24 Hours (Table) 06/12/28/21 12/28/21 Range/Units 04:50 11:41 11:53 Plt Count 91 L (150-450) k/uL PT (9.0-12.0) sec INR (<1.2) Sodium (137-145) mmol/L Potassium (3.5-5.1) mmol/L Glucose (74-99) mg/dL POC Glucose (mg/dL) 167 H (70-110) mg/dL Calcium (8.4-10.2) mg/dL Magnesium (1.6-2.3) mg/dL TIBC (228-460) ug/dL Transferrin (204.0-354.0) mg/dL Ferritin 381.0 H (10.0-291.0) ng/mL AST (14-36) U/L Lactate Dehydrogenase 657 H (313-618) U/L Total Protein (6.3-8.2) g/dL Albumin (3.5-5.0) g/dL Vitamin D 25-Hydroxy 5.3 L (30.0-100.0) ng/mL 12/28/21 12/28/21 12/28/21 Range/Units 11:53 11:53 16:35 Plt Count (150-450) k/uL PT 21.9 H (9.0-12.0) sec INR 2.2 H (<1.2) Sodium (137-145) mmol/L Potassium (3.5-5.1) mmol/L Glucose (74-99) mg/dL POC Glucose (mg/dL) 134 H (70-110) mg/dL Calcium (8.4-10.2) mg/dL Magnesium (1.6-2.3) mg/dL TIBC 181 L (228-460) ug/dL Transferrin 129.0 L (204.0-354.0) mg/dL Ferritin (10.0-291.0) ng/mL AST (14-36) U/L Lactate Dehydrogenase (313-618) U/L Total Protein (6.3-8.2) g/dL Albumin (3.5-5.0) g/dL Vitamin D 25-Hydroxy (30.0-100.0) ng/mL 12/29/21 12/29/21 Range/Units 05:01 05:01 Plt Count 84 L (150-450) k/uL PT (9.0-12.0) sec INR (<1.2) Sodium 136 L (137-145) mmol/L Potassium 3.1 L (3.5-5.1) mmol/L Glucose 100 H (74-99) mg/dL POC Glucose (mg/dL) (70-110) mg/dL Calcium 7.6 L (8.4-10.2) mg/dL Magnesium 1.5 L (1.6-2.3) mg/dL TIBC (228-460) ug/dL Transferrin (204.0-354.0) mg/dL Ferritin (10.0-291.0) ng/mL AST 41 H (14-36) U/L Lactate Dehydrogenase (313-618) U/L Total Protein 4.6 L (6.3-8.2) g/dL Albumin 2.5 L (3.5-5.0) g/dL Vitamin D 25-Hydroxy (30.0-100.0) ng/mL Microbiology - Last 24 Hours (Table) 12/25/21 15:15 Blood Culture - Preliminary Blood No Growth after 72 hours 12/25/21 14:57 Blood Culture - Preliminary Blood No Growth after 72 hours
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
[2021-12-29 11:40] LABS: Glucose,Whole Blood 69 mg/dL (70-110)
[2021-12-29 12:03] LABS: Glucose,Whole Blood 87 mg/dL (70-110)
--- NOTE | 2021-12-29 12:49 | P.PN ---
Subjective Progress Note Date: 12/29/21 Patient has a known history of hypertension dyslipidemia diabetes sleep apnea and morbid obesity presented to the hospital with mental status change and had an abnormal EKG raising the possibility of an anterior wall myocardial infarction. Patient did not have any chest pain shortness of breath and was not in heart failure. Her EKG showed sinus rhythm with left axis deviation and poor R wave progression and some ST segment elevations from V1 to V4. EKG changes were new when compared to old EKG from several years ago. An echocardiogram on this admission did not reveal any LV systolic dysfunction or wall motion abnormalities. Her mild troponin elevation probably related to her diabetic ketoacidosis. Patient is examined resting comfortably today in bed. She remains free from chest pain or increased shortness of breath overnight and remained stable and well-controlled area potassium is supplemented today. Platelets today are 84. Will continue with current cardiac medications. Patient is awaiting approval for rehab, hopefully discharge in the next 24 hours. Will follow patient had an as-needed basis. Objective - Vital Signs Vital signs: Vital Signs Temp 97.4 F L 12/29/21 12:03 Pulse 73 12/29/21 12:03 Resp 18 12/29/21 12:03 BP 103/65 12/29/21 12:03 Pulse Ox 95 12/29/21 12:03 FiO2 Intake & Output 12/28/21 12/29/21 12/29/21 18:59 06:59 18:59 Intake Total 1600 585 Output Total 250 Balance 1350 585 Intake: IV 10 Invasive Line 1 10 Intake, IV Titration 750 100 Amount Sodium Chloride 0.9% 1, 600 000 ml @ 50 mls/hr IV . Q20H JEREL Rx#:[id number] cefTRIAXone 2 gm In 50 Sodium Chloride 0.9% 50 ml @ 100 mls/hr IVPB Q24HR JEREL Rx#:[id number] metroNIDAZOLE-NS PMX 500 100 100 mg In Saline 1 100ml.bag @ 100 mls/hr IVPB Q8HR JEREL Rx#:[id number] Oral 840 485 Output: Urine 250 Other: Voiding Method Indwelling Catheter Indwelling Catheter Indwelling Catheter # Bowel Movements 1 - Exam PHYSICAL EXAM: VITAL SIGNS: Reviewed. GENERAL: Well-developed in no acute distress. HEENT: Head is normocephalic. Pupils are equal, round. Sclerae anicteric. Mucous membranes of the mouth are moist. NECK: Supple. No JVD or thyromegaly RESPIRATORY: Respirations even and unlabored. Lungs diminished to auscultation bilaterally. CARDIO: Regular rate and rhythm. S1 and S2 heard. No murmur or gallops. EXTREMITIES: Normal range of motion. No clubbing or cyanosis. Peripheral pulses intact. Negative for bilateral lower extremity edema NEURO: Orientated to person, time, mood is appropriate - Labs CBC & Chem 7: 12/29/21 05:01 12/29/21 05:01 Labs: Abnormal Lab Results - Last 24 Hours (Table) 12/28/21 12/28/21 12/28/21 Range/Units 04:50 11:53 11:53 Plt Count 91 L (150-450) k/uL PT 21.9 H (9.0-12.0) sec INR 2.2 H (<1.2) Sodium (137-145) mmol/L Potassium (3.5-5.1) mmol/L Glucose (74-99) mg/dL POC Glucose (mg/dL) (70-110) mg/dL Calcium (8.4-10.2) mg/dL Magnesium (1.6-2.3) mg/dL TIBC (228-460) ug/dL Transferrin (204.0-354.0) mg/dL Ferritin 381.0 H (10.0-291.0) ng/mL AST (14-36) U/L Total Protein (6.3-8.2) g/dL Albumin (3.5-5.0) g/dL Vitamin D 25-Hydroxy 5.3 L (30.0-100.0) ng/mL 12/28/21 12/28/21 12/29/21 Range/Units 11:53 16:35 05:01 Plt Count 84 L (150-450) k/uL PT (9.0-12.0) sec INR (<1.2) Sodium (137-145) mmol/L Potassium (3.5-5.1) mmol/L Glucose (74-99) mg/dL POC Glucose (mg/dL) 134 H (70-110) mg/dL Calcium (8.4-10.2) mg/dL Magnesium (1.6-2.3) mg/dL TIBC 181 L (228-460) ug/dL Transferrin 129.0 L (204.0-354.0) mg/dL Ferritin (10.0-291.0) ng/mL AST (14-36) U/L Total Protein (6.3-8.2) g/dL Albumin (3.5-5.0) g/dL Vitamin D 25-Hydroxy (30.0-100.0) ng/mL 12/29/21 12/29/21 Range/Units 05:01 11:39 Plt Count (150-450) k/uL PT (9.0-12.0) sec INR (<1.2) Sodium 136 L (137-145) mmol/L Potassium 3.1 L (3.5-5.1) mmol/L Glucose 100 H (74-99) mg/dL POC Glucose (mg/dL) 69 L (70-110) mg/dL Calcium 7.6 L (8.4-10.2) mg/dL Magnesium 1.5 L (1.6-2.3) mg/dL TIBC (228-460) ug/dL Transferrin (204.0-354.0) mg/dL Ferritin (10.0-291.0) ng/mL AST 41 H (14-36) U/L Total Protein 4.6 L (6.3-8.2) g/dL Albumin 2.5 L (3.5-5.0) g/dL Vitamin D 25-Hydroxy (30.0-100.0) ng/mL Microbiology - Last 24 Hours (Table) 12/25/21 15:15 Blood Culture - Preliminary Blood No Growth after 72 hours 12/25/21 14:57 Blood Culture - Preliminary Blood No Growth after 72 hours Assessment and Plan Assessment: Elevated troponin secondary to diabetic ketoacidosis and renal insufficiency Acute coronary syndrome ruled out due to normal LV function without wall motion abnormalities Diabetic ketoacidosis Hypokalemia Plan: Supplement potassium Continue with all current cardiac medications Continue with telemetry monitoring Recommended further workup outpatient, Lexiscan after discharge Will follow patient on an as-needed basis Further recommendations based on clinical course The above impression and plan of care have been discussed and directed by the signing physician. Viridiana Peña, nurse practitioner, acting as scribe for signing physician.
[2021-12-29 16:39] LABS: Glucose,Whole Blood 135 mg/dL (70-110)
[2021-12-29] MEDS: metroNIDAZOLE 500 MG TAB PO SCH ×2 (17:11→21:59)
[2021-12-29 20:40] LABS: Glucose,Whole Blood 125 mg/dL (70-110)
[2021-12-29] MEDS: LORATADINE 10 MG TAB PO SCH (21:59)
[2021-12-29] MEDS: METOCLOPRAMIDE 10 MG TAB PO SCH (21:59)
[2021-12-29] MEDS: PANTOPRAZOLE 40 MG TABLET PO SCH (22:00)
[2021-12-29] MEDS: ONDANSETRON 4 MG/2 ML VIAL IVP PRN (22:09)
[2021-12-29] MEDS: CHOLECALCIFEROL 125 MCG (5000 IU) TABLET PO SCH (22:28)
[2021-12-29] MEDS: INSULIN DETEMIR (LEVEMIR) 100 UNIT/ML SYR SQ SCH (23:30)
[2021-12-30] MEDS: HEPARIN SODIUM,PORCINE/PF 5,000 UNIT/0.5 ML SYRINGE SQ SCH ×3 (00:22→15:53)
[2021-12-30] MEDS: MORPHINE SULFATE ER 60 MG TABLET PO SCH ×3 (01:23→20:55)
[2021-12-30] MEDS: oxyCODONE-APAP 10-325MG 1 EACH TAB PO PRN (03:57)
[2021-12-30 06:32] LABS: Glucose,Whole Blood 196 mg/dL (70-110)
[2021-12-30] MEDS: INSULIN ASPART (NovoLOG) 100 UNIT/ML VIAL SQ SCH ×3 (06:39→17:35)
[2021-12-30] MEDS: LEVOTHYROXINE 100 MCG TAB PO SCH (06:39)
[2021-12-30] MEDS: OXYBUTYNIN 15 MG TAB.ER.24 PO SCH ×2 (06:40→17:35)
[2021-12-30] MEDS: DOCUSATE 100 MG CAP PO SCH (06:47)
--- NOTE | 2021-12-30 07:19 | P.PN ---
Subjective Progress Note Date: 12/29/21 Principal diagnosis: Fever Patient is a 53 female presenting to the hospital for evaluation of weakness fatigue symptoms for about a week and did have low-grade fever of 1.9 on presentation hospital. Initial Workup including CT of abdominal pelvis has been negative. On today's evaluation that is 12/29/2021, the patient continues to be afebrile, the patient is breathing comfortably on room air. the patient denies having any chest pain or shortness of breath or cough no nausea no vomiting no abdominal pain no diarrhea overall feeling better Objective - Vital Signs Vital signs: Vital Signs Temp 97.4 F L 12/29/21 12:03 Pulse 73 12/29/21 12:03 Resp 18 12/29/21 12:03 BP 103/65 12/29/21 12:03 Pulse Ox 95 12/29/21 12:03 FiO2 Intake & Output 12/28/21 12/29/21 12/29/21 18:59 06:59 18:59 Intake Total 1600 585 315 Output Total 250 Balance 1350 585 315 Intake: IV 10 140 .9@20 140 Invasive Line 1 10 Intake, IV Titration 750 100 175 Amount Sodium Chloride 0.9% 1, 600 25 000 ml @ 50 mls/hr IV . Q20H JEREL Rx#:[id number] cefTRIAXone 2 gm In 50 50 Sodium Chloride 0.9% 50 ml @ 100 mls/hr IVPB Q24HR JEREL Rx#:[id number] metroNIDAZOLE-NS PMX 500 100 100 100 mg In Saline 1 100ml.bag @ 100 mls/hr IVPB Q8HR JEREL Rx#:[id number] Oral 840 485 Output: Urine 250 Other: Voiding Method Indwelling Catheter Indwelling Catheter Indwelling Catheter # Bowel Movements 1 - Exam GENERAL DESCRIPTION: Middle-age female male lying in bed in no distress RESPIRATORY SYSTEM: Unlabored breathing , decreased breath sounds at bases HEART: S1 S2 regular rate and rhythm , ABDOMEN: Soft , no tenderness EXTREMITIES: Left lower extremity some superficial ulceration with minimal redness, right posterior thigh and gluteal area with no swelling no redness - Labs CBC & Chem 7: 12/29/21 05:01 12/29/21 05:01 Labs: Abnormal Lab Results - Last 24 Hours (Table) 12/28/21 12/28/21 12/28/21 Range/Units 11:53 11:53 16:35 Plt Count (150-450) k/uL Sodium (137-145) mmol/L Potassium (3.5-5.1) mmol/L Glucose (74-99) mg/dL POC Glucose (mg/dL) 134 H (70-110) mg/dL Calcium (8.4-10.2) mg/dL Magnesium (1.6-2.3) mg/dL TIBC 181 L (228-460) ug/dL Transferrin 129.0 L (204.0-354.0) mg/dL Ferritin 381.0 H (10.0-291.0) ng/mL AST (14-36) U/L Total Protein (6.3-8.2) g/dL Albumin (3.5-5.0) g/dL Vitamin D 25-Hydroxy 5.3 L (30.0-100.0) ng/mL 12/29/21 12/29/21 12/29/21 Range/Units 05:01 05:01 11:39 Plt Count 84 L (150-450) k/uL Sodium 136 L (137-145) mmol/L Potassium 3.1 L (3.5-5.1) mmol/L Glucose 100 H (74-99) mg/dL POC Glucose (mg/dL) 69 L (70-110) mg/dL Calcium 7.6 L (8.4-10.2) mg/dL Magnesium 1.5 L (1.6-2.3) mg/dL TIBC (228-460) ug/dL Transferrin (204.0-354.0) mg/dL Ferritin (10.0-291.0) ng/mL AST 41 H (14-36) U/L Total Protein 4.6 L (6.3-8.2) g/dL Albumin 2.5 L (3.5-5.0) g/dL Vitamin D 25-Hydroxy (30.0-100.0) ng/mL Microbiology - Last 24 Hours (Table) 12/25/21 15:15 Blood Culture - Preliminary Blood No Growth after 72 hours 12/25/21 14:57 Blood Culture - Preliminary Blood No Growth after 72 hours Assessment and Plan (1) Fever Current Visit: Yes Status: Acute Code(s): R50.9 - FEVER, UNSPECIFIED SNOMED Code(s): 506832096 Plan: 1patient presented to hospital with generalized weakness did have a fever in this patient did have a subsequent visualization of the left leg and a stage II wound to the sacral area however the nursing staff mention there was no evidence of any redness or drainage, in this patient with negative UA CT abdominal pelvis did not show any acute abnormality chest x-ray was negative with a question of possible cellulitis etiology of her fever. 2patient with multiple antibiotic allergies that would limit the number of antibiotics safe to use. 3patient has shown clinical improvement the patient white count has normalized cultures are negative so far, patient clinically improved with Rocephin 2 g daily and will finish therapy with oral Ceftin on discharge 4local wound care to left leg wound with Aquacel silver dressing change every 48 hour. Time with Patient: Less than 30
[2021-12-30 10:10] LABS: INR 1.7 (<1.2)
--- NOTE | 2021-12-30 10:10 | P.PN ---
Subjective Patient is seen in follow-up for acute kidney injury. Renal function back to baseline. Martin catheter removed this morning. Did void on her own. Oral intake.. No active complaints. Vital signs are stable. General: Awake. No acute distress. HEENT: Head exam is unremarkable. LUNGS: Breath sounds decreased. HEART: Rate and Rhythm are regular. ABDOMEN: Soft, no distention. Obese. EXTREMITITES: No edema. Objective - Vital Signs Vital signs: Vital Signs Temp 98.3 F 12/30/21 00:00 Pulse 86 12/30/21 03:54 Resp 16 12/30/21 03:54 BP 96/59 12/30/21 03:54 Pulse Ox 92 L 12/30/21 03:54 FiO2 Intake & Output 12/29/21 12/30/21 12/30/21 18:59 06:59 18:59 Intake Total 445 350 222 Output Total 450 725 50 Balance -5 -375 172 Intake: IV 150 .9@20 140 Invasive Line 3 10 Intake, IV Titration 175 Amount Sodium Chloride 0.9% 1, 25 000 ml @ 50 mls/hr IV . Q20H JEREL Rx#:[id number] cefTRIAXone 2 gm In 50 Sodium Chloride 0.9% 50 ml @ 100 mls/hr IVPB Q24HR JEREL Rx#:[id number] metroNIDAZOLE-NS PMX 500 100 mg In Saline 1 100ml.bag @ 100 mls/hr IVPB Q8HR JEREL Rx#:[id number] Oral 120 350 222 Output: Urine 450 325 50 Stool 400 Other: Voiding Method Indwelling Catheter Indwelling Catheter # Bowel Movements 1 1 - Labs CBC & Chem 7: 12/29/21 05:01 12/29/21 05:01 Labs: Abnormal Lab Results - Last 24 Hours (Table) 12/28/21 12/29/21 12/29/21 Range/Units 04:50 11:39 16:37 Pathologist Review See comment A POC Glucose (mg/dL) 69 L 135 H (70-110) mg/dL 12/29/21 12/30/21 Range/Units 20:38 06:30 Pathologist Review POC Glucose (mg/dL) 125 H 196 H (70-110) mg/dL Microbiology - Last 24 Hours (Table) 12/25/21 15:15 Blood Culture - Preliminary Blood No Growth after 96 hours 12/25/21 14:57 Blood Culture - Preliminary Blood No Growth after 96 hours Assessment and Plan Plan: Assessment: 1. Acute kidney injury secondary to ATN secondary to hypotension and urinary retention. Renal function improved. No hydronephrosis noted on kidney ultrasound. 2. Urinary retention. Martin catheter removed. Urology following. 3. DKA status post insulin drip. 4. 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 Proteinuria noted on UA. Further workup outpatient. 5. Hypophosphatemia from poor intake maintained on Neutra-Phos. 6. Hypokalemia from poor intake. Replaced. 7. Hypomagnesemia from poor intake. Plan: Encourage oral intake. Follow-up morning labs. Avoid nephrotoxins. Ejection fraction normal. Check a.m. cortisol level. Follow-up outpatient in 1-2 weeks post discharge.
[2021-12-30] MEDS: POTAS-SOD-PHOS 278-164-250 MG 1 EACH PACKET PO SCH ×3 (10:12→20:58)
[2021-12-30] MEDS: tiZANidine 4 MG TAB PO SCH ×2 (10:12→21:00)
[2021-12-30] MEDS: busPIRone HCl 10 MG TAB PO SCH ×2 (10:12→20:57)
[2021-12-30] MEDS: TOPIRAMATE 100 MG TAB PO SCH ×2 (10:12→21:00)
[2021-12-30] MEDS: SERTRALINE 100 MG TAB PO SCH ×2 (10:13→20:59)
[2021-12-30] MEDS: CHOLECALCIFEROL 125 MCG (5000 IU) TABLET PO SCH (10:13)
[2021-12-30] MEDS: FOLIC ACID 1 MG TAB PO SCH (10:13)
[2021-12-30] MEDS: metroNIDAZOLE 500 MG TAB PO SCH ×3 (10:13→20:55)
[2021-12-30] MEDS: NYSTATIN 100,000 UNIT/GM POWD 15 GM TOPICAL SCH ×2 (10:14→20:57)
[2021-12-30] MEDS: HYDROPHILIC CREAM 180 GM TUBE TOPICAL SCH (10:14)
[2021-12-30 10:17] LABS: Albumin 2.6 g/dL (3.5-5.0); Calcium 7.8 mg/dL (8.4-10.2); Magnesium 1.4 mg/dL (1.6-2.3); Potassium 4.1 mmol/L (3.5-5.1); Total Bilirubin 0.4 mg/dL (0.2-1.3); Total Protein 4.6 g/dL (6.3-8.2)
[2021-12-30 10:28] LABS: Phosphorus 1.5 mg/dL (2.5-4.5)
[2021-12-30] MEDS: Dextroamphetamine/Amphetamine [Adderall] PO SCH ×2 (11:21→20:58)
[2021-12-30 11:42] LABS: Glucose,Whole Blood 127 mg/dL (70-110)
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
[2021-12-30] MEDS ORDERED: Phosphorus Replacement Protoco 1 EACH MISC MISCELLANE PRN (12:58)
[2021-12-30] MEDS: POTASSIUM PHOSPHATE 10 MMOL in SODIUM CHLORIDE 0.9% 250 ML IV SCH ×2 (13:53→15:54)
[2021-12-30] MEDS: MAGNESIUM SULFATE-D5W PMX 1 GM in DEXTROSE/WATER 1 100ML.BAG IVPB SCH ×3 (13:54→19:09)
--- NOTE | 2021-12-30 16:24 | P.PN ---
Subjective Progress Note Date: 12/29/21 Principal diagnosis: Thrombocytopenia Coagulopathy INR 2.2 - Rec Vitamin K and recheck in am. Vitamin D marked low at 5 - Supplementation ordered Objective - Vital Signs Vital signs: Vital Signs Temp 97.9 F 12/29/21 17:10 Pulse 85 12/29/21 17:10 Resp 18 12/29/21 17:10 BP 100/66 12/29/21 17:10 Pulse Ox 95 12/29/21 17:10 FiO2 Intake & Output 12/29/21 12/29/21 12/30/21 06:59 18:59 06:59 Intake Total 585 445 Output Total 450 Balance 585 -5 Intake: IV 150 .9@20 140 Invasive Line 3 10 Intake, IV Titration 100 175 Amount Sodium Chloride 0.9% 1, 25 000 ml @ 50 mls/hr IV . Q20H JEREL Rx#:[id number] cefTRIAXone 2 gm In 50 Sodium Chloride 0.9% 50 ml @ 100 mls/hr IVPB Q24HR JEREL Rx#:[id number] metroNIDAZOLE-NS PMX 500 100 100 mg In Saline 1 100ml.bag @ 100 mls/hr IVPB Q8HR JEREL Rx#:[id number] Oral 485 120 Output: Urine 450 Other: Voiding Method Indwelling Catheter Indwelling Catheter # Bowel Movements 1 1 - Exam - Constitutional General appearance: cooperative - EENT Eyes: EOMI ENT: NA/AT - Neck Neck: normal ROM - Cardiovascular Rhythm: regularly irregular - Gastrointestinal General gastrointestinal: soft - Integumentary Areas of non -healing wounds - Musculoskeletal Musculoskeletal: generalized weakness - Psychiatric Psychiatric: A&O x's 3 - Labs CBC & Chem 7: 12/29/21 05:01 12/30/21 08:52 Labs: Abnormal Lab Results - Last 24 Hours (Table) 12/29/21 12/29/21 12/29/21 Range/Units 05:01 05:01 11:39 Plt Count 84 L (150-450) k/uL Sodium 136 L (137-145) mmol/L Potassium 3.1 L (3.5-5.1) mmol/L Glucose 100 H (74-99) mg/dL POC Glucose (mg/dL) 69 L (70-110) mg/dL Calcium 7.6 L (8.4-10.2) mg/dL Magnesium 1.5 L (1.6-2.3) mg/dL AST 41 H (14-36) U/L Total Protein 4.6 L (6.3-8.2) g/dL Albumin 2.5 L (3.5-5.0) g/dL 12/29/21 Range/Units 16:37 Plt Count (150-450) k/uL Sodium (137-145) mmol/L Potassium (3.5-5.1) mmol/L Glucose (74-99) mg/dL POC Glucose (mg/dL) 135 H (70-110) mg/dL Calcium (8.4-10.2) mg/dL Magnesium (1.6-2.3) mg/dL AST (14-36) U/L Total Protein (6.3-8.2) g/dL Albumin (3.5-5.0) g/dL Microbiology - Last 24 Hours (Table) 12/25/21 15:15 Blood Culture - Preliminary Blood No Growth after 96 hours 12/25/21 14:57 Blood Culture - Preliminary Blood No Growth after 96 hours Assessment and Plan (1) Thrombocytopenia Narrative/Plan: In trending her platelets it does appear she has a baseline in low 100s, she is on multiple medications and multiple diagnosis's that could relate to chronic inflammatory state. This in picture of more recent acute inflammation, antibiotics and potential infection her trendding thrombocytopenia is most likely related to chronic stress on bone marrow. Given her renal insuffciency and length of decreased platelets other causes should be further worked up. - INR was also elevated without evidence of anticoagulation, recheck and assess for DIC - If INR >1.5 would treat vitamin K - 2.2 last and recheck for am - If fibrinogen less than 100 would proceed with cryoprecipitate - Platelets 89K today, which is considered safe range. Continue prophylactic and daily monitoring. If less than 10K transfuse Current Visit: Yes Status: Acute Code(s): D69.6 - THROMBOCYTOPENIA, UNSPECIFIED SNOMED Code(s): 138201759 (2) Non-healing wound Current Visit: Yes Status: Acute Code(s): LAR0940 - SNOMED Code(s): 563444097 (3) Renal insufficiency Narrative/Plan: COnsult for nephology Current Visit: Yes Status: Acute Code(s): N28.9 - DISORDER OF KIDNEY AND URETER, UNSPECIFIED SNOMED Code(s): 740821734 (4) Morbid obesity Current Visit: No Status: Acute Code(s): E66.01 - MORBID (SEVERE) OBESITY DUE TO EXCESS CALORIES SNOMED Code(s): 222980258 (5) Vitamin D deficiency Narrative/Plan: Vitamin D3 5000 ordered tsh normal awaiting further autoimmune work-up Current Visit: Yes Status: Acute Code(s): E55.9 - VITAMIN D DEFICIENCY, UNSPECIFIED SNOMED Code(s): 25568727
--- NOTE | 2021-12-30 16:26 | P.PN ---
Subjective Progress Note Date: 12/30/21 Principal diagnosis: Thrombocytopenia CBC ordered for today, please continue daily monitoring. Objective - Vital Signs Vital signs: Vital Signs Temp 98.5 F 12/30/21 09:50 Pulse 90 12/30/21 09:50 Resp 17 12/30/21 09:50 BP 106/71 12/30/21 09:50 Pulse Ox 95 12/30/21 09:50 FiO2 Intake & Output 12/29/21 12/30/21 12/30/21 18:59 06:59 18:59 Intake Total 445 350 444 Output Total 450 725 50 Balance -5 -375 394 Weight 125 kg Intake: IV 150 .9@20 140 Invasive Line 3 10 Intake, IV Titration 175 Amount Sodium Chloride 0.9% 1, 25 000 ml @ 50 mls/hr IV . Q20H JEREL Rx#:[id number] cefTRIAXone 2 gm In 50 Sodium Chloride 0.9% 50 ml @ 100 mls/hr IVPB Q24HR JEREL Rx#:[id number] metroNIDAZOLE-NS PMX 500 100 mg In Saline 1 100ml.bag @ 100 mls/hr IVPB Q8HR JEREL Rx#:[id number] Oral 120 350 444 Output: Urine 450 325 50 Stool 400 Other: Voiding Method Indwelling Catheter Indwelling Catheter # Bowel Movements 1 1 - Exam - Constitutional General appearance: cooperative - EENT Eyes: EOMI ENT: NA/AT - Neck Neck: normal ROM - Cardiovascular Rhythm: regularly irregular - Gastrointestinal General gastrointestinal: soft - Integumentary Areas of non -healing wounds - Musculoskeletal Musculoskeletal: generalized weakness - Psychiatric Psychiatric: A&O x's 3 - Labs CBC & Chem 7: 12/29/21 05:01 12/30/21 08:52 Labs: Abnormal Lab Results - Last 24 Hours (Table) 12/28/21 12/29/21 12/29/21 Range/Units 04:50 16:37 20:38 Pathologist Review See comment A PT (9.0-12.0) sec INR (<1.2) Sodium (137-145) mmol/L Carbon Dioxide (22-30) mmol/L Glucose (74-99) mg/dL POC Glucose (mg/dL) 135 H 125 H (70-110) mg/dL Calcium (8.4-10.2) mg/dL Phosphorus (2.5-4.5) mg/dL Magnesium (1.6-2.3) mg/dL Total Protein (6.3-8.2) g/dL Albumin (3.5-5.0) g/dL 12/30/21 12/30/21 12/30/21 Range/Units 06:30 08:52 08:52 Pathologist Review PT 17.0 H (9.0-12.0) sec INR 1.7 H (<1.2) Sodium 135 L (137-145) mmol/L Carbon Dioxide 31 H (22-30) mmol/L Glucose 152 H (74-99) mg/dL POC Glucose (mg/dL) 196 H (70-110) mg/dL Calcium 7.8 L (8.4-10.2) mg/dL Phosphorus 1.5 L (2.5-4.5) mg/dL Magnesium 1.4 L (1.6-2.3) mg/dL Total Protein 4.6 L (6.3-8.2) g/dL Albumin 2.6 L (3.5-5.0) g/dL 12/30/21 Range/Units 11:37 Pathologist Review PT (9.0-12.0) sec INR (<1.2) Sodium (137-145) mmol/L Carbon Dioxide (22-30) mmol/L Glucose (74-99) mg/dL POC Glucose (mg/dL) 127 H (70-110) mg/dL Calcium (8.4-10.2) mg/dL Phosphorus (2.5-4.5) mg/dL Magnesium (1.6-2.3) mg/dL Total Protein (6.3-8.2) g/dL Albumin (3.5-5.0) g/dL Microbiology - Last 24 Hours (Table) 12/25/21 15:15 Blood Culture - Preliminary Blood No Growth after 96 hours 12/25/21 14:57 Blood Culture - Preliminary Blood No Growth after 96 hours Assessment and Plan (1) Thrombocytopenia Narrative/Plan: In trending her platelets it does appear she has a baseline in low 100s, she is on multiple medications and multiple diagnosis's that could relate to chronic inflammatory state. This in picture of more recent acute inflammation, antibiotics and potential infection her trendding thrombocytopenia is most likely related to chronic stress on bone marrow. Given her renal insuffciency and length of decreased platelets other causes should be further worked up. - INR was also elevated without evidence of anticoagulation, recheck and assess for DIC - If INR >1.5 would treat vitamin K - 2.2 last and recheck for am - If fibrinogen less than 100 would proceed with cryoprecipitate - Platelets 89K today, which is considered safe range. Continue prophylactic and daily monitoring. If less than 10K transfuse Current Visit: Yes Status: Acute Code(s): D69.6 - THROMBOCYTOPENIA, UNSPECIFIED SNOMED Code(s): 478741752 (2) Non-healing wound Current Visit: Yes Status: Acute Code(s): [id number] - SNOMED Code(s): 745482200 (3) Renal insufficiency Narrative/Plan: COnsult for nephology Current Visit: Yes Status: Acute Code(s): N28.9 - DISORDER OF KIDNEY AND URETER, UNSPECIFIED SNOMED Code(s): 449519812 (4) Morbid obesity Current Visit: No Status: Acute Code(s): E66.01 - MORBID (SEVERE) OBESITY DUE TO EXCESS CALORIES SNOMED Code(s): 111035588 (5) Vitamin D deficiency Narrative/Plan: Vitamin D3 5000 ordered tsh normal awaiting further autoimmune work-up Vitamin D 5.3 Current Visit: Yes Status: Acute Code(s): E55.9 - VITAMIN D DEFICIENCY, UNSPECIFIED SNOMED Code(s): 61864424
[2021-12-30 16:27] LABS: Glucose,Whole Blood 195 mg/dL (70-110)
[2021-12-30 16:58] LABS: Basophils # (A) 0.1 k/uL (0-0.2); Basophils % (A) 1 %; Eosinophils # (A) 0.1 k/uL (0-0.7); Eosinophils % (A) 2 %; HCT 41.3 % (34.0-46.0); HGB 13.1 gm/dL (11.4-16.0); Hypochromasia Moderate; Lymphocytes # (A) 1.4 k/uL (1.0-4.8); Lymphocytes % (A) 20 %; MCH 30.6 pg (25.0-35.0); MCHC 31.6 g/dL (31.0-37.0); MCV 96.6 fL (80.0-100.0); Mean Platelet Volume 10.1; Monocytes # (A) 0.4 k/uL (0-1.0); Monocytes % (A) 6 %; Neutrophils # (A) 5.1 k/uL (1.3-7.7); Neutrophils % (A) 70 %; RBC 4.28 m/uL (3.80-5.40); RDW 15.5 % (11.5-15.5); WBC 7.2 k/uL (3.8-10.6)
[2021-12-30 17:07] LABS: Platelet Count 73 k/uL (150-450)
[2021-12-30 20:37] LABS: Glucose,Whole Blood 127 mg/dL (70-110)
[2021-12-30] MEDS: INSULIN DETEMIR (LEVEMIR) 100 UNIT/ML SYR SQ SCH (20:55)
[2021-12-30] MEDS: METOCLOPRAMIDE 10 MG TAB PO SCH (20:57)
[2021-12-30] MEDS: LORATADINE 10 MG TAB PO SCH (20:57)
[2021-12-30] MEDS: PANTOPRAZOLE 40 MG TABLET PO SCH (20:57)
[2021-12-31] MEDS: HEPARIN SODIUM,PORCINE/PF 5,000 UNIT/0.5 ML SYRINGE SQ SCH ×2 (00:51→08:20)
[2021-12-31 03:18] VITALS: RESP 14
[2021-12-31 05:20] LABS: Basophils % (A) 1 %; Eosinophils # (A) 0.1 k/uL (0-0.7); Eosinophils % (A) 2 %; HCT 44.3 % (34.0-46.0); HGB 14.1 gm/dL (11.4-16.0); Hypochromasia Slight; Lymphocytes # (A) 1.4 k/uL (1.0-4.8); Lymphocytes % (A) 18 %; MCH 30.7 pg (25.0-35.0); MCHC 31.8 g/dL (31.0-37.0); MCV 96.6 fL (80.0-100.0); Mean Platelet Volume 10.6; Monocytes # (A) 0.4 k/uL (0-1.0); Monocytes % (A) 5 %; Neutrophils # (A) 5.8 k/uL (1.3-7.7); Neutrophils % (A) 73 %; RBC 4.59 m/uL (3.80-5.40)
[2021-12-31 05:32] LABS: Platelet Count 88 k/uL (150-450)
[2021-12-31 05:38] LABS: Magnesium 2.1 mg/dL (1.6-2.3); Phosphorus 2.3 mg/dL (2.5-4.5)
[2021-12-31 05:49] LABS: African American GFR (CKD) >90 (>60 ml/min/1.73 sqM); Anion Gap 5 mmol/L; Blood Urea Nitrogen 9 mg/dL (7-17); Calcium 7.7 mg/dL (8.4-10.2); Carbon Dioxide 27 mmol/L (22-30); Chloride 100 mmol/L (98-107); Glucose 141 mg/dL (74-99); Non-African American GFR(CKD) 84 (>60 ml/min/1.73 sqM); Potassium 3.6 mmol/L (3.5-5.1); Sodium 132 mmol/L (137-145)
[2021-12-31] MEDS: LEVOTHYROXINE 100 MCG TAB PO SCH (06:12)
[2021-12-31 06:55] LABS: Glucose,Whole Blood 113 mg/dL (70-110)
--- NOTE | 2021-12-31 07:35 | P.PN ---
Subjective Progress Note Date: 12/30/21 Principal diagnosis: Fever Patient is a 53 female presenting to the hospital for evaluation of weakness fatigue symptoms for about a week and did have low-grade fever of 1.9 on presentation hospital. Initial Workup including CT of abdominal pelvis has been negative. On today's evaluation that is 12/30/2021, the patient denies any fever or chills, the patient is breathing comfortably on room air. the patient denies chest pain or shortness of breath or cough, the patient denies nausea no vomiting no abdominal pain no diarrhea Objective - Vital Signs Vital signs: Vital Signs Temp 98.3 F 12/30/21 00:00 Pulse 86 12/30/21 03:54 Resp 16 12/30/21 03:54 BP 96/59 12/30/21 03:54 Pulse Ox 92 L 12/30/21 03:54 FiO2 Intake & Output 12/29/21 12/30/21 12/30/21 18:59 06:59 18:59 Intake Total 445 350 222 Output Total 450 725 50 Balance -5 -375 172 Intake: IV 150 .9@20 140 Invasive Line 3 10 Intake, IV Titration 175 Amount Sodium Chloride 0.9% 1, 25 000 ml @ 50 mls/hr IV . Q20H JEREL Rx#:[id number] cefTRIAXone 2 gm In 50 Sodium Chloride 0.9% 50 ml @ 100 mls/hr IVPB Q24HR JEREL Rx#:[id number] metroNIDAZOLE-NS PMX 500 100 mg In Saline 1 100ml.bag @ 100 mls/hr IVPB Q8HR JEREL Rx#:[id number] Oral 120 350 222 Output: Urine 450 325 50 Stool 400 Other: Voiding Method Indwelling Catheter Indwelling Catheter # Bowel Movements 1 1 - Exam GENERAL DESCRIPTION: Middle-age female male lying in bed in no distress RESPIRATORY SYSTEM: Unlabored breathing , decreased breath sounds at bases HEART: S1 S2 regular rate and rhythm , ABDOMEN: Soft , no tenderness EXTREMITIES: Left lower extremity some superficial ulceration with minimal redness, right posterior thigh and gluteal area with no swelling no redness - Labs CBC & Chem 7: 12/31/21 04:12 12/31/21 04:12 Labs: Abnormal Lab Results - Last 24 Hours (Table) 12/28/21 12/29/21 12/29/21 Range/Units 04:50 11:39 16:37 Pathologist Review See comment A POC Glucose (mg/dL) 69 L 135 H (70-110) mg/dL 12/29/21 12/30/21 Range/Units 20:38 06:30 Pathologist Review POC Glucose (mg/dL) 125 H 196 H (70-110) mg/dL Microbiology - Last 24 Hours (Table) 12/25/21 15:15 Blood Culture - Preliminary Blood No Growth after 96 hours 12/25/21 14:57 Blood Culture - Preliminary Blood No Growth after 96 hours Assessment and Plan (1) Fever Current Visit: Yes Status: Acute Code(s): R50.9 - FEVER, UNSPECIFIED SNOMED Code(s): 477295246 Plan: 1patient presented to hospital with generalized weakness did have a fever in this patient did have a subsequent visualization of the left leg and a stage II wound to the sacral area however the nursing staff mention there was no evidence of any redness or drainage, in this patient with negative UA CT abdominal pelvis did not show any acute abnormality chest x-ray was negative with a question of possible cellulitis etiology of her fever. 2 local wound care to left leg wound with Aquacel silver dressing change every 48 hour. 3patient has shown clinical improvement the patient white count has normalized cultures are negative so far, patient to continue with Rocephin 2 g daily and plan to finish therapy with oral Ceftin on discharge Time with Patient: Less than 30
[2021-12-31 07:57] VITALS: BP 107/69; PULSE 91; TEMP 98.3
[2021-12-31] MEDS: INSULIN ASPART (NovoLOG) 100 UNIT/ML VIAL SQ SCH (08:22)
[2021-12-31] MEDS: TOPIRAMATE 100 MG TAB PO SCH (08:22)
[2021-12-31] MEDS: busPIRone HCl 10 MG TAB PO SCH (08:22)
[2021-12-31] MEDS: CHOLECALCIFEROL 125 MCG (5000 IU) TABLET PO SCH (08:22)
[2021-12-31] MEDS: SERTRALINE 100 MG TAB PO SCH (08:22)
[2021-12-31] MEDS: metroNIDAZOLE 500 MG TAB PO SCH (08:22)
[2021-12-31] MEDS: FOLIC ACID 1 MG TAB PO SCH (08:22)
[2021-12-31] MEDS: DOCUSATE 100 MG CAP PO SCH (08:23)
[2021-12-31] MEDS: POTAS-SOD-PHOS 278-164-250 MG 1 EACH PACKET PO SCH (08:23)
[2021-12-31] MEDS: OXYBUTYNIN 15 MG TAB.ER.24 PO SCH (08:23)
[2021-12-31] MEDS: Dextroamphetamine/Amphetamine [Adderall] PO SCH (08:24)
[2021-12-31] MEDS: HYDROPHILIC CREAM 180 GM TUBE TOPICAL SCH (08:25)
[2021-12-31] MEDS: NYSTATIN 100,000 UNIT/GM POWD 15 GM TOPICAL SCH (08:25)
[2021-12-31] MEDS: ONDANSETRON 4 MG/2 ML VIAL IVP PRN (08:37)
[2021-12-31] MEDS: tiZANidine 4 MG TAB PO SCH (08:38)
[2021-12-31] MEDS: MORPHINE SULFATE ER 60 MG TABLET PO SCH (08:57)
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
--- NOTE | 2021-12-31 09:41 | P.DS ---
Providers Date of admission: 12/25/21 16:33 Expected date of discharge: 12/31/21 Attending physician: Viktoria Candelario MD Consults: 12/25/21 17:31 Consult Physician Routine Consulting Provider: Tulio Beard Consult Reason/Comments: fever Do you want consulting provider notified?: Yes 12/25/21 17:37 Consult Physician Routine Consulting Provider: Ailyn Daniel Consult Reason/Comments: KATELYNN Do you want consulting provider notified?: Yes 12/25/21 18:36 Consult Physician Routine Consulting Provider: Angie Meraz Consult Reason/Comments: ALTERED MS Do you want consulting provider notified?: Yes 12/28/21 09:32 Consult Physician Routine Consulting Provider: Loi Lemons Consult Reason/Comments: Thrombocytopenia Do you want consulting provider notified?: Yes 12/29/21 07:41 Consult Physician Routine Consulting Provider: Yuniel Dodge Consult Reason/Comments: urinary retention Do you want consulting provider notified?: Yes Primary care physician: Curry Angel MD Hospital Course: Discharge Diagnosis: Acute toxic metabolic encephalopathy, believed to be secondary to diabetic ketoacidosis and medication reaction resulting from polypharmacy use with narcotics, Neurontin, and Atarax. Generalized weakness, believed to be secondary to physical deconditioning resulting from overuse of medications including narcotics, Neurontin, and Atarax. Diabetic ketoacidosis Insulin-dependent type 2 diabetes mellitus with Uncontrolled hyperglycemia with Hgb A1c 8.1. Glucose levels much better controlled on insulin regimen. Patient to continue NovoLog 12 units 3 times daily with meals and Levemir 37 units nightly. Acute thrombocytopenia. Unclear etiology. Hematology evaluated and patient to follow-up outpatient in our office in 1-2 weeks. Transaminitis, resolved Hypophosphatemia. Continue PhosLo and patient to have follow-up outpatient labs to be drawn in 3 days with results to be sent to PCP and nephrology. Hypomagnesemia, resolved. Severe dehydration with hemoconcentration, resolved with IV fluid hydration Acute kidney injury, resolved after IV fluid hydration -Renal ultrasound without obstruction Lactic acidosis, believed to be secondary to dehydration and resolved after IV fluid hydration Chronic pain syndrome. Neurontin was discontinued along with Atarax and patient to resume oxycodone and MS Contin as previously ordered. Fever, resolved Leukocytosis, resolved -Unclear source of infection, likely secondary to decubitus ulcer present on arrival. CT abdomen and pelvis revealing hazy increased density in the right posterior thigh and buttock soft tissue could represent contusion, cellulitis, or developing decubitus ulcer. -Blood cultures negative to date -Urine culture negative -Negative influenza and COVID 19 -Patient on Rocephin per infectious disease recommendation Severe hypokalemia. Replaced -Holding home dose Lasix Type II NSTEMI secondary to diabetic ketoacidosis and acute kidney injury -2-D echo :Showed normal left ventricular systolic function -cardiologyfollowing, recommending following up outpatient in their office for Lexiscan after discharge Hypothyroidism -Resume levothyroxine Morbid obesity BMI 43.2 kg/m Abdominal folds candidiasis -Nystatin powder Right buttock pressure ulcer stage II present on admission, CT showed concerns for cellulitis. Patient completed 6 days of IV antibiotics and being discharged on 4 day course of Ceftin 500 mg twice daily to complete a total of 10 day course of antibiotics. Severe debility and deconditioning patient discharged to [facility] for PT/OT Hospital Course: Patient is a very pleasant 56-year-old female with past medical history of insulin-dependent diabetes mellitus,hypertension, and hyperlipidemia. Patient presented to the hospital on 12/25/21 with a chief complaint of alteration in mental status. she was found to be in diabetic ketoacidosis with blood glucose of 421, chloride 90, carbon dioxide 22, and anion gap 22. Hypokalemic with potassium of 2.8, hyponatremic with sodium 134, acute kidney injury with BUN of 27, creatinine 1.61, and GFR of 35. Leukocytosis with WBC count of 13.4, elevated hemoglobin of 18.4, elevated liver enzymes with AST of 100, and alkaline phosphatase of 138. Urine drug screen positive for opiates. Urinalysis positive for blood, protein, glucose and ketones and negative for infection. Lactic acid was 3.8 and troponin elevated at 0.060. CT head negative for acute intercranial process. chest x-ray revealing mild cardiomegalyand negative for acute cardiopulmonary process. abdominal/bladder ultrasound limited evaluation negative for acute process. CT abdomen and pelvis revealing hazy increased density in the right posterior thigh and buttock soft tissue could represent contusion, cellulitis, or developing decubitus ulcer, also noted anterior pelvic wall hernia containing a small section of sigmoid colon with mild gaseous distention of the sigmoid colon with no signs of obstruction. EKG revealed sinus tachycardia at 125 bpm. Chest x-ray revealing mild cardiomegaly without acute cardiopulmonary process. Echocardiogram revealing EF of 65-70% with moderately increased septal and posterior wall thickness. patient was admitted under the services for acute toxic metabolic encephalopathy believed to be secondary to diabetic ketoacidosis and medication reaction resulting from poly-pharmacy use with narcotics, Neurontin, and Atarax. patient was started on an insulin infusion and given vigorous IV hydration. Opioids, Neurontin and Atarax were held. Patient was started on IV antibiotics-Rocephin and Flagyl secondary to low-grade temp of 100.9 and leukocytosis. Neurology, cardiology, infectious disease, and nephrology were consulted. Wound care also consulted secondary to pressure ulcer on buttocks. Throughout hospitalization, patient's condition has improved and returned to baseline and normal mentation, with the exception that patient has experienced deconditioning and generalized weakness. Patient is typically wheelchair bound but is able to transfer self independently, however secondary to deconditioning patient will require additional physical therapy for assistance on rebuilding endurance and strength. Fever and leukocytosis resolved after treatment with IV antibiotics Rocephin and Flagyl. Infectious disease recommending patient complete 10 day course of antibiotics with Ceftin. Patient has been medically stabilized and is being discharged to jail facility at this time. Prescription sent for 4 day course of Ceftin Patient has received insurance authorization and being transferred to [facility]. Physical examination: Vital signs reviewed and stable. General: Nontoxic, no distress and appears stated age. obese. Derm: Skin warm and dry, normal coloration for ethnicity. Head: Atraumatic, normocephalic and symmetric. Eyes: EOMs intact, no lid lag, and anicteric sclera Mouth: no lip lesions, mucus membranes moist Cardiovascular: regular rate and rhythm with normal S1S2, no murmur, positive posterior tibial pulses bilaterally, and cap refill < 2 seconds. Lungs: Respirations even, regular, and unlabored on room air. Lungs CTA bilaterally, no rhonchi, no rales, no wheezing, and no accessory muscle usage. Abdominal: soft, nontender to palpation, no guarding, no appreciable organomegaly. erythema/lucila in abdominal folds. Ext: No gross muscle atrophy, no edema, no contractures. lower extremities in air boots. Neuro: Speech clear, face symmetrical and CN II-XII grossly intact with no noted focal neuro deficits Psych: Alert and oriented to person, place, time, and situation. Appropriate and pleasant affect. A total of 44 minutes of time were spent preparing this complex discharge summary. Pt was discharged on 12/31/21 at 9:37 AM Patient Condition at Discharge: Stable Plan - Discharge Summary Discharge Rx Participant: No New Discharge Prescriptions: New Folic Acid 1 mg PO DAILY tab Insulin Detemir (Levemir) [Levemir] 37 unit SQ HS each Nystatin 100,000 Unit/gm Powd [Mycostatin Powder] 1 applic TOPICAL BID each Ulqev-Wtl-Kewr 278-164-250 mg [Neutra-Phos Packet] 1 each PO TID packet Topiramate [Topamax] 100 mg PO BID tab cefUROXime axetiL [Ceftin] 500 mg PO BID 4 Days #8 tab Dextroamphetamine/Amphetamine [Adderall] 20 mg PO BID #4 INSULIN ASPART (NovoLOG) [NovoLOG (formulary)] 12 unit SQ AC-TID each Cholecalciferol [Vitamin D3 (125 Mcg = 5000 Iu)] 125 mcg PO DAILY tab Continue Sertraline [Zoloft] 100 mg PO BID rOPINIRole HCL [Requip] 1 mg PO HS busPIRone HCl [Buspar] 10 mg PO BID Atorvastatin [Lipitor] 20 mg PO HS Levothyroxine Sodium [Unithroid] 300 mcg PO DAILY Meloxicam [Mobic] 7.5 mg PO BID Albuterol Sulfate [Proventil Hfa] 2 puff INHALATION RT-Q4H PRN PRN Reason: Shortness Of Breath SILVER sulfADIAZINE Cream [Silvadene 1% Cream] 1 applic TOPICAL BID Cetirizine HCl 10 mg PO HS Prochlorperazine [Compazine] 10 mg PO Q8H PRN PRN Reason: Nausea Omeprazole 40 mg PO HS Oxybutynin ER [Ditropan Xl] 15 mg PO BID-W/MEALS tiZANidine HCL 4 mg PO BID Baclofen [Lioresal] 20 mg PO ACHS Docusate [Colace] 100 mg PO AC-BRKFST Empagliflozin [Jardiance] 25 mg PO DAILY Metoclopramide [Reglan] 10 mg PO HS LORazepam [Ativan] 0.5 mg PO DAILY PRN 3 Days #3 tab PRN Reason: Anxiety Morphine Sulfate ER [Ms Contin] 60 mg PO TID #6 tab oxyCODONE-APAP 10-325MG [Percocet 10-325 mg] 1 tab PO Q6HR PRN #3 tab PRN Reason: Pain Discontinued Topiramate [Topamax] 100 mg PO DAILY Furosemide [Lasix] 40 - 80 mg PO DIRECTED PRN PRN Reason: Edema Dextroamphetamine/Amphetamine [Adderall] 20 mg PO BID Insulin NPL/Insulin Lispro [humaLOG MIX 75-25 VIAL] 50 unit SQ BID Insulin Lispro [humaLOG Kwikpen] 15 unit SQ AC-BID PRN PRN Reason: HIGH BLOOD SUGAR hydrOXYzine HCL [Atarax] 12.5 mg PO TID PRN PRN Reason: Anxiety Topiramate 200 mg PO W/SUPPER Potassium Chloride ER [K-Dur 10] 10 meq PO DIRECTED Fluconazole 200 mg PO HS Gabapentin 800 mg PO TID Insulin Lispro [humaLOG Kwikpen] See Protocol SQ AC-BID PRN PRN Reason: BS >150 + 2UNITS/SCALE Discharge Medication List Atorvastatin [Lipitor] 20 mg PO HS 04/05/16 [History] Levothyroxine Sodium [Unithroid] 300 mcg PO DAILY 04/05/16 [History] Meloxicam [Mobic] 7.5 mg PO BID 04/05/16 [History] Sertraline [Zoloft] 100 mg PO BID 04/05/16 [History] busPIRone HCl [Buspar] 10 mg PO BID 04/05/16 [History] rOPINIRole HCL [Requip] 1 mg PO HS 04/05/16 [History] Albuterol Sulfate [Proventil Hfa] 2 puff INHALATION RT-Q4H PRN 07/30/16 [History] SILVER sulfADIAZINE Cream [Silvadene 1% Cream] 1 applic TOPICAL BID 07/30/16 [History] Baclofen [Lioresal] 20 mg PO ACHS 12/25/21 [History] Cetirizine HCl 10 mg PO HS 12/25/21 [History] Docusate [Colace] 100 mg PO AC-BRKFST 12/25/21 [History] Empagliflozin [Jardiance] 25 mg PO DAILY 12/25/21 [History] Metoclopramide [Reglan] 10 mg PO HS 12/25/21 [History] Omeprazole 40 mg PO HS 12/25/21 [History] Oxybutynin ER [Ditropan Xl] 15 mg PO BID-W/MEALS 12/25/21 [History] Prochlorperazine [Compazine] 10 mg PO Q8H PRN 12/25/21 [History] tiZANidine HCL 4 mg PO BID 12/25/21 [History] Cholecalciferol [Vitamin D3 (125 Mcg = 5000 Iu)] 125 mcg PO DAILY tab 12/31/21 [Rx] Dextroamphetamine/Amphetamine [Adderall] 20 mg PO BID #4 12/31/21 [Rx] Folic Acid 1 mg PO DAILY tab 12/31/21 [Rx] INSULIN ASPART (NovoLOG) [NovoLOG (formulary)] 12 unit SQ AC-TID each 12/31/21 [Rx] Insulin Detemir (Levemir) [Levemir] 37 unit SQ HS each 12/31/21 [Rx] LORazepam [Ativan] 0.5 mg PO DAILY PRN 3 Days #3 tab 12/31/21 [Rx] Morphine Sulfate ER [Ms Contin] 60 mg PO TID #6 tab 12/31/21 [Rx] Nystatin 100,000 Unit/gm Powd [Mycostatin Powder] 1 applic TOPICAL BID each 12/31/21 [Rx] Ybjav-Kew-Jvkm 278-164-250 mg [Neutra-Phos Packet] 1 each PO TID packet 12/31/21 [Rx] Topiramate [Topamax] 100 mg PO BID tab 12/31/21 [Rx] cefUROXime axetiL [Ceftin] 500 mg PO BID 4 Days #8 tab 12/31/21 [Rx] oxyCODONE-APAP 10-325MG [Percocet 10-325 mg] 1 tab PO Q6HR PRN #3 tab 12/31/21 [Rx] Follow up Appointment(s)/Referral(s): Curry Angel MD [Primary Care Provider] - 1-2 days Bruce Argueta DO [STAFF PHYSICIAN] - 1 Week Tulio Beard MD [STAFF PHYSICIAN] - 1 Week Arturo Springer MD [STAFF PHYSICIAN] - 2 Weeks Loi Lemons MD [STAFF PHYSICIAN] - 2 Weeks Gideon Ambrosio MD [STAFF PHYSICIAN] - 1 Week Ambulatory/Diagnostic Orders: Basic Metabolic Panel [LAB.AMB] Time Frame: 3 Days, Location: None Selected Magnesium [LAB.AMB] Location: None Selected Ambulatory Miscellaneous Order [MISC.AMB] Time Frame: 3 Days, Location: None Selected Activity/Diet/Wound Care/Special Instructions: Activity: As tolerated. Take breaks as needed. Diet: Heart healthy and carb consistent diet. Avoid salts, or foods with hidden salts such as canned or boxed foods and frozen dinners. Extra salt makes your heart work harder and traps the fluid in your body for longer. Special Instructions: Take all of your medications as directed and remember to keep all of your doctor's appointments and follow-up as needed. Turn every 2 hours and offload off coccyx as much as possible. Continue wound care with Aquacel silver dressing change every 48 hours. Thank you for allowing us to participate in your care, it was truly a pleasure having you for our patient!!! Discharge Disposition: TRANSFER TO SNF/ECF
[2021-12-31] MEDS ORDERED: Phosphorus Replacement Protoco 1 EACH MISC MISCELLANE PRN (10:06)
--- NOTE | 2021-12-31 10:11 | P.PN ---
Subjective Patient is seen in follow-up for acute kidney injury. Renal function back to baseline. He has been voiding on her own. Does admit to nausea. Oral intake fair. Denies vomiting or diarrhea. Vital signs are stable. General: Awake. No acute distress. HEENT: Head exam is unremarkable. LUNGS: Breath sounds decreased. HEART: Rate and Rhythm are regular. ABDOMEN: Soft, no distention. Obese. EXTREMITITES: No edema. Objective - Vital Signs Vital signs: Vital Signs Temp 98.3 F 12/31/21 07:56 Pulse 91 12/31/21 07:56 Resp 14 12/31/21 00:00 BP 107/69 12/31/21 07:56 Pulse Ox 93 L 12/31/21 07:56 FiO2 Intake & Output 12/30/21 12/31/21 12/31/21 18:59 06:59 18:59 Intake Total 668 Output Total 450 Balance 218 Weight 125 kg Intake: Oral 668 Output: Urine 50 Stool 400 Other: Voiding Method Indwelling Catheter External Catheter Bedpan - Labs CBC & Chem 7: 12/31/21 04:12 12/31/21 04:12 Labs: Abnormal Lab Results - Last 24 Hours (Table) 12/30/21 12/30/21 12/30/21 Range/Units 08:52 08:52 11:37 RDW (11.5-15.5) % Plt Count (150-450) k/uL PT 17.0 H (9.0-12.0) sec INR 1.7 H (<1.2) Sodium 135 L (137-145) mmol/L Carbon Dioxide 31 H (22-30) mmol/L Glucose 152 H (74-99) mg/dL POC Glucose (mg/dL) 127 H (70-110) mg/dL Calcium 7.8 L (8.4-10.2) mg/dL Phosphorus 1.5 L (2.5-4.5) mg/dL Magnesium 1.4 L (1.6-2.3) mg/dL Total Protein 4.6 L (6.3-8.2) g/dL Albumin 2.6 L (3.5-5.0) g/dL 12/30/21 12/30/21 12/30/21 Range/Units 16:25 16:36 20:35 RDW (11.5-15.5) % Plt Count 73 L (150-450) k/uL PT (9.0-12.0) sec INR (<1.2) Sodium (137-145) mmol/L Carbon Dioxide (22-30) mmol/L Glucose (74-99) mg/dL POC Glucose (mg/dL) 195 H 127 H (70-110) mg/dL Calcium (8.4-10.2) mg/dL Phosphorus (2.5-4.5) mg/dL Magnesium (1.6-2.3) mg/dL Total Protein (6.3-8.2) g/dL Albumin (3.5-5.0) g/dL 12/31/21 12/31/21 12/31/21 Range/Units 04:12 04:12 04:12 RDW 16.0 H (11.5-15.5) % Plt Count 88 L (150-450) k/uL PT (9.0-12.0) sec INR (<1.2) Sodium 132 L (137-145) mmol/L Carbon Dioxide (22-30) mmol/L Glucose 141 H (74-99) mg/dL POC Glucose (mg/dL) (70-110) mg/dL Calcium 7.7 L (8.4-10.2) mg/dL Phosphorus 2.3 L (2.5-4.5) mg/dL Magnesium (1.6-2.3) mg/dL Total Protein (6.3-8.2) g/dL Albumin (3.5-5.0) g/dL 12/31/21 Range/Units 06:54 RDW (11.5-15.5) % Plt Count (150-450) k/uL PT (9.0-12.0) sec INR (<1.2) Sodium (137-145) mmol/L Carbon Dioxide (22-30) mmol/L Glucose (74-99) mg/dL POC Glucose (mg/dL) 113 H (70-110) mg/dL Calcium (8.4-10.2) mg/dL Phosphorus (2.5-4.5) mg/dL Magnesium (1.6-2.3) mg/dL Total Protein (6.3-8.2) g/dL Albumin (3.5-5.0) g/dL Microbiology - Last 24 Hours (Table) 12/25/21 15:15 Blood Culture - Preliminary Blood No Growth after 120 hours 12/25/21 14:57 Blood Culture - Preliminary Blood No Growth after 120 hours Assessment and Plan Plan: Assessment: 1. Acute kidney injury secondary to ATN secondary to hypotension and urinary retention. Renal function improved. No hydronephrosis noted on kidney ultrasound. 2. Urinary retention. Martin catheter removed. Urology following. 3. DKA status post insulin drip. 4. 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 Proteinuria noted on UA. Further workup outpatient. 5. Hypophosphatemia from poor intake maintained on Neutra-Phos. Better. 6. Hypokalemia from poor intake. Replaced. 7. Hypomagnesemia from poor intake. Replaced. Improved. Plan: Encourage oral intake. Avoid nephrotoxins. Ejection fraction normal. Cortisol level in the normal range. Add maintenance potassium supplementation. I will give her a dose of potassium phosphate today. Follow-up outpatient in 1 week post discharge. Repeat BMP, magnesium and phosphorus level 2-3 days postdischarge.
[2021-12-31] MEDS ORDERED: POTASSIUM CHLORIDE ER 10 MEQ TAB.ER.PRT PO SCH (10:15)
[2021-12-31] MEDS ORDERED: POTASSIUM PHOSPHATE 10 MMOL in SODIUM CHLORIDE 0.9% 250 ML IV SCH (10:30)
[2021-12-31] MEDS ORDERED: POTASSIUM CHLORIDE ER 20 MEQ TAB.ER PO STA (10:49)
[2021-12-31] MEDS ORDERED: POTAS-SOD-PHOS 278-164-250 MG 1 EACH PACKET PO STA (10:52)
[2021-12-31 12:02] LABS: Free Kappa Lt Chain Qnt, Serum 1.43 mg/dL (0.33-1.94); Free Lambda Lt Chain Qnt, Seru 1.09 mg/dL (0.57-2.63)
[2021-12-31 13:16] LABS: Albumin 2.98 g/dL (3.80-4.90); Gamma Globulin 0.57 g/dL (0.70-1.50)
--- NOTE | 2021-12-31 17:09 | P.PN ---
Subjective Progress Note Date: 12/31/21 Principal diagnosis: thrombocytopenia In follow-up today patient reports she is going to rehabilitation. She denies any active bleeding. She denies history of liver disease but reports some heavy drinking in her younger years. Objective - Vital Signs Vital signs: Vital Signs Temp 98.3 F 12/31/21 07:56 Pulse 91 12/31/21 07:56 Resp 14 12/31/21 00:00 BP 107/69 12/31/21 07:56 Pulse Ox 93 L 12/31/21 07:56 FiO2 Intake & Output 12/30/21 12/31/21 12/31/21 18:59 06:59 18:59 Intake Total 668 Output Total 450 Balance 218 Weight 125 kg Intake: Oral 668 Output: Urine 50 Stool 400 Other: Voiding Method Indwelling Catheter External Catheter Bedpan - Constitutional General appearance: Present: cooperative, morbidly obese, no acute distress - EENT Eyes: Present: anicteric sclerae, EOMI ENT: Present: hearing grossly normal - Respiratory Details: respirations even and unlabored at rest - Neurologic Neurologic: Present: CNII-XII intact (grossly) - Musculoskeletal Musculoskeletal: Present: generalized weakness - Psychiatric Psychiatric: Present: A&O x's 3, appropriate affect, intact judgment & insight - Labs CBC & Chem 7: 12/31/21 04:12 12/31/21 04:12 Labs: Abnormal Lab Results - Last 24 Hours (Table) 12/27/21 12/27/21 12/30/21 Range/Units 09:26 09:26 16:36 RDW (11.5-15.5) % Plt Count 73 L (150-450) k/uL Sodium (137-145) mmol/L Glucose (74-99) mg/dL POC Glucose (mg/dL) (70-110) mg/dL Calcium (8.4-10.2) mg/dL Phosphorus (2.5-4.5) mg/dL Albumin (PEP) 2.98 L (3.80-4.90) g/dL Gamma Globulins 0.57 L (0.70-1.50) g/dL Vitamin B6 3 L (5-50) ug/L 12/30/21 12/31/21 12/31/21 Range/Units 20:35 04:12 04:12 RDW (11.5-15.5) % Plt Count (150-450) k/uL Sodium 132 L (137-145) mmol/L Glucose 141 H (74-99) mg/dL POC Glucose (mg/dL) 127 H (70-110) mg/dL Calcium 7.7 L (8.4-10.2) mg/dL Phosphorus 2.3 L (2.5-4.5) mg/dL Albumin (PEP) (3.80-4.90) g/dL Gamma Globulins (0.70-1.50) g/dL Vitamin B6 (5-50) ug/L 12/31/21 12/31/21 Range/Units 04:12 06:54 RDW 16.0 H (11.5-15.5) % Plt Count 88 L (150-450) k/uL Sodium (137-145) mmol/L Glucose (74-99) mg/dL POC Glucose (mg/dL) 113 H (70-110) mg/dL Calcium (8.4-10.2) mg/dL Phosphorus (2.5-4.5) mg/dL Albumin (PEP) (3.80-4.90) g/dL Gamma Globulins (0.70-1.50) g/dL Vitamin B6 (5-50) ug/L Microbiology - Last 24 Hours (Table) 12/25/21 15:15 Blood Culture - Preliminary Blood No Growth after 120 hours 12/25/21 14:57 Blood Culture - Preliminary Blood No Growth after 120 hours Assessment and Plan (1) Thrombocytopenia Status: Acute Priority: Medium Code(s): D69.6 - THROMBOCYTOPENIA, UNSPECIFIED SNOMED Code(s): 071678482 Plan: Suspect low platelets related to acute illness and chronic diseases. Would anticipate as patient recuperates that her platelet count will recover, however, don't suspect that her platelets will necessarily be normal. Minimally invasive workup at this time has not revealed a cause for patient's low platelets. Would recommend CBC monitoring with her PCP at this time. As patient recuperates, if her counts do not recover then further, more invasive workup with Hematology is reasonable. Would also recommend monitoring of coags-elevated INR, not on anticoagulation, is suspicious for chronic liver disease.
== END 2021-12-31 11:45 | DRG 637 ==
LOC: EC 14:26 → 3SCARD 16:33 → 4SSUR 12-30 23:42
PROVIDERS: ADMIT Hospitalist; ATTEND Hospitalist
DX: E11.10 Type 2 diabetes mellitus with ketoacidosis without coma (principal); G92.8 Other toxic encephalopathy; I21.A1 Myocardial infarction type 2; N17.0 Acute kidney failure with tubular necrosis; I13.0 Hypertensive heart and chronic kidney disease with heart failure and stage 1 through stage 4 chronic kidney disease, or unspecified chronic kidney disease; L97.922 Non-pressure chronic ulcer of unspecified part of left lower leg with fat layer exposed; B37.0 Candidal stomatitis; Z68.41 Body mass index [BMI] 40.0-44.9, adult; L03.317 Cellulitis of buttock; D69.6 Thrombocytopenia, unspecified; E03.9 Hypothyroidism, unspecified; E11.22 Type 2 diabetes mellitus with diabetic chronic kidney disease; E11.622 Type 2 diabetes mellitus with other skin ulcer; E11.42 Type 2 diabetes mellitus with diabetic polyneuropathy; E66.01 Morbid (severe) obesity due to excess calories; E83.39 Other disorders of phosphorus metabolism; F32.A Depression, unspecified; I50.9 Heart failure, unspecified; L89.611 Pressure ulcer of right heel, stage 1; L89.152 Pressure ulcer of sacral region, stage 2; Z28.310 Unvaccinated for COVID-19; Z20.822 Contact with and (suspected) exposure to COVID-19; R16.0 Hepatomegaly, not elsewhere classified; L89.312 Pressure ulcer of right buttock, stage 2; I65.29 Occlusion and stenosis of unspecified carotid artery; B37.2 Candidiasis of skin and nail; T50.2X5A Adverse effect of carbonic-anhydrase inhibitors, benzothiadiazides and other diuretics, initial encounter; Z79.4 Long term (current) use of insulin; E53.8 Deficiency of other specified B group vitamins; E78.5 Hyperlipidemia, unspecified; E83.42 Hypomagnesemia; E86.0 Dehydration; E87.6 Hypokalemia; G89.4 Chronic pain syndrome; I44.0 Atrioventricular block, first degree; R09.02 Hypoxemia; Z91.041 Radiographic dye allergy status; Z91.040 Latex allergy status; Z88.0 Allergy status to penicillin; Z88.1 Allergy status to other antibiotic agents; R53.82 Chronic fatigue, unspecified; Z98.890 Other specified postprocedural states; N18.2 Chronic kidney disease, stage 2 (mild); K43.9 Ventral hernia without obstruction or gangrene; G47.30 Sleep apnea, unspecified; R33.9 Retention of urine, unspecified; H92.01 Otalgia, right ear; Z96.60 Presence of unspecified orthopedic joint implant; S30.0XXA Contusion of lower back and pelvis, initial encounter; T40.601A Poisoning by unspecified narcotics, accidental (unintentional), initial encounter; T42.6X1A Poisoning by other antiepileptic and sedative-hypnotic drugs, accidental (unintentional), initial encounter; T43.591A Poisoning by other antipsychotics and neuroleptics, accidental (unintentional), initial encounter; R53.81 Other malaise; Z79.1 Long term (current) use of non-steroidal anti-inflammatories (NSAID); Z79.84 Long term (current) use of oral hypoglycemic drugs; Z79.890 Hormone replacement therapy; Z79.899 Other long term (current) drug therapy; Z79.891 Long term (current) use of opiate analgesic; Z99.3 Dependence on wheelchair; Z71.3 Dietary counseling and surveillance; Z98.42 Cataract extraction status, left eye; Z98.41 Cataract extraction status, right eye; Z87.820 Personal history of traumatic brain injury; Z87.440 Personal history of urinary (tract) infections; Z87.828 Personal history of other (healed) physical injury and trauma; Z90.89 Acquired absence of other organs; Z86.14 Personal history of Methicillin resistant Staphylococcus aureus infection; Z90.49 Acquired absence of other specified parts of digestive tract; Z87.01 Personal history of pneumonia (recurrent); Z80.7 Family history of other malignant neoplasms of lymphoid, hematopoietic and related tissues; Z82.3 Family history of stroke; Z83.3 Family history of diabetes mellitus; Z82.69 Family history of other diseases of the musculoskeletal system and connective tissue
CPT/HCPCS: 36415; 36600; 70450; 71045; 74176; 76770; 80048; 80051; 80053; 80074; 80306; 81001; 82009; 82306; 82533; 82553; 82565; 82607; 82728; 82746; 82784; 82805; 82947; 83010; 83036; 83540; 83550; 83605; 83615; 83735; 83883; 83921; 84100; 84145; 84165; 84207; 84443; 84484; 84520; 85025; 85045; 85379; 85384; 85610; 85652; 85730; 86038; 86140; 86334; 86431; 87040; 87086; 87502; 87635; 93005; 93306; 94640; 96365; 96366; 96375; 99285

== ENCOUNTER 2022-04-22 19:54 | Emergency (ER) | payer MEDICARE ==
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
[2022-04-22 20:06] VITALS: RESP 16; TEMP 97.8
--- NOTE | 2022-04-22 20:47 | XR ---
EXAMINATION TYPE: XR ankle complete RT DATE OF EXAM: 04/22/2022 COMPARISON: NONE HISTORY: Pain TECHNIQUE: 3 views FINDINGS: There is transverse fracture of the distal fibula. There is osteopenia. No definite tibia f racture. Ankle mortise is anatomic. IMPRESSION: Nondisplaced fracture of the lateral malleolus. Age of this fracture is not clear. No mily gwen formation. Osteopenia.
[2022-04-22 23:01] VITALS: BP 107/57; PULSE 56
== END 2022-04-22 23:04 | disposition home or self-care (01) ==
LOC: EC 19:54
DX: S82.841A Displaced bimalleolar fracture of right lower leg, initial encounter for closed fracture (principal); E11.9 Type 2 diabetes mellitus without complications; M19.90 Unspecified osteoarthritis, unspecified site; E07.9 Disorder of thyroid, unspecified; I50.9 Heart failure, unspecified; F32.A Depression, unspecified; Z91.041 Radiographic dye allergy status; Z91.040 Latex allergy status; Z88.0 Allergy status to penicillin; Z79.4 Long term (current) use of insulin; Z79.890 Hormone replacement therapy; Z79.899 Other long term (current) drug therapy; Z79.51 Long term (current) use of inhaled steroids; W05.0XXA Fall from non-moving wheelchair, initial encounter
CPT/HCPCS: 29515; 99284

== ENCOUNTER 2022-11-21 19:29 | Emergency (ER) | payer MEDICARE ==
[2022-11-21] MEDS ORDERED: SODIUM CHLORIDE 0.9% 1,000 ML IV STA (19:34)
[2022-11-21] MEDS ORDERED: MORPHINE SULFATE 4 MG/ML SYRINGE IV STA (19:34)
[2022-11-21] MEDS ORDERED: KETOROLAC 15 MG/ML 1 ML VIAL IVP STA ×2 (19:35→22:07)
[2022-11-21 19:40] VITALS: RESP 18; TEMP 97.9
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
--- NOTE | 2022-11-21 20:05 | XR ---
EXAMINATION TYPE: XR chest 1V portable DATE OF EXAM: 11/21/2022 8:02 PM COMPARISON: Chest radiographs from 12/28/2021 TECHNIQUE: XR chest 1V portable Frontal view of the chest. CLINICAL INDICATION:Female, 57 years old with history of pain; FINDINGS: Lungs/Pleura: There is no evidence of pleural effusion, focal consolidation, or pneumothorax. Pulmonary vascularity: Unremarkable. Heart/mediastinum: Cardiomediastinal silhouette is unremarkable. Musculoskeletal: No acute osseous pathology. IMPRESSION: No acute cardiopulmonary disease/process.
[2022-11-21 20:33] LABS: Basophils % (A) 0 %; Eosinophils # (A) 0.1 k/uL (0-0.7); Eosinophils % (A) 1 %; HCT 46.1 % (34.0-46.0); HGB 15.1 gm/dL (11.4-16.0); Lymphocytes # (A) 1.8 k/uL (1.0-4.8); Lymphocytes % (A) 27 %; MCH 29.9 pg (25.0-35.0); MCHC 32.9 g/dL (31.0-37.0); MCV 91.1 fL (80.0-100.0); Mean Platelet Volume 8.6; Monocytes # (A) 0.3 k/uL (0-1.0); Monocytes % (A) 5 %; Neutrophils # (A) 4.3 k/uL (1.3-7.7); Neutrophils % (A) 65 %; Platelet Count 138 k/uL (150-450); RBC 5.06 m/uL (3.80-5.40); WBC 6.6 k/uL (3.8-10.6)
[2022-11-21 20:54] LABS: ALT 15 U/L (4-34); AST 22 U/L (14-36); African American GFR (CKD) 81 (>60 ml/min/1.73 sqM); Albumin 4.2 g/dL (3.5-5.0); Alkaline Phosphatase 101 U/L (38-126); Anion Gap 13 mmol/L; Blood Urea Nitrogen 19 mg/dL (7-17); Calcium 9.8 mg/dL (8.4-10.2); Carbon Dioxide 22 mmol/L (22-30); Chloride 103 mmol/L (98-107); Glucose 213 mg/dL (74-99); Non-African American GFR(CKD) 71 (>60 ml/min/1.73 sqM); Phosphorus 3.4 mg/dL (2.5-4.5); Potassium 3.5 mmol/L (3.5-5.1); Sodium 138 mmol/L (137-145); Total Bilirubin 0.7 mg/dL (0.2-1.3); Total Protein 6.7 g/dL (6.3-8.2)
[2022-11-21 20:57] LABS: Partial Thromboplastin Time 25.1 sec (22.0-30.0); Prothrombin Time 10.4 sec (9.0-12.0)
[2022-11-21 21:00] LABS: VBG PH 7.34 (7.31-7.41)
[2022-11-21 22:13] VITALS: BP 109/71; PULSE 54
== END 2022-11-21 22:51 | disposition home or self-care (01) ==
LOC: EC 19:29
DX: M54.9 Dorsalgia, unspecified (principal); R53.1 Weakness; R19.7 Diarrhea, unspecified; E11.40 Type 2 diabetes mellitus with diabetic neuropathy, unspecified; I50.9 Heart failure, unspecified; E07.9 Disorder of thyroid, unspecified; F32.A Depression, unspecified; M19.90 Unspecified osteoarthritis, unspecified site; Z20.822 Contact with and (suspected) exposure to COVID-19; Z79.84 Long term (current) use of oral hypoglycemic drugs; Z79.890 Hormone replacement therapy; Z79.899 Other long term (current) drug therapy; Z88.0 Allergy status to penicillin; Z88.1 Allergy status to other antibiotic agents; Z91.040 Latex allergy status; Z91.041 Radiographic dye allergy status; Z88.6 Allergy status to analgesic agent; Z88.8 Allergy status to other drugs, medicaments and biological substances; Z90.49 Acquired absence of other specified parts of digestive tract
CPT/HCPCS: 36415; 93005; 83880; 80053; 82803; 82009; 83735; 84100; 84484; 85025; 85610; 85730; 87636; 71045; 99285; 96374; 96375 ×2; 96361; J2270; J1885

== ENCOUNTER 2023-09-26 13:19 | Emergency (ER) | payer MEDICARE ==
[2023-09-26 13:40] VITALS: RESP 18; TEMP 98.2
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
[2023-09-26] MEDS: SODIUM CHLORIDE 0.9% 1,000 ML IV ONE (14:09)
[2023-09-26 14:25] LABS: Basophils # (A) 0.1 k/uL (0-0.2); Basophils % (A) 1 %; Eosinophils # (A) 0.1 k/uL (0-0.7); Eosinophils % (A) 1 %; HGB 16.3 gm/dL (11.4-16.0); Lymphocytes # (A) 1.4 k/uL (1.0-4.8); Lymphocytes % (A) 19 %; MCH 30.1 pg (25.0-35.0); MCHC 32.5 g/dL (31.0-37.0); MCV 92.5 fL (80.0-100.0); Mean Platelet Volume 8.4; Monocytes # (A) 0.3 k/uL (0-1.0); Monocytes % (A) 4 %; Neutrophils # (A) 5.7 k/uL (1.3-7.7); Neutrophils % (A) 74 %; Platelet Count 114 k/uL (150-450); RDW 13.7 % (11.5-15.5); WBC 7.7 k/uL (3.8-10.6)
--- NOTE | 2023-09-26 14:30 | XR ---
EXAMINATION TYPE: XR chest 2V DATE OF EXAM: 09/26/2023 2:19 PM CLINICAL INDICATION:Female, 58 years old with history of difficulty breathing; [facility] COMPARISON: Chest radiographs from 11/21/2022. TECHNIQUE: XR chest 2V Frontal and lateral views of the chest. FINDINGS: Lungs/Pleura: There is no evidence of pleural effusion, focal consolidation, or pneumothorax. Pulmonary vascularity: Unremarkable. Heart/mediastinum: Cardiomediastinal silhouette is unremarkable. Musculoskeletal: No acute osseous pathology. Other findings: None IMPRESSION: No acute cardiopulmonary disease/process.
[2023-09-26 14:40] LABS: ALT 8 U/L (4-34); AST 16 U/L (14-36); African American GFR (CKD) >90 (>60 ml/min/1.73 sqM); Albumin 4.6 g/dL (3.5-5.0); Alkaline Phosphatase 117 U/L (38-126); Anion Gap 17 mmol/L; Blood Urea Nitrogen 20 mg/dL (7-17); Calcium 10.3 mg/dL (8.4-10.2); Carbon Dioxide 20 mmol/L (22-30); Chloride 103 mmol/L (98-107); Glucose 181 mg/dL (74-99); Lipase 104 U/L (23-300); Magnesium 2.1 mg/dL (1.6-2.3); Non-African American GFR(CKD) 89 (>60 ml/min/1.73 sqM); Potassium 3.9 mmol/L (3.5-5.1); Sodium 140 mmol/L (137-145); Total Bilirubin 1.3 mg/dL (0.2-1.3); Total Protein 7.1 g/dL (6.3-8.2)
[2023-09-26 14:46] LABS: INR 1.1 (<1.2); Partial Thromboplastin Time 26.7 sec (22.0-30.0); Prothrombin Time 12.3 sec (10.0-12.5)
[2023-09-26] MEDS: ONDANSETRON 4 MG/2 ML VIAL IVP STA (14:59)
[2023-09-26] MEDS: ONDANSETRON 4 MG ODT STARTER PACK 2 TAB BTL PO STA (15:20)
[2023-09-26 15:48] VITALS: BP 118/80; PULSE 90
== END 2023-09-26 15:34 | disposition home or self-care (01) ==
LOC: SUPCPDRO 13:19 → EC 13:19
DX: R06.00 Dyspnea, unspecified (principal); R10.11 Right upper quadrant pain; G47.30 Sleep apnea, unspecified; I50.9 Heart failure, unspecified; M19.90 Unspecified osteoarthritis, unspecified site; E07.9 Disorder of thyroid, unspecified; F32.A Depression, unspecified; Z79.890 Hormone replacement therapy; Z79.84 Long term (current) use of oral hypoglycemic drugs; Z79.899 Other long term (current) drug therapy; Z88.0 Allergy status to penicillin; Z88.1 Allergy status to other antibiotic agents; Z91.040 Latex allergy status; Z91.041 Radiographic dye allergy status; Z88.8 Allergy status to other drugs, medicaments and biological substances; Z90.49 Acquired absence of other specified parts of digestive tract
CPT/HCPCS: 36415; 93005; 85379; 80053; 83605; 83690; 83735; 84484; 85025; 85610; 85730; 71046; 99285; 96374; 96361; J2405; S0119

== ENCOUNTER → 2023-10-01 | Outpatient (CLI) | payer MEDICARE ==
[2023-10-01 13:18] VITALS: BP 132/79; PULSE 89; RESP 15; TEMP 98.6
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
--- NOTE | 2023-10-01 17:58 | XR ---
EXAMINATION TYPE: XR lumbar spine 2 or 3V DATE OF EXAM: 10/01/2023 1:23 PM CLINICAL INDICATION:Female, 58 years old with history of M51.36 Lumbar pain; [facility] COMPARISON: None TECHNIQUE: XR lumbar spine 2 or 3V - Frontal, lateral and coned in L5-S1 lateral views of the spine. FINDINGS: No evidence of any acute osseous pathology. No evidence of loss of vertebral body height i s seen. There is normal alignment of the lumbar vertebral bodies. Moderate scattered disc space narro wing. Multilevel marginal osteophyte formation throughout the visualized spine. There is facet joint arthropathy throughout the spine. Scattered at least mild neural foraminal stenosis. Atherosclerosis of the arterial vasculature. IMPRESSION: 1. No acute fracture. 2. Moderate multilevel disc degeneration.
== END ==
LOC: PNWHC3 11:43
PROVIDERS: ATTEND Specialist
DX: M48.061 Spinal stenosis, lumbar region without neurogenic claudication (principal); G89.4 Chronic pain syndrome; M51.36 Other intervertebral disc degeneration, lumbar region; M19.90 Unspecified osteoarthritis, unspecified site; Z88.5 Allergy status to narcotic agent; Z91.041 Radiographic dye allergy status; Z91.040 Latex allergy status; Z88.1 Allergy status to other antibiotic agents; Z88.0 Allergy status to penicillin; Z88.8 Allergy status to other drugs, medicaments and biological substances
CPT/HCPCS: 72100; 99211

== ENCOUNTER 2024-03-09 17:00 | Observation (INO) | payer MEDICARE ==
[2024-03-09] MEDS: SODIUM CHLORIDE 0.9% 1,000 ML IV ONE (17:35)
[2024-03-09] MEDS: NALOXONE 0.4 MG/ML 1 ML VIAL IVP STA ×2 (17:35→18:31)
[2024-03-09] MEDS: ONDANSETRON 4 MG/2 ML VIAL IVP STA (17:38)
[2024-03-09 17:51] LABS: Glucose,Whole Blood 145 mg/dL (70-110)
[2024-03-09] MEDS: MAGNESIUM SULFATE-D5W PMX 1 GM in DEXTROSE/WATER 1 100ML.BAG IVPB ONE (18:12)
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
[2024-03-09 18:30] LABS: VBG PH 7.28 (7.31-7.41)
[2024-03-09 18:31] LABS: Partial Thromboplastin Time 27.6 sec (22.0-30.0); Prothrombin Time 10.7 sec (10.0-12.5)
[2024-03-09 18:36] LABS: Basophils % (A) 1 %; Eosinophils # (A) 0.1 k/uL (0-0.7); Eosinophils % (A) 3 %; HCT 36.3 % (34.0-46.0); HGB 11.6 gm/dL (11.4-16.0); Hypochromasia Moderate; Lymphocytes # (A) 0.9 k/uL (1.0-4.8); Lymphocytes % (A) 21 %; MCH 31.9 pg (25.0-35.0); MCV 99.5 fL (80.0-100.0); Macrocytosis Slight; Monocytes # (A) 0.3 k/uL (0-1.0); Monocytes % (A) 7 %; Neutrophils # (A) 2.8 k/uL (1.3-7.7); Neutrophils % (A) 66 %; Platelet Count 112 k/uL (150-450); RBC 3.65 m/uL (3.80-5.40); RDW 15.2 % (11.5-15.5); WBC 4.3 k/uL (3.8-10.6)
[2024-03-09 18:41] LABS: ALT 15 U/L (4-34); AST 22 U/L (14-36); Acetaminophen <10.0 ug/mL; African American GFR (CKD) 86 (>60 ml/min/1.73 sqM); Albumin 3.3 g/dL (3.5-5.0); Alcohol <10 mg/dL; Alkaline Phosphatase 86 U/L (38-126); Anion Gap 5 mmol/L; Blood Urea Nitrogen 21 mg/dL (7-17); Calcium 9.1 mg/dL (8.4-10.2); Carbon Dioxide 25 mmol/L (22-30); Chloride 110 mmol/L (98-107); Glucose 157 mg/dL (74-99); Non-African American GFR(CKD) 74 (>60 ml/min/1.73 sqM); Potassium 4.5 mmol/L (3.5-5.1); Salicylate <1.0 mg/dL; Sodium 140 mmol/L (137-145); Total Bilirubin 0.8 mg/dL (0.2-1.3); Total Protein 5.5 g/dL (6.3-8.2)
[2024-03-09 18:45] LABS: Lactic Acid, Venous 1.2 mmol/L (0.7-2.0)
--- NOTE | 2024-03-09 19:49 | XR ---
EXAMINATION TYPE: XR chest 2V DATE OF EXAM: 03/09/2024 7:32 PM CLINICAL INDICATION:Female, 58 years old with history of altered mental status; [facility] COMPARISON: Chest radiographs from 09/26/2023 TECHNIQUE: XR chest 2V Frontal and lateral views of the chest. FINDINGS: Lungs/Pleura: Airspace opacities are identified bilaterally. No pleural effusion or pneumothorax. Pulmonary vascularity: Unremarkable. Heart/mediastinum: The cardiac silhouette is enlarged. Musculoskeletal: No acute osseous pathology. IMPRESSION: 1. Findings concerning for multifocal infectious/inflammatory airspace disease. 2. Mild interval increase in the size of the cardiac silhouette and compared to September. Findings may r epresent underlying pericardial effusion.
--- NOTE | 2024-03-09 20:35 | CT ---
EXAMINATION TYPE: CT brain wo con CT DLP: 1094 mGycm, Automated exposure control for dose reduction was used. DATE OF EXAM: 03/09/2024 8:28 PM COMPARISON: CT brain 12/25/2021. CLINICAL INDICATION:Female, 58 years old with history of Altered mental status, AMS TECHNIQUE: Brain: Axial CT images of the brain were obtained with coronal and sagittal reformats created and rev iewed. Contrast used: None. Oral contrast used: None. FINDINGS: Brain: Extra-axial spaces: No abnormal extra-axial fluid collections. Ventricular system: Within normal limits Cerebral parenchyma: No acute intraparenchymal hemorrhage or mass effect. The mendoza-white junction is well differentiated. Cerebellum: Unremarkable. Mass effect: No evidence of midline shift. Intracranial vasculature: unremarkable Soft tissues: Normal. Calvarium/osseous structures: No depressed skull fracture. Paranasal sinuses and mastoid air cells: Mild scattered paranasal sinus disease. Visualized orbits: Orbital contents are intact. IMPRESSION: No acute intracranial process.
[2024-03-09] MEDS ORDERED: ONDANSETRON 4 MG/2 ML VIAL IVP PRN (21:08)
[2024-03-09] MEDS ORDERED: NALOXONE 0.4 MG/ML 1 ML VIAL IV PRN (21:08)
[2024-03-09] MEDS ORDERED: ALBUTEROL NEBULIZED 2.5 MG/3 ML INHALATION PRN (21:24)
[2024-03-09 21:43] LABS: Appearance,Urine Clear (Clear); Bacteria,Urine Occasional /hpf; Bilirubin,Urine Negative (Negative); Blood,Urine Negative (Negative); Color,Urine Colorless; Glucose,Urine (UA) Negative (Negative); Hyaline Casts,Urine 1 /lpf (0-2); Ketones,Urine Negative (Negative); Leukocyte Esterase,Urine Large (Negative); Nitrite,Urine Positive (Negative); PH, Urine 6.5 (5.0-8.0); Protein,Urine Negative (Negative); RBC,Urine 1 /hpf (0-5); Specific Gravity,Urine 1.005 (1.001-1.035); Urobilinogen,Urine <2.0 mg/dL (<2.0); WBC,Urine 32 /hpf (0-5)
[2024-03-09 21:52] LABS: Amphetamine Screen,Urine Not Detected (NotDetected); Barbiturate Screen,Urine Not Detected (NotDetected); Benzodiazepines Screen,Urine Not Detected (NotDetected); Cocaine Screen,Urine Not Detected (NotDetected); Methadone Screen, Urine Not Detected (NotDetected); Opiate Screen,Urine Detected (NotDetected); Oxycodone Screen, Urine Detected (NotDetected); Phencyclidine Screen,Urine Not Detected (NotDetected); Tricyclic Antidepressant,Urine Not Detected (NotDetected); Urn Cannabinoid Scrn Not Detected (NotDetected)
[2024-03-09] MEDS: FUROSEMIDE 10 MG/ML 4 ML VIAL IV SCH (21:52)
[2024-03-09] MEDS ORDERED: FLUCONAZOLE 100 MG TAB PO PRN (22:00)
[2024-03-10] MEDS ORDERED: HEPARIN SODIUM,PORCINE 5,000 UNIT/ML 1 ML VIAL ONE (01:13)
[2024-03-10] MEDS: HEPARIN SODIUM,PORCINE 5,000 UNIT/ML 1 ML VIAL SQ SCH (04:19)
[2024-03-10] MEDS ORDERED: DEXTROSE 50% SYRINGE 50 ML IVP PRN ×2 (04:19)
[2024-03-10] MEDS: ATORVASTATIN 20 MG TAB PO SCH (04:19)
[2024-03-10 04:51] LABS: Basophils % (A) 0 %; Eosinophils # (A) 0.1 k/uL (0-0.7); Eosinophils % (A) 2 %; HCT 37.4 % (34.0-46.0); HGB 11.3 gm/dL (11.4-16.0); Hypochromasia Marked; Lymphocytes # (A) 0.9 k/uL (1.0-4.8); Lymphocytes % (A) 22 %; MCH 30.5 pg (25.0-35.0); MCHC 30.2 g/dL (31.0-37.0); MCV 101.1 fL (80.0-100.0); Macrocytosis Slight; Mean Platelet Volume 8.6; Monocytes # (A) 0.3 k/uL (0-1.0); Monocytes % (A) 7 %; Neutrophils # (A) 2.6 k/uL (1.3-7.7); Neutrophils % (A) 67 %; Platelet Count 112 k/uL (150-450); RDW 14.7 % (11.5-15.5); WBC 3.9 k/uL (3.8-10.6)
[2024-03-10 05:13] LABS: ALT 99 U/L (4-34); AST 113 U/L (14-36); African American GFR (CKD) 84 (>60 ml/min/1.73 sqM); Albumin 3.2 g/dL (3.5-5.0); Alkaline Phosphatase 129 U/L (38-126); Anion Gap 4 mmol/L; Blood Urea Nitrogen 20 mg/dL (7-17); Carbon Dioxide 28 mmol/L (22-30); Chloride 111 mmol/L (98-107); Glucose 145 mg/dL (74-99); Non-African American GFR(CKD) 73 (>60 ml/min/1.73 sqM); Potassium 4.6 mmol/L (3.5-5.1); Sodium 143 mmol/L (137-145); Total Bilirubin 0.6 mg/dL (0.2-1.3); Total Protein 5.3 g/dL (6.3-8.2)
[2024-03-10] MEDS: LEVOTHYROXINE 100 MCG TAB PO SCH (05:49)
[2024-03-10 05:53] LABS: Glucose,Whole Blood 113 mg/dL (70-110)
[2024-03-10] MEDS: INSULIN ASPART (NovoLOG) 100 UNIT/ML VIAL SQ SCH ×2 (05:54→21:13)
[2024-03-10] MEDS: ACETAMINOPHEN TAB 325 MG TAB PO STA (06:24)
[2024-03-10] MEDS: DAPAGLIFLOZIN PROPANEDIOL 10 MG TABLET PO SCH (12:25)
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
[2024-03-10 12:53] LABS: Glucose,Whole Blood 151 mg/dL (70-110)
--- NOTE | 2024-03-10 13:32 | P.PN ---
Subjective Progress Note Date: 03/10/24 Principal diagnosis: sob She reports feeling well, denies having any chest pain or shortness of breath. No fevers or chills. No nausea or vomiting. States that her brother might have missed up the pills. He uUsually arranges her medications for her. Objective - Vital Signs Vital signs: Vital Signs Temp 98.9 F 03/10/24 07:00 Pulse 64 03/10/24 07:00 Resp 16 03/10/24 07:00 BP 106/61 03/10/24 07:00 Pulse Ox 97 03/10/24 07:00 FiO2 Intake & Output 03/09/24 03/10/24 03/10/24 18:59 06:59 18:59 Intake Total 0 Output Total 700 1200 Balance -700 -1200 Weight 147.418 kg Intake: Oral 0 Output: Urine 700 1200 Other: Voiding Method External Catheter - Exam Constitutional: No acute distress, conversant, pleasant Eyes:Anicteric sclerae, moist conjunctiva, no lid-lag, PERRLA, ENMT: Oropharynx clear, no erythema, exudates Neck: Supple, FROM, no masses, or JVD, No carotid bruits, No thyromegaly Lungs: Clear to auscultation, Clear to percussion, Normal respiratory effort, no accessory muscle use Cardiovascular: Heart regular in rate and rhythm, No murmurs, gallops, or rubs, 2+ peripheral edema Abdominal: Soft, Nontender, no guarding, rebound or rigidity, Normoactive bowel sounds, No hepatomegaly, No splenomegaly, No palpable mass Skin: Normal temperature, tone, texture, turgor, no induration, No subcutaneous nodules, No rash, lesions, No ulcers Extremities: No digital cyanosis, No clubbing, Pedal pulses intact and symmetrical, Radial pulses intact and symmetrical, No calf tenderness Psychiatric: Alert and oriented to person, place and time, appropriate affect, intact judgement Neuro: Muscles Strength 5/5 in all 4 extremities, Sensation to light touch grossly present throughout, Cranial nerves II-XII grossly intact, no focal sensory deficits - Labs CBC & Chem 7: 03/10/24 03:34 03/10/24 03:34 Labs: Abnormal Lab Results - Last 24 Hours (Table) 03/09/24 03/09/24 03/09/24 Range/Units 17:39 17:39 17:39 RBC 3.65 L (3.80-5.40) m/uL Hgb (11.4-16.0) gm/dL MCV (80.0-100.0) fL MCHC (31.0-37.0) g/dL Plt Count 112 L (150-450) k/uL Lymphocytes # 0.9 L (1.0-4.8) k/uL VBG pH (7.31-7.41) Chloride 110 H (98-107) mmol/L BUN 21 H (7-17) mg/dL Glucose 157 H (74-99) mg/dL POC Glucose (mg/dL) (70-110) mg/dL AST (14-36) U/L ALT (4-34) U/L Alkaline Phosphatase (38-126) U/L Total Protein 5.5 L (6.3-8.2) g/dL Albumin 3.3 L (3.5-5.0) g/dL Urine Nitrite Positive H (Negative) Ur Leukocyte Esterase Large H (Negative) Urine WBC 32 H (0-5) /hpf Urine Bacteria Occasional H (None) /hpf Urine Opiates Screen Detected H (NotDetected) Ur Oxycodone Screen Detected H (NotDetected) 03/09/24 03/09/24 03/10/24 Range/Units 17:39 17:49 03:34 RBC 3.70 L (3.80-5.40) m/uL Hgb 11.3 L (11.4-16.0) gm/dL MCV 101.1 H (80.0-100.0) fL MCHC 30.2 L (31.0-37.0) g/dL Plt Count 112 L (150-450) k/uL Lymphocytes # 0.9 L (1.0-4.8) k/uL VBG pH 7.28 L (7.31-7.41) Chloride (98-107) mmol/L BUN (7-17) mg/dL Glucose (74-99) mg/dL POC Glucose (mg/dL) 145 H (70-110) mg/dL AST (14-36) U/L ALT (4-34) U/L Alkaline Phosphatase (38-126) U/L Total Protein (6.3-8.2) g/dL Albumin (3.5-5.0) g/dL Urine Nitrite (Negative) Ur Leukocyte Esterase (Negative) Urine WBC (0-5) /hpf Urine Bacteria (None) /hpf Urine Opiates Screen (NotDetected) Ur Oxycodone Screen (NotDetected) 03/10/24 03/10/24 03/10/24 Range/Units 03:34 05:51 12:52 RBC (3.80-5.40) m/uL Hgb (11.4-16.0) gm/dL MCV (80.0-100.0) fL MCHC (31.0-37.0) g/dL Plt Count (150-450) k/uL Lymphocytes # (1.0-4.8) k/uL VBG pH (7.31-7.41) Chloride 111 H (98-107) mmol/L BUN 20 H (7-17) mg/dL Glucose 145 H (74-99) mg/dL POC Glucose (mg/dL) 113 H 151 H (70-110) mg/dL AST 113 H (14-36) U/L ALT 99 H (4-34) U/L Alkaline Phosphatase 129 H (38-126) U/L Total Protein 5.3 L (6.3-8.2) g/dL Albumin 3.2 L (3.5-5.0) g/dL Urine Nitrite (Negative) Ur Leukocyte Esterase (Negative) Urine WBC (0-5) /hpf Urine Bacteria (None) /hpf Urine Opiates Screen (NotDetected) Ur Oxycodone Screen (NotDetected) Assessment and Plan Plan: Acute CHF exacerbation seen by cardiology Obtain 2D echo to assess cardiac structure and function Resume home cardiac medications Continue IV Lasix 40 mg every 12 hours Daily weights, accurate intake and output, and monitoring of kidney function Patient takes Jardiance at home. Will substitute with Farxiga 10 mg daily while hospitalized acute toxic encephalopathy likely secondary to polypharmacy Resolved We'll resume pain medications but that at a lower dose. Hold baclofen, Zanaflex, Adderall. Continue Neurontin, Topamax and Zoloft for now. chronic Hypertension Hypothyroidism Hyperlipidemia All stable Resume meds Patient has baseline is not ambulatory, She lives at home with the help of her brother and several other services. Therefore does not qualify for physical therapy. Anticipate discharge in a.m.
[2024-03-10] MEDS: MORPHINE SULFATE ER 15 MG TABLET PO SCH (14:35)
[2024-03-10] MEDS: GABAPENTIN 300 MG CAP PO SCH (16:50)
[2024-03-10 17:04] LABS: Glucose,Whole Blood 166 mg/dL (70-110)
[2024-03-10 20:37] LABS: Glucose,Whole Blood 151 mg/dL (70-110)
[2024-03-10] MEDS: MELOXICAM 7.5 MG TAB PO SCH (21:11)
[2024-03-10] MEDS: PANTOPRAZOLE 40 MG TABLET PO SCH (21:11)
[2024-03-10] MEDS: busPIRone HCl 10 MG TAB PO SCH (21:12)
[2024-03-10] MEDS: OXYBUTYNIN 15 MG TAB.ER.24 PO SCH (21:12)
[2024-03-10] MEDS: GABAPENTIN 400 MG CAP PO SCH (21:12)
[2024-03-10] MEDS: SERTRALINE 100 MG TAB PO SCH (21:12)
[2024-03-10] MEDS: TOPIRAMATE 100 MG TAB PO SCH (21:12)
[2024-03-11 06:13] LABS: Glucose,Whole Blood 120 mg/dL (70-110)
[2024-03-11] MEDS: TOPIRAMATE 100 MG TAB PO SCH (09:38)
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
[2024-03-11 10:59] LABS: Blood Urea Nitrogen 18.3 mg/dL (9.0-27.0); Glucose 115 mg/dL (70-110); Magnesium 1.8 mg/dL (1.5-2.4)
[2024-03-11 11:00] LABS: ALT 60 U/L (8-44); AST 43 U/L (13-35); Albumin 3.4 g/dL (3.8-4.9); Albumin/Globulin Ratio 2.27 Ratio (1.60-3.17); Alkaline Phosphatase 128 U/L (41-126); Calcium 8.8 mg/dL (8.7-10.3); Carbon Dioxide 30.4 mmol/L (21.6-31.8); Chloride 106 mmol/L (96-109); Globulin 1.5 g/dL (1.6-3.3); Potassium 4.5 mmol/L (3.5-5.5); Sodium 143 mmol/L (135-145); Total Bilirubin 0.4 mg/dL (0.3-1.2); Total Protein 4.9 g/dL (6.2-8.2)
[2024-03-11 12:26] LABS: Glucose,Whole Blood 147 mg/dL (70-110)
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
--- NOTE | 2024-03-11 12:55 | CA ---
Transthoracic Echo Report Name: Carolina Cedillo Age: 58 Gender: F : 1965 Exam Date: 03/10/2024 15:15 Exam Location: [facility] [facility] Ht (in): 67 Wt (lb): 325 Ordering Physician: Dave Sheth MD Attending/Referring Phys: Android Framework Developer Angie Monk RDCS Procedure CPT: Indications: chf, eval for pericardial effusion Cardiac Hx: Technical Quality: Fair Contrast 1: Total Dose (mL): Contrast 2: Total Dose (mL): MEASUREMENTS (Male / Female) Normal Values 2D ECHO LV Diastolic Diameter PLAX 2.2 cm 4.2 - 5.9 / 3.9 - 5.3 cm LV Systolic Diameter PLAX 3.9 cm IVS Diastolic Thickness 3.8 cm 0.6 - 1.0 / 0.6 - 0.9 cm LVPW Diastolic Thickness 1.2 cm 0.6 - 1.0 / 0.6 - 0.9 cm LV Relative Wall Thickness 2.2 RV Internal Dim ED PLAX 2.1 cm LA Systolic Diameter LX 4.5 cm 3.0 - 4.0 / 2.7 - 3.8 cm M-MODE Aortic Root Diameter MM 3.7 cm LA Systolic Diameter MM 4.8 cm LA Ao Ratio MM 1.3 AV Cusp Separation MM 2.4 cm DOPPLER Mitral E Point Velocity 123.6 cm/s Mitral A Point Velocity 100.4 cm/s Mitral E to A Ratio 1.2 MV Deceleration Time 239.1 ms MV E' Velocity 8.4 cm/s Mitral E to MV E' Ratio 14.7 TR Peak Velocity 302.7 cm/s TR Peak Gradient 36.7 mmHg Right Atrial Pressure 10.0 mmHg Pulmonary Artery Systolic Pressu 46.7 mmHg Right Ventricular Systolic Press 46.7 mmHg FINDINGS Left Ventricle Left ventricular ejection fraction is estimated at 45-50 %. Moderately increased septal wall thickness. Mildly increased posterior wall thickness. Left ventricular dilatation. Right Ventricle Right ventricular dilatation. Moderate pulmonary hypertension. Right Atrium Mild right atrial dilatation. Left Atrium Moderately increased left atrial diameter. Mitral Valve Structurally normal mitral valve. No evidence for mitral valve prolapse. No mitral stenosis. Mild mitral regurgitation. Aortic Valve Trileaflet aortic valve. No aortic stenosis. Trace aortic regurgitation. Tricuspid Valve Structurally normal tricuspid valve. No tricuspid stenosis. Mild tricuspid regurgitation. Pulmonic Valve Structurally normal pulmonic valve. No pulmonic stenosis. No pulmonic regurgitation. Pericardium No pericardial effusion. Aorta Aortic annulus normal. CONCLUSIONS Left ventricular ejection fraction 45-50% Mild to moderately increased left ventricular wall thickness Mild mitral regurgitation Mild tricuspid regurgitation No pericardial effusion Previewed by: Dr. Travis Deng DO (Electronically Signed) Final Date: 11 March 2024 12:54
[2024-03-11 17:33] LABS: Glucose,Whole Blood 187 mg/dL (70-110)
[2024-03-11 20:12] LABS: Glucose,Whole Blood 166 mg/dL (70-110)
[2024-03-11 20:24] VITALS: RESP 18
[2024-03-12] MEDS: oxyCODONE-APAP 10-325MG 1 EACH TAB PO PRN (02:38)
[2024-03-12 06:14] LABS: Glucose,Whole Blood 174 mg/dL (70-110)
[2024-03-12 06:44] VITALS: BP 100/61; PULSE 57
[2024-03-12 06:49] VITALS: TEMP 98
[2024-03-12 12:19] LABS: Glucose,Whole Blood 193 mg/dL (70-110)
--- NOTE | 2024-03-12 17:30 | P.PN ---
Subjective Progress Note Date: 03/11/24 Principal diagnosis: sob She reports feeling well, denies having any chest pain or shortness of breath. No fevers or chills. No nausea or vomiting. States that her brother might have missed up the pills. He uUsually arranges her medications for her. Objective - Vital Signs Vital signs: Vital Signs Temp 98.0 F 03/12/24 06:43 Pulse 57 L 03/12/24 06:43 Resp 18 03/12/24 06:43 BP 100/61 03/12/24 06:43 Pulse Ox 99 03/12/24 06:43 FiO2 21 03/11/24 03:43 Intake & Output 03/11/24 03/12/24 03/12/24 18:59 06:59 18:59 Intake Total 720 118 Output Total 3200 2100 Balance -2479 Weight 121.5 kg Intake: Oral 720 118 Output: Urine 3200 2100 Other: Voiding Method External Catheter External Catheter External Catheter - Exam Constitutional: No acute distress, conversant, pleasant Eyes:Anicteric sclerae, moist conjunctiva, no lid-lag, PERRLA, ENMT: Oropharynx clear, no erythema, exudates Neck: Supple, FROM, no masses, or JVD, No carotid bruits, No thyromegaly Lungs: Clear to auscultation, Clear to percussion, Normal respiratory effort, no accessory muscle use Cardiovascular: Heart regular in rate and rhythm, No murmurs, gallops, or rubs, 2+ peripheral edema Abdominal: Soft, Nontender, no guarding, rebound or rigidity, Normoactive bowel sounds, No hepatomegaly, No splenomegaly, No palpable mass Skin: Normal temperature, tone, texture, turgor, no induration, No subcutaneous nodules, No rash, lesions, No ulcers Extremities: No digital cyanosis, No clubbing, Pedal pulses intact and symmetr ical, Radial pulses intact and symmetrical, No calf tenderness Psychiatric: Alert and oriented to person, place and time, appropriate affect, intact judgement Neuro: Muscles Strength 5/5 in all 4 extremities, Sensation to light touch grossly present throughout, Cranial nerves II-XII grossly intact, no focal sensory deficits - Labs CBC & Chem 7: 03/10/24 03:34 03/11/24 05:44 Labs: Abnormal Lab Results - Last 24 Hours (Table) 03/11/24 03/11/24 03/12/24 Range/Units 17:32 20:10 06:13 POC Glucose (mg/dL) 187 H 166 H 174 H (70-110) mg/dL 03/12/24 Range/Units 12:15 POC Glucose (mg/dL) 193 H (70-110) mg/dL Assessment and Plan Plan: Acute CHF exacerbation seen by cardiology Obtain 2D echo to assess cardiac structure and function Resume home cardiac medications Continue IV Lasix 40 mg every 12 hours Daily weights, accurate intake and output, and monitoring of kidney function Patient takes Jardiance at home. Will substitute with Farxiga 10 mg daily while hospitalized acute toxic encephalopathy likely secondary to polypharmacy Resolved We'll resume pain medications but that at a lower dose. Hold baclofen, Zanaflex, Adderall. Continue Neurontin, Topamax and Zoloft for now. chronic Hypertension Hypothyroidism Hyperlipidemia All stable Resume meds Patient has baseline is not ambulatory, She lives at home with the help of her brother and several other services. Therefore does not qualify for physical therapy. Anticipate discharge in a.m.
== END 2024-03-12 14:00 | disposition home or self-care (01) ==
LOC: EC 17:00 → 6NMEDSUR 21:08
PROVIDERS: ADMIT Internal Medicine; ATTEND Internal Medicine
DX: R53.82 Chronic fatigue, unspecified (principal); R41.82 Altered mental status, unspecified; I11.0 Hypertensive heart disease with heart failure; I50.33 Acute on chronic diastolic (congestive) heart failure; E78.5 Hyperlipidemia, unspecified; E11.40 Type 2 diabetes mellitus with diabetic neuropathy, unspecified; E66.01 Morbid (severe) obesity due to excess calories; F32.A Depression, unspecified; M54.9 Dorsalgia, unspecified; G89.29 Other chronic pain; I44.0 Atrioventricular block, first degree; Z68.43 Body mass index [BMI] 50.0-59.9, adult; Z79.1 Long term (current) use of non-steroidal anti-inflammatories (NSAID); Z79.4 Long term (current) use of insulin; Z79.84 Long term (current) use of oral hypoglycemic drugs; Z79.899 Other long term (current) drug therapy; Z80.7 Family history of other malignant neoplasms of lymphoid, hematopoietic and related tissues; Z83.3 Family history of diabetes mellitus; Z87.820 Personal history of traumatic brain injury; Z79.890 Hormone replacement therapy
CPT/HCPCS: 36415; 70450; 71046; 80053; 80143; 80179; 80306; 80320; 81001; 82140; 82803; 83036; 83605; 83735; 83880; 84484; 85025; 85610; 85730; 87636; 93005; 93306; 94660; 96361; 96365; 96372; 96375; 96376; 99285